=== PATIENT | male | born 1965 | race Caucasian/White ===

== ENCOUNTER 2022-08-27 19:05 | Inpatient (IN) | payer OTHER, SELFPAY ==
[2022-08-27] VITALS (65 sets, daily range): BP systolic 125–223; BP diastolic 64–105; PULSE 104–128; RESP 15–38; TEMP 36.6; O2SAT 86–98; BMI 30.1
--- NOTE | 2022-08-27 19:07 | DI.RAD.S_ITS ---
PROCEDURE: XR CHEST 1V INDICATIONS: SOB TECHNIQUE: One view of the chest was acquired. COMPARISON: None. FINDINGS: Surgical changes and devices: None. Lungs and pleura: Mild patchy reticulonodular pulmonary opacity. No pleural effusions or pneumothorax. Mediastinum: Mediastinal contours appear normal. Heart size is normal. Bones and chest wall: No suspicious bony lesions. Overlying soft tissues appear unremarkable. IMPRESSION: Mild atypical pneumonia. Dictated by: Yamilet Wesley M.D. on 08/27/2022 at 19:56 Approved by: Yamilet Wesley M.D. on 08/27/2022 at 19:56
--- NOTE | 2022-08-27 19:08 | ED.GENADULT ---
HPI - General Adult General Chief complaint: Shortness of Breath/Dyspnea Stated complaint: SOB Time Seen by Provider: 08/27/22 19:05 Source: patient and EMS Mode of arrival: EMS History of Present Illness HPI narrative: Patient is a 56-year-old male who arrived by EMS for evaluation of shortness of breath. Patient does have a history of COPD. Not on home oxygen. Is a smoker. Started having shortness of breath a couple days ago but worsening over the past 24 hours. No fevers. Is having a cough. Received 1 full DuoNeb by EMS and another half DuoNeb by EMS prior to arrival. Patient reports that he is having some heaviness on his chest. Reports no abdominal pain. No nausea or vomiting. He states that the nebulizer has helped his breathing somewhat but he is not back to normal. EMS reports they found the patient hypoxic into the 70s upon their arrival. His saturations did improve with oxygen and nebulizer. Related Data Allergies Allergy/AdvReac Type Severity Reaction Status Date / Time No Known Drug Allergies Allergy Verified 08/27/22 19:12 Review of Systems Review of Systems ROS Unobtainable: All systems reviewed & are unremarkable except as noted in HPI and below Patient History Medical History COPD (chronic obstructive pulmonary disease) Social History Smoking Status: Current every day smoker Exam Initial Vital Signs Initial Vital Signs: Vital Signs Temperature 97.9 F 08/27/22 19:05 Pulse Rate 120 H 08/27/22 19:05 Respiratory Rate 35 H 08/27/22 19:05 Blood Pressure 182/98 H 08/27/22 19:05 Pulse Oximetry 86 L 08/27/22 19:05 Oxygen Delivery Method 08/27/22 19:05 Oxygen Flow Rate 2 08/27/22 19:05 Const General: acute distress and ill appearing [facility] Head: normal to inspection and normocephalic Eyes General: Yes appearance normal, both eyes and all related structures Chest Chest: normal inspection of the chest Resp Effort & Inspection: labored, respiratory distress, retractions and tachypneic Auscultation: diminished lung sounds, rhonchi and wheezes Cardio Rate: tachycardic Rhythm: regular rhythm GI Inspection: normal to inspection and non-distended Skin General: No erythema Neuro General: patient alert, patient awake and moves all extremities Extrem General: No edema Psych Appearance: disheveled Course Orders Ordered: ED Orders 08/27/22 19:07 XR chest 1V Stat EKG-12 Lead Stat 08/27/22 19:13 Complete Blood Count AUTO DIFF Stat 08/27/22 19:26 Covid-19 + FLU A/B + RSV - PCR Stat 08/27/22 19:40 Comprehensive Metabolic Panel Stat Lipase Stat NT-proBNP (BNP-Adult 18+) Stat Troponin & CK Cardiac Panel Stat 08/27/22 19:55 ABG [Arterial Blood Gas] Stat 08/27/22 20:55 EKG-12 Lead Stat 08/27/22 21:45 Troponin & CK Cardiac Panel Stat 08/27/22 21:46 ABG [Arterial Blood Gas] Urgent 08/27/22 23:23 ABG [Arterial Blood Gas] Stat Acetaminophen (Acetaminophen 325 Mg Tablet) 650 mg PO Q6H PRN PRN Reason: Fever/Mild Pain (1-3) Albuterol (Albuterol 2.5 Mg/3 Ml Neb (Adult)) 2.5 mg INH [id number] PRN PRN Reason: Shortness Of Breath Or Wheezing Dexamethasone (Dexamethasone 10 Mg/Ml Vial) 6 mg IV DAILY [facility] Enoxaparin Sodium (Enoxaparin 40 Mg/0.4 Ml Syringe) 40 mg SUBCUT DAILY [facility] Folic Acid (Folic Acid 1 Mg Tablet) 1 mg PO DAILY [facility] Azithromycin 500 mg/ Dextrose 250 mls @ 250 mls/hr IV Q24H [facility] Remdesivir 100 mg/ Sodium (Chloride) 250 mls @ 250 mls/hr IV DAILY [facility] Stop: 08/31/22 09:59 Ipratropium Mcnabb (Ipratropium 0.5 Mg/2.5 Ml Neb) 0.5 mg INH [id number] JASPREET Multivitamins (Multivitamin 1 Tablet) 1 tab PO DAILY [facility] Naloxone HCl (Naloxone 0.4 Mg/Ml Vial) 0.2 mg IV Q2MIN PRN PRN Reason: Opiate Reversal Pantoprazole Sodium (Pantoprazole 40 Mg Vial) 40 mg IV DAILY [facility] Thiamine HCl (Thiamine 100 Mg Tablet) 100 mg PO DAILY JASPREET Stop: 08/31/22 09:01 Discontinued Medications Albuterol (Albuterol 2.5 Mg/3 Ml Neb (Adult)) 20 mg INH NOW ONE Stop: 08/27/22 19:06 Last Admin: 08/27/22 19:15 Dose: 20 mg Documented By: ANNIA Albuterol/Ipratropium (Albuterol/Ipratropium 3 Ml Ampul) 6 ml INH NOW ONE Stop: 08/27/22 19:49 Last Admin: 08/27/22 19:54 Dose: 6 ml Documented By: ANNIA Furosemide (Furosemide 40 Mg/4 Ml Vial) 40 mg IV NOW ONE Stop: 08/27/22 19:44 Last Admin: 08/27/22 20:04 Dose: 40 mg Documented By: MANI Remdesivir 200 mg/ Sodium (Chloride) 250 mls @ 250 mls/hr IV NOW ONE Stop: 08/28/22 01:21 Lorazepam (Lorazepam 2 Mg/Ml Inj) 1 mg IV NOW ONE Stop: 08/27/22 22:01 Last Admin: 08/27/22 23:05 Dose: 0.5 mg Documented By: ANA Methylprednisolone (Methylprednisolone 125 Mg/2 Ml Vial) 125 mg IV NOW ONE Stop: 08/27/22 19:07 Last Admin: 08/27/22 19:16 Dose: 125 mg Documented By: MANI Nitroglycerin (Nitroglycerin Oint 1 Inch/Gm Oint...G.) 1 inch TOP NOW ONE Stop: 08/27/22 20:54 Last Admin: 08/27/22 20:59 Dose: 1 inch Documented By: ANA Vital Signs Vital signs: Vital Signs - 8 hr 08/27/22 19:05 08/27/22 19:16 08/27/22 19:54 Temperature 97.9 F Pulse Rate 120 H 120 H 114 H Respiratory Rate 35 H 24 26 H Blood Pressure 182/98 H Pulse Oximetry 86 L 98 95 Oxygen Delivery Method Nasal Cannula Aerosol Mask Nasal Cannula Oxygen Flow Rate 2 8 3 Fraction of Inspired Oxygen 08/27/22 20:11 08/27/22 19:25 08/27/22 19:30 Temperature Pulse Rate 121 H Respiratory Rate 35 H Blood Pressure 223/97 H 197/96 H Pulse Oximetry 98 Oxygen Delivery Method Oxygen Flow Rate Fraction of Inspired Oxygen 35 08/27/22 19:30 08/27/22 19:35 08/27/22 19:40 Temperature Pulse Rate 120 H 119 H 120 H Respiratory Rate 34 H 33 H 33 H Blood Pressure Pulse Oximetry 97 97 Oxygen Delivery Method Oxygen Flow Rate Fraction of Inspired Oxygen 08/27/22 19:45 08/27/22 19:50 08/27/22 19:55 Temperature Pulse Rate 117 H 117 H 115 H Respiratory Rate 37 H 34 H 36 H Blood Pressure Pulse Oximetry 93 93 Oxygen Delivery Method Oxygen Flow Rate Fraction of Inspired Oxygen 08/27/22 20:00 08/27/22 20:00 08/27/22 20:05 Temperature Pulse Rate 115 H 116 H Respiratory Rate 32 H 33 H Blood Pressure 223/97 H Pulse Oximetry 95 96 Oxygen Delivery Method Oxygen Flow Rate Fraction of Inspired Oxygen 08/27/22 20:10 08/27/22 20:15 08/27/22 20:20 Temperature Pulse Rate 113 H 114 H 112 H Respiratory Rate 34 H 34 H 32 H Blood Pressure Pulse Oximetry 95 94 96 Oxygen Delivery Method Oxygen Flow Rate Fraction of Inspired Oxygen 08/27/22 20:25 08/27/22 20:30 08/27/22 20:31 Temperature Pulse Rate 110 H 110 H 113 H Respiratory Rate 35 H 32 H 32 H Blood Pressure Pulse Oximetry 94 93 94 Oxygen Delivery Method BiPAP BiPAP Oxygen Flow Rate Fraction of Inspired Oxygen 08/27/22 20:31 08/27/22 20:35 08/27/22 20:40 Temperature Pulse Rate 109 H 108 H Respiratory Rate 33 H 31 H Blood Pressure 151/70 H Pulse Oximetry 93 93 Oxygen Delivery Method BiPAP BiPAP Oxygen Flow Rate Fraction of Inspired Oxygen 08/27/22 20:45 08/27/22 20:50 08/27/22 20:55 Temperature Pulse Rate 108 H 106 H 104 H Respiratory Rate 33 H 30 H 30 H Blood Pressure Pulse Oximetry 92 92 92 Oxygen Delivery Method BiPAP BiPAP BiPAP Oxygen Flow Rate Fraction of Inspired Oxygen 08/27/22 21:00 08/27/22 21:00 08/27/22 21:05 Temperature Pulse Rate 105 H 109 H Respiratory Rate 30 H 26 H Blood Pressure 132/70 Pulse Oximetry 95 96 Oxygen Delivery Method BiPAP BiPAP Oxygen Flow Rate Fraction of Inspired Oxygen 08/27/22 21:10 08/27/22 21:15 08/27/22 21:20 Temperature Pulse Rate 104 H 104 H 104 H Respiratory Rate 32 H 33 H 31 H Blood Pressure Pulse Oximetry 96 94 94 Oxygen Delivery Method BiPAP Oxygen Flow Rate Fraction of Inspired Oxygen 08/27/22 21:25 08/27/22 21:30 08/27/22 21:30 Temperature Pulse Rate 109 H 105 H Respiratory Rate 29 H 31 H Blood Pressure 132/64 Pulse Oximetry 93 93 Oxygen Delivery Method Oxygen Flow Rate Fraction of Inspired Oxygen 08/27/22 22:19 08/27/22 21:35 08/27/22 21:40 Temperature Pulse Rate 107 H 108 H Respiratory Rate 31 H 30 H Blood Pressure 173/105 H Pulse Oximetry 94 94 Oxygen Delivery Method Oxygen Flow Rate Fraction of Inspired Oxygen 35 08/27/22 21:45 08/27/22 21:50 08/27/22 21:55 Temperature Pulse Rate 112 H 111 H 118 H Respiratory Rate 29 H 32 H 30 H Blood Pressure Pulse Oximetry 95 96 97 Oxygen Delivery Method Oxygen Flow Rate Fraction of Inspired Oxygen 08/27/22 22:00 08/27/22 22:03 08/27/22 22:03 Temperature Pulse Rate 121 H 122 H Respiratory Rate 31 H 31 H Blood Pressure 173/105 H Pulse Oximetry 94 95 Oxygen Delivery Method Oxygen Flow Rate Fraction of Inspired Oxygen 08/27/22 22:05 08/27/22 22:10 08/27/22 22:15 Temperature Pulse Rate 121 H 128 H 122 H Respiratory Rate 28 H 34 H 33 H Blood Pressure Pulse Oximetry 95 95 97 Oxygen Delivery Method Oxygen Flow Rate Fraction of Inspired Oxygen 08/27/22 22:20 08/27/22 22:25 08/27/22 22:30 Temperature Pulse Rate 121 H 119 H Respiratory Rate 31 H 31 H Blood Pressure 130/77 Pulse Oximetry 97 95 Oxygen Delivery Method Oxygen Flow Rate Fraction of Inspired Oxygen 08/27/22 22:30 08/27/22 22:35 08/27/22 22:40 Temperature Pulse Rate 116 H 113 H 112 H Respiratory Rate 30 H 33 H 32 H Blood Pressure Pulse Oximetry 95 95 94 Oxygen Delivery Method Oxygen Flow Rate Fraction of Inspired Oxygen 08/27/22 22:45 08/27/22 22:50 08/27/22 22:55 Temperature Pulse Rate 111 H 111 H 109 H Respiratory Rate 34 H 37 H 38 H Blood Pressure Pulse Oximetry 94 95 95 Oxygen Delivery Method Oxygen Flow Rate Fraction of Inspired Oxygen 08/27/22 23:00 08/27/22 23:05 08/27/22 23:10 Temperature Pulse Rate 109 H 109 H 109 H Respiratory Rate Blood Pressure Pulse Oximetry 95 95 94 Oxygen Delivery Method Oxygen Flow Rate Fraction of Inspired Oxygen 08/27/22 23:15 08/27/22 23:17 08/27/22 23:17 Temperature Pulse Rate 119 H 121 H Respiratory Rate Blood Pressure 125/77 Pulse Oximetry 93 Oxygen Delivery Method Oxygen Flow Rate Fraction of Inspired Oxygen 08/27/22 23:20 08/27/22 23:25 08/27/22 23:30 Temperature Pulse Rate 122 H 117 H 121 H Respiratory Rate 31 H 31 H 35 H Blood Pressure Pulse Oximetry 93 93 94 Oxygen Delivery Method Oxygen Flow Rate Fraction of Inspired Oxygen 08/27/22 23:31 08/27/22 23:31 08/27/22 23:35 Temperature Pulse Rate 120 H Respiratory Rate Blood Pressure 166/99 H 173/98 H Pulse Oximetry 94 Oxygen Delivery Method Oxygen Flow Rate Fraction of Inspired Oxygen 08/27/22 23:35 08/27/22 23:40 08/27/22 23:40 Temperature Pulse Rate 126 H 126 H Respiratory Rate 33 H Blood Pressure 172/87 H Pulse Oximetry 95 96 Oxygen Delivery Method Oxygen Flow Rate Fraction of Inspired Oxygen 08/27/22 23:45 08/27/22 23:50 08/27/22 23:50 Temperature Pulse Rate 120 H 124 H Respiratory Rate 31 H 31 H Blood Pressure 153/80 H Pulse Oximetry 96 96 Oxygen Delivery Method Oxygen Flow Rate Fraction of Inspired Oxygen 08/27/22 23:55 08/27/22 23:56 08/27/22 23:56 Temperature Pulse Rate 124 H 125 H Respiratory Rate Blood Pressure 133/87 Pulse Oximetry 97 96 Oxygen Delivery Method Oxygen Flow Rate Fraction of Inspired Oxygen 08/28/22 00:00 08/28/22 00:00 08/28/22 00:10 Temperature Pulse Rate 124 H Respiratory Rate 32 H Blood Pressure 137/87 135/86 Pulse Oximetry 96 Oxygen Delivery Method Oxygen Flow Rate Fraction of Inspired Oxygen 35 Medical Decision Making Lab Data Lab results reviewed: Yes I reviewed the patient's lab results. Result diagrams: 08/27/22 19:13 08/27/22 19:40 Labs: Lab Results 08/27/22 08/27/22 08/27/22 Range/Units 19:13 19:26 19:40 WBC 14.9 H (4.5-11.0) X10^3/uL RBC 5.33 (4.5-5.9) X10^6/uL Hgb 18.3 H (13.5-17.5) g/dL Hct 54.3 H (41-53) % MCV 101.8 H (80-100) fL MCH 34.2 H (26-34) PG MCHC 33.6 (30-36) % RDW 15.4 H (11.6-14.8) % Plt Count 313 (150-400) X10^3/uL Neut % (Auto) 86.3 H (50-75) % Lymph % (Auto) 5.2 L (25-40) % Woodward % (Auto) 8.2 (3-14) % Eos % (Auto) 0.1 L (2-4) % Baso % (Auto) 0.2 (0-2) % Neut # (Auto) 15180 H (6310-4170) /uL Lymph # (Auto) 800 L (7781-5623) /uL Woodward # (Auto) 1200 H (0-900) /uL Eos # (Auto) 0 (0-450) /uL Baso # (Auto) 0 (0-100) /uL ABG pH (7.35-7.45) ABG pCO2 (35-45) mmHg ABG pO2 (80-100) mmHg ABG HCO3 (22-26) mmol/L ABG Total CO2 (21-31) mmol/L ABG O2 Saturation (95-100) % ABG Base Excess (-2-2) mmol/L FiO2 Sodium 131 L (137-145) mmol/L Potassium 3.7 (3.4-5.1) mmol/L Chloride 84 L (98-107) mmol/L Carbon Dioxide 33 H (22-32) mmol/L BUN 29 H (9-20) mg/dL Creatinine 2.18 H (0.66-1.25) mg/dL Estimated GFR 34 L (>60) mL/min BUN/Creatinine Ratio 13.3 (6-22) Glucose 159 H (70-100) mg/dL Calcium 10.1 (8.4-10.2) mg/dL Total Bilirubin 1.1 (0.2-1.3) mg/dL AST 30 (17-59) IU/L ALT 23 (<50) IU/L Alkaline Phosphatase 99 (38-126) U/L Total Creatine Kinase 55 (55-170) U/L CK-MB (CK-2) TNP CK-MB (CK-2) Rel Index TNP Troponin I 0.160 H* (0.01-0.034) ng/mL NT-Pro-B Natriuret Pep 3930 H (<125) pg/mL Total Protein 8.4 H (6.3-8.2) g/dL Albumin 4.4 (3.5-5.0) g/dL Globulin 4.0 (1.7-4.1) g/dL Albumin/Globulin Ratio 1.1 (1.0-2.8) Lipase 50 (23-300) U/L SARS-CoV-2 (PCR) Positive H (Negative) Influenza A (RT-PCR) Flu a positive H (NEGATIVE) Influenza B (RT-PCR) Flu b negative (NEGATIVE) RSV (PCR) Negative (Negative) 08/27/22 08/27/22 08/27/22 Range/Units 19:55 21:45 21:46 WBC (4.5-11.0) X10^3/uL RBC (4.5-5.9) X10^6/uL Hgb (13.5-17.5) g/dL Hct (41-53) % MCV (80-100) fL MCH (26-34) PG MCHC (30-36) % RDW (11.6-14.8) % Plt Count (150-400) X10^3/uL Neut % (Auto) (50-75) % Lymph % (Auto) (25-40) % Woodward % (Auto) (3-14) % Eos % (Auto) (2-4) % Baso % (Auto) (0-2) % Neut # (Auto) (3246-0216) /uL Lymph # (Auto) (8779-8450) /uL Woodward # (Auto) (0-900) /uL Eos # (Auto) (0-450) /uL Baso # (Auto) (0-100) /uL ABG pH 7.13 L* 7.16 L* (7.35-7.45) ABG pCO2 108.5 H* 103.5 H* (35-45) mmHg ABG pO2 102 H 87 (80-100) mmHg ABG HCO3 36 H 37 H (22-26) mmol/L ABG Total CO2 39 H 40 H (21-31) mmol/L ABG O2 Saturation 95 92 L (95-100) % ABG Base Excess 7.0 H 8.0 H (-2-2) mmol/L FiO2 32 35 Sodium (137-145) mmol/L Potassium (3.4-5.1) mmol/L Chloride (98-107) mmol/L Carbon Dioxide (22-32) mmol/L BUN (9-20) mg/dL Creatinine (0.66-1.25) mg/dL Estimated GFR (>60) mL/min BUN/Creatinine Ratio (6-22) Glucose (70-100) mg/dL Calcium (8.4-10.2) mg/dL Total Bilirubin (0.2-1.3) mg/dL AST (17-59) IU/L ALT (<50) IU/L Alkaline Phosphatase (38-126) U/L Total Creatine Kinase 67 (55-170) U/L CK-MB (CK-2) TNP CK-MB (CK-2) Rel Index TNP Troponin I 0.174 H* (0.01-0.034) ng/mL NT-Pro-B Natriuret Pep (<125) pg/mL Total Protein (6.3-8.2) g/dL Albumin (3.5-5.0) g/dL Globulin (1.7-4.1) g/dL Albumin/Globulin Ratio (1.0-2.8) Lipase (23-300) U/L SARS-CoV-2 (PCR) (Negative) Influenza A (RT-PCR) (NEGATIVE) Influenza B (RT-PCR) (NEGATIVE) RSV (PCR) (Negative) 08/27/22 Range/Units 23:23 WBC (4.5-11.0) X10^3/uL RBC (4.5-5.9) X10^6/uL Hgb (13.5-17.5) g/dL Hct (41-53) % MCV (80-100) fL MCH (26-34) PG MCHC (30-36) % RDW (11.6-14.8) % Plt Count (150-400) X10^3/uL Neut % (Auto) (50-75) % Lymph % (Auto) (25-40) % Woodward % (Auto) (3-14) % Eos % (Auto) (2-4) % Baso % (Auto) (0-2) % Neut # (Auto) (3996-5808) /uL Lymph # (Auto) (6388-7722) /uL Woodward # (Auto) (0-900) /uL Eos # (Auto) (0-450) /uL Baso # (Auto) (0-100) /uL ABG pH 7.20 L* (7.35-7.45) ABG pCO2 88.4 H* (35-45) mmHg ABG pO2 82 (80-100) mmHg ABG HCO3 35 H (22-26) mmol/L ABG Total CO2 37 H (21-31) mmol/L ABG O2 Saturation 92 L (95-100) % ABG Base Excess 6.0 H (-2-2) mmol/L FiO2 35 Sodium (137-145) mmol/L Potassium (3.4-5.1) mmol/L Chloride (98-107) mmol/L Carbon Dioxide (22-32) mmol/L BUN (9-20) mg/dL Creatinine (0.66-1.25) mg/dL Estimated GFR (>60) mL/min BUN/Creatinine Ratio (6-22) Glucose (70-100) mg/dL Calcium (8.4-10.2) mg/dL Total Bilirubin (0.2-1.3) mg/dL AST (17-59) IU/L ALT (<50) IU/L Alkaline Phosphatase (38-126) U/L Total Creatine Kinase (55-170) U/L CK-MB (CK-2) CK-MB (CK-2) Rel Index Troponin I (0.01-0.034) ng/mL NT-Pro-B Natriuret Pep (<125) pg/mL Total Protein (6.3-8.2) g/dL Albumin (3.5-5.0) g/dL Globulin (1.7-4.1) g/dL Albumin/Globulin Ratio (1.0-2.8) Lipase (23-300) U/L SARS-CoV-2 (PCR) (Negative) Influenza A (RT-PCR) (NEGATIVE) Influenza B (RT-PCR) (NEGATIVE) RSV (PCR) (Negative) Imaging Data Chest x-ray: Radiologist's Impression: [address] [address] XRay Report Signed Patient: Willie Valentin MR#: [id number] : 1965 Acct:[id number] Age/Sex: 56 / M Date of Service: 08/27/22 Loc: ED Accession Number: [id number] ?? Procedure: XR chest 1V Ordering Provider: Gavin French D.O. PROCEDURE:? XR CHEST 1V ? INDICATIONS:? SOB ? TECHNIQUE:? One view of the chest was acquired.? ? COMPARISON:? None. ? FINDINGS:? ? Surgical changes and devices:? None.? ? Lungs and pleura:? Mild patchy reticulonodular pulmonary opacity.? No pleural effusions or pneumothorax.? ? Mediastinum:? Mediastinal contours appear normal.? Heart size is normal.? ? Bones and chest wall:? No suspicious bony lesions.? Overlying soft tissues appear unremarkable.? ? IMPRESSION:? Mild atypical pneumonia. ? ? Dictated by: Yamilet Wesley M.D. on 08/27/2022 at 19:56 ? ? Approved by: Yamilet Wesley M.D. on 08/27/2022 at 19:56?? ECG Data Interpretation: Presentation EKG Sinus tachycardia Ventricular rate 121 Normal axis Artifact noted making ST segment difficult to interpret Repeat EKG Sinus tachycardia Left axis deviation Ventricular rate 108 Normal QRS Normal QTC MDM Narrative Medical decision making narrative: Initially the concern was a COPD exacerbation. He did seem to be improving somewhat with the nebulizers but was still having very coarse breath sounds. He did become somewhat somnolent. An ABG was obtained. He did have a respiratory acidosis with a CO2 of 108. He also has an elevated BNP. Also an elevated troponin. Was also hypertensive. Concern for CHF. He was given nitro paste which improved his blood pressure. Was given Lasix. Troponin was unchanged after 2 hour repeat. He was placed on BiPAP. Initial EKG somewhat difficult to interpret given the baseline artifact. Repeat EKG shows sinus tachycardia without ST elevations. I suspect that his increased troponin was related to demand ischemia given his other presentations. He was given steroids as well. Repeat ABG shows improvement CO2 to 103. We continue with BiPAP. He was tolerating it well. He did have some episodes of agitation. His CO2 continue to improve. Patient was also positive for COVID and influenza a. After discussion with the admission team he was started on remdesivir. He does not have a history of CHF per family. Will admit to ICU for further evaluation and treatment. Critical Care Time Critical Care Time Critical Care Time: Yes Total Critical Care Time: 45 Attestation: The high probability of a clinically significant, sudden or life threatening deterioration of the []cardiovascular, respiratory system(s) required my full and direct attention, intervention and personal management. The aggregate critical care time was [45] minutes. This time is in addition to time spent performing reported procedures but includes the following: [x] Data Review and interpretation [x] Patient assessment and monitoring of vital signs [x] Documentation [x] Medication orders and management Discharge Plan Departure Patient Disposition: Admitted As Inpatient Clinical Impression: Acute hypercapnic respiratory failure, COPD (chronic obstructive pulmonary disease), Hypertension, Influenza A, COVID-19 Admit Date/Time: 08/28/22 00:24 Admit Provider: Shabana Garces
[2022-08-27] MEDS: ALBUTEROL 2.5 MG/3 ML NEB (ADULT) 20 MG INH (19:15)
[2022-08-27] MEDS: methylPREDNISolone 125 MG/2 ML VIAL IV (19:16)
[2022-08-27 19:37] LABS: Add Manual Diff / Slide Review NO; Basophils Absolute Auto 0 /uL (0-100); Basophils Percent Auto 0.2 % (0-2); Eosinophils Absolute Auto 0 /uL (0-450); Eosinophils Percent Auto 0.1 % (2-4); Hematocrit 54.3 % (41-53); Hemoglobin 18.3 g/dL (13.5-17.5); Lymphocytes Absolute Auto 800 /uL (1100-4500); Lymphocytes Percent Auto 5.2 % (25-40); Mean Corpuscular HGB Conc 33.6 % (30-36); Mean Corpuscular Hemoglobin 34.2 PG (26-34); Mean Corpuscular Volume 101.8 fL (80-100); Monocytes Absolute Auto 1200 /uL (0-900); Monocytes Percent Auto 8.2 % (3-14); Neutrophils Absolute Auto 12900 /uL (1500-7000); Neutrophils Percent Auto 86.3 % (50-75); Platelet Count 313 X10^3/uL (150-400); Red Blood Cell Count 5.33 X10^6/uL (4.5-5.9); Red Cell Distribution Width 15.4 % (11.6-14.8); White Blood Cell Count 14.9 X10^3/uL (4.5-11.0)
[2022-08-27] MEDS: ALBUTEROL/IPRATROPIUM 3 ML AMPUL 6 ML INH (19:54)
[2022-08-27] MEDS: FUROSEMIDE 40 MG/4 ML VIAL IV (20:04)
[2022-08-27 20:09] LABS: pH ABG 7.13 (7.35-7.45)
[2022-08-27 20:09] LABS: Influenza A - CEPHEID Flu A POSITIVE (NEGATIVE); Influenza B - CEPHEID Flu B NEGATIVE (NEGATIVE); Respiratory Syncytial Virus Negative (Negative)
[2022-08-27 20:10] LABS: Fractionated Inspired Oxygen 32; HCO3 ABG 36 mmol/L (22-26); Oxygen Saturation ABG 95 % (95-100); PCO2 ABG 108.5 mmHg (35-45); PO2 ABG 102 mmHg (80-100); TCO2 ABG 39 mmol/L (21-31)
[2022-08-27 20:14] LABS: Alanine Aminotransferase 23 IU/L (<50); Albumin 4.4 g/dL (3.5-5.0); Albumin Globulin Ratio 1.1 (1.0-2.8); Alkaline Phosphatase 99 U/L (38-126); Aspartate Aminotransferase 30 IU/L (17-59); BUN Creatinine Ratio 13.3 (6-22); Bilirubin Total 1.1 mg/dL (0.2-1.3); Blood Urea Nitrogen 29 mg/dL (9-20); Calcium 10.1 mg/dL (8.4-10.2); Carbon Dioxide 33 mmol/L (22-32); Chloride 84 mmol/L (98-107); Creatine Kinase 55 U/L (55-170); Estimated Glomerular Filt Rate 34 mL/min (>60); Glucose 159 mg/dL (70-100); HEMOLYSIS < 15 (0-50); Lipase 50 U/L (23-300); Potassium 3.7 mmol/L (3.4-5.1); Sodium 131 mmol/L (137-145); Total Protein 8.4 g/dL (6.3-8.2)
[2022-08-27 20:24] LABS: COVID-19 CEPHEID 4-PLEX PCR POSITIVE (Negative)
[2022-08-27 20:26] LABS: NT-proBNP (BNP-Adult 18+) 3930 pg/mL (<125)
--- NOTE | 2022-08-27 20:27 | PC.NURSE ---
Pts family arrived. Informed that he is +COVID and Flu. Warned of the risks of being in the room with him. They accepted the risk and went into the room with the pt.
[2022-08-27] MEDS: NITROGLYCERIN OINT 1 INCH/GM OINT...G. TOP (20:59)
[2022-08-27 22:05] LABS: Creatine Kinase 67 U/L (55-170)
[2022-08-27 22:10] LABS: HCO3 ABG 37 mmol/L (22-26); Oxygen Saturation ABG 92 % (95-100); PCO2 ABG 103.5 mmHg (35-45); PO2 ABG 87 mmHg (80-100); TCO2 ABG 40 mmol/L (21-31); pH ABG 7.16 (7.35-7.45)
[2022-08-27 22:11] LABS: Fractionated Inspired Oxygen 35
[2022-08-27 22:20] LABS: Troponin I 0.174 ng/mL (0.01-0.034)
[2022-08-27] MEDS: LORazepam 2 MG/ML INJ 1 MG IV (23:05)
[2022-08-28] VITALS (238 sets, daily range): BP systolic 75–159; BP diastolic 48–91; PULSE 98–126; RESP 15–61; TEMP 26.1–36.6; O2SAT 92–100; BMI 30.2
[2022-08-28 00:01] LABS: PCO2 ABG 88.4 mmHg (35-45); PO2 ABG 82 mmHg (80-100)
[2022-08-28 00:02] LABS: Fractionated Inspired Oxygen 35; HCO3 ABG 35 mmol/L (22-26); Oxygen Saturation ABG 92 % (95-100); TCO2 ABG 37 mmol/L (21-31)
--- NOTE | 2022-08-28 00:12 | PC.NURSE ---
Patient became agitated and waiting to pee. Patient informed of cathether. Patient pulled of bipap mask. With assistance from and respiratory therapist we were able to replace the bipap mask.
--- NOTE | 2022-08-28 00:26 | PC.NURSE ---
DIRECTOR OF ARCHITECTURE note: Checked in with other hospitals to see if they have any ICU beds opened. Called [facility], [facility], [place], [facility], [facility], and [facility] have zero icu beds. Doctors aware.
--- NOTE | 2022-08-28 00:50 | DI.ECHO.S_ITS ---
[facility] +---------+ : : [address] : : : : [id number] : : : : Phone: [phone] Echocardiogram Report + + :Name: KEILA BYERS Study Date: 08/28/2022 Height: 70 in : :[facility] ReadingLocation: Weight: 210 lb : : Gender: Male BSA: 2.1 m2 : :: 1965 Age: 56 yrs BP: 126/71 mmHg: :Reason For Study: Elevated troponin, shortness of breath : :Ordering Physician: ARIE, : :SHELLY Performed By: Sandra Colunga : :Referring: SHELLY SARGENT : + + Interpretation Summary 1) Moderately increased left ventricular thickness (concentric) with small size, normal wall motion, and normal systolic function (EF 65-70%). 2) Moderately enlarged right ventricle with mildly reduced function. The apex of the RV is hypokinetic, suggesting Craig sign (acute cor pulmonale- example pulmonary embolism). 3) No significant valvular abnormalities. 4) No prior Echo available for comparison. Recommend ruling out acute pulmonary embolism. Procedure: A two-dimensional transthoracic echocardiogram with color flow and Doppler was performed. The study quality was technically difficult. The patient was in sinus tachycardia with heart rates between 105-115 bpm during the exam. Left Ventricle: Left ventricular wall thickness is moderately increased. The left ventricular cavity is small. The ejection fraction is estimated to be 65- 70%. Diastolic parameters suggest a relaxation abnormality of the left ventricle, consistent with probable normal filling pressures. Right Ventricle: The right ventricle is moderately dilated. Right ventricular systolic function is mildly reduced. The apex of the RV is hypokinetic, suggesting Craig sign. Atria: The left atrium is not well visualized. Right atrial size is normal. Doppler interrogation and injection of saline echo contrast shows no evidence for an interatrial shunt. Mitral Valve: The mitral valve is normal in structure and function. There is no mitral regurgitation noted. Aortic Valve: The aortic valve is normal in structure and function. There is no aortic valve stenosis. No aortic regurgitation is present. Tricuspid Valve: The tricuspid valve is normal in structure and function. There is a trace or physiologic amount of tricuspid regurgitation. Pulmonary artery pressures cannot be estimated because of the lack of a measurable TR jet velocity. Pulmonic Valve: The pulmonic valve leaflets are thin and pliable; valve motion is normal. Great Vessels: The aortic root is normal size. The ascending aorta could not be visualized. The aortic arch could not be visualized. The IVC is dilated (diameter is greater than 2.1 cm) and it collapses less than 50% with a sniff. This suggests a high right atrial pressure of 15 mm Hg. Pericardium/ Pleura There is no pericardial effusion. There is an anterior echo-free space consistent with a fat pad. There is no pleural effusion. MMode/2D Measurements & Calculations LVIDd: 3.1 cm LVOT diam: 2.2 cm LVIDs: 2.0 cm Ao root diam: 3.4 cm FS: 36.9 % EPSS: 0.15 cm IVSd: 1.5 cm LVPWd: 1.5 cm LV almaraz. diameter/BSA (cm/m^2): 1.5 LV sys. diameter/BSA (cm/m^2): 0.92 RA long axis: 4.7 cm TAPSE: 1.8 cm RA area: 17.3 cm2 RA vol: 54.0 ml RA : 25.3 ml/m2 Doppler Measurements & Calculations Ao V2 max: 124.6 cm/sec LVOT Max David: 117.5 cm/sec Ao V2 mean: 103.3 cm/sec LV V1 max P.5 mmHg Ao max P.2 mmHg LV V1 VTI: 21.6 cm Ao mean P.4 mmHg KIARA(I,D): 4.0 cm2 Ao V2 VTI: 21.2 cm KIARA(V,D): 3.7 cm2 sev ratio: 1.0 KIARA indexed to BSA (cm^2/m^2): 1.9 MV E max david: 55.9 cm/sec TR max david: 246.0 cm/sec MV A max david: 80.5 cm/sec TR max P.2 mmHg MV E/A: 0.69 PA V2 max: 78.5 cm/sec Med Peak E' David: 7.4 cm/sec PA V2 mean: 59.5 cm/sec E/E' med: 7.6 PA mean P.5 mmHg Lat Peak E' David: 7.4 cm/sec E/E' lat: 7.5 E/e' average: 7.6 MV dec time: 0.20 sec MVA(VTI): 6.7 cm2 MV V2 mean: 74.2 cm/sec SV(LVOT): 84.6 ml MV mean P.4 mmHg MV V2 VTI: 12.7 cm Reading Physician:12:29 PM
[2022-08-28] MEDS: REMDESIVIR 200 MG in SODIUM CHLORIDE 0.9% 210 ML 250 MG IV (01:56)
[2022-08-28] MEDS: AZITHROMYCIN 500 MG in DEXTROSE 5% IN WATER 250 ML 250 MG IV (02:06)
[2022-08-28] MEDS: cefTRIAXone 1,000 MG in SODIUM CHLORIDE 0.9% 100 ML 200 MG IV (03:24)
--- NOTE | 2022-08-28 03:25 | P.HP_ITS ---
History of Present Illness History of Present Illness Date Patient Seen: 08/28/22 Time Patient Seen: 00:24 Chief complaint: SOB Narrative: Willie Valentin is a 56-year-old male who arrived by EMS for evaluation of shortness of breath.? Patient does have a history of COPD but is not on home oxygen.? Unable to obtain history from the patient as he is currently on BiPAP and appears to be mildly encephalopathic. History is obtained from his and the emergency department provider. Patient is a smoker, per his he normally smokes 1 pack a day but as of recent has been smoking 2-3 packs per day.? Started having shortness of breath a couple days ago but worsening over the past 24 hours.? She denies he is had any fevers but is having a cough.? Patient reports that he is having some heaviness on his chest.? Denied abdominal pain, nausea or vomiting.? Received 1 full DuoNeb by EMS and another half DuoNeb by EMS prior to arrival to the ED.?He states that the nebulizer has helped his breathing somewhat but he is not back to normal.? EMS reports they found the patient hypoxic into the 70s upon their arrival.? His saturations did improve with oxygen and nebulizer and was put on BiPAP in the ED. As his breathing improved he became a little bit more anxious and was trying to take off his BiPAP mask. Initially the concern was a COPD exacerbation.? He did seem to be improving somewhat with the nebulizers but was still having very coarse breath sounds.? He did become somewhat somnolent.? An ABG was obtained.? He did have a respiratory acidosis with a CO2 of 108.? He also has an elevated BNP an elevated troponin concerning for CHF and was also hypertensive.? He was given nitro paste which improved his blood pressure.? Was given Lasix.? Troponin was unchanged after 2 hour repeat.? He was placed on BiPAP.? Initial EKG somewhat difficult to in terpret given the baseline artifact.? Repeat EKG shows sinus tachycardia without ST elevations.? He was given steroids as well.? Repeat ABG shows improvement CO2 to 103.? He was tolerat bipap well.? He did have some episodes of agitation and confusion.? His CO2 continue to improve.? Patient was also positive for COVID and influenza a.? After discussion with the admission team he was started on rem desivir.? He does not have a history of CHF per family.? Will admit to ICU for further evaluation and treatment. Chest x-ray only indicated mild atypical pneumonia. He does have an elevated white count at 14.9 with a moderate left shift of 13,000, platelet count 313. Initial presenting pH was 7.13 it is now improved to 7.2, pCO2 was initially 108.5 and it is now 88.4 sodium 131 chloride 84 serum CO2 is 33 creatinine 2.18 unknown what his baseline is with an EGFR of 34 and a BUN of 29 glucose 159 initial troponin at 7:40 p.m. was 0.160, it increased to 0.174 at 9:45 p.m. and a 6 hour troponin is pending, proBNP was 3930 inpatient is positive for both COVID-19 and influenza a. Patient History Medical History COPD (chronic obstructive pulmonary disease) Family & Social History Family history unavailable: Yes Safety & Behavioral: Feels Safe in Current Yes Environment Been Physically Hurt or No Threatened By a Person Tobacco & Substance use: Smoking Status Current every day smoker 1-2 packs per day alcohol intake frequency daily Substance Use Type does not use Meds Home Medications and Allergies Allergies Allergy/AdvReac Type Severity Reaction Status Date / Time No Known Drug Allergies Allergy Verified 08/27/22 19:12 Review of Systems Review of Systems ROS: Yes unobtainable due to mental status Exam Vital Signs (past 8 hours): - 08/27/22 19:54 08/27/22 20:11 08/27/22 19:30 Pulse Rate 114 H Respiratory Rate 26 H Blood Pressure 223/97 H 197/96 H Pulse Oximetry 95 Oxygen Delivery Method Nasal Cannula Oxygen Flow Rate 3 Fraction of Inspired Oxygen 35 08/27/22 19:30 08/27/22 19:35 08/27/22 19:40 Pulse Rate 120 H 119 H 120 H Respiratory Rate 34 H 33 H 33 H Blood Pressure Pulse Oximetry 97 97 Oxygen Delivery Method Oxygen Flow Rate Fraction of Inspired Oxygen 08/27/22 19:45 08/27/22 19:50 08/27/22 19:55 Pulse Rate 117 H 117 H 115 H Respiratory Rate 37 H 34 H 36 H Blood Pressure Pulse Oximetry 93 93 Oxygen Delivery Method Oxygen Flow Rate Fraction of Inspired Oxygen 08/27/22 20:00 08/27/22 20:00 08/27/22 20:05 Pulse Rate 115 H 116 H Respiratory Rate 32 H 33 H Blood Pressure 223/97 H Pulse Oximetry 95 96 Oxygen Delivery Method Oxygen Flow Rate Fraction of Inspired Oxygen 08/27/22 20:10 08/27/22 20:15 08/27/22 20:20 Pulse Rate 113 H 114 H 112 H Respiratory Rate 34 H 34 H 32 H Blood Pressure Pulse Oximetry 95 94 96 Oxygen Delivery Method Oxygen Flow Rate Fraction of Inspired Oxygen 08/27/22 20:25 08/27/22 20:30 08/27/22 20:31 Pulse Rate 110 H 110 H 113 H Respiratory Rate 35 H 32 H 32 H Blood Pressure Pulse Oximetry 94 93 94 Oxygen Delivery Method BiPAP BiPAP Oxygen Flow Rate Fraction of Inspired Oxygen 08/27/22 20:31 08/27/22 20:35 08/27/22 20:40 Pulse Rate 109 H 108 H Respiratory Rate 33 H 31 H Blood Pressure 151/70 H Pulse Oximetry 93 93 Oxygen Delivery Method BiPAP BiPAP Oxygen Flow Rate Fraction of Inspired Oxygen 08/27/22 20:45 08/27/22 20:50 08/27/22 20:55 Pulse Rate 108 H 106 H 104 H Respiratory Rate 33 H 30 H 30 H Blood Pressure Pulse Oximetry 92 92 92 Oxygen Delivery Method BiPAP BiPAP BiPAP Oxygen Flow Rate Fraction of Inspired Oxygen 08/27/22 21:00 08/27/22 21:00 08/27/22 21:05 Pulse Rate 105 H 109 H Respiratory Rate 30 H 26 H Blood Pressure 132/70 Pulse Oximetry 95 96 Oxygen Delivery Method BiPAP BiPAP Oxygen Flow Rate Fraction of Inspired Oxygen 08/27/22 21:10 08/27/22 21:15 08/27/22 21:20 Pulse Rate 104 H 104 H 104 H Respiratory Rate 32 H 33 H 31 H Blood Pressure Pulse Oximetry 96 94 94 Oxygen Delivery Method BiPAP Oxygen Flow Rate Fraction of Inspired Oxygen 08/27/22 21:25 08/27/22 21:30 08/27/22 21:30 Pulse Rate 109 H 105 H Respiratory Rate 29 H 31 H Blood Pressure 132/64 Pulse Oximetry 93 93 Oxygen Delivery Method Oxygen Flow Rate Fraction of Inspired Oxygen 08/27/22 22:19 08/27/22 21:35 08/27/22 21:40 Pulse Rate 107 H 108 H Respiratory Rate 31 H 30 H Blood Pressure 173/105 H Pulse Oximetry 94 94 Oxygen Delivery Method Oxygen Flow Rate Fraction of Inspired Oxygen 35 08/27/22 21:45 08/27/22 21:50 08/27/22 21:55 Pulse Rate 112 H 111 H 118 H Respiratory Rate 29 H 32 H 30 H Blood Pressure Pulse Oximetry 95 96 97 Oxygen Delivery Method Oxygen Flow Rate Fraction of Inspired Oxygen 08/27/22 22:00 08/27/22 22:03 08/27/22 22:03 Pulse Rate 121 H 122 H Respiratory Rate 31 H 31 H Blood Pressure 173/105 H Pulse Oximetry 94 95 Oxygen Delivery Method Oxygen Flow Rate Fraction of Inspired Oxygen 08/27/22 22:05 08/27/22 22:10 08/27/22 22:15 Pulse Rate 121 H 128 H 122 H Respiratory Rate 28 H 34 H 33 H Blood Pressure Pulse Oximetry 95 95 97 Oxygen Delivery Method Oxygen Flow Rate Fraction of Inspired Oxygen 08/27/22 22:20 08/27/22 22:25 08/27/22 22:30 Pulse Rate 121 H 119 H Respiratory Rate 31 H 31 H Blood Pressure 130/77 Pulse Oximetry 97 95 Oxygen Delivery Method Oxygen Flow Rate Fraction of Inspired Oxygen 08/27/22 22:30 08/27/22 22:35 08/27/22 22:40 Pulse Rate 116 H 113 H 112 H Respiratory Rate 30 H 33 H 32 H Blood Pressure Pulse Oximetry 95 95 94 Oxygen Delivery Method Oxygen Flow Rate Fraction of Inspired Oxygen 08/27/22 22:45 08/27/22 22:50 08/27/22 22:55 Pulse Rate 111 H 111 H 109 H Respiratory Rate 34 H 37 H 38 H Blood Pressure Pulse Oximetry 94 95 95 Oxygen Delivery Method Oxygen Flow Rate Fraction of Inspired Oxygen 08/27/22 23:00 08/27/22 23:05 08/27/22 23:10 Pulse Rate 109 H 109 H 109 H Respiratory Rate Blood Pressure Pulse Oximetry 95 95 94 Oxygen Delivery Method Oxygen Flow Rate Fraction of Inspired Oxygen 08/27/22 23:15 08/27/22 23:17 08/27/22 23:17 Pulse Rate 119 H 121 H Respiratory Rate Blood Pressure 125/77 Pulse Oximetry 93 Oxygen Delivery Method Oxygen Flow Rate Fraction of Inspired Oxygen 08/27/22 23:20 08/27/22 23:25 08/27/22 23:30 Pulse Rate 122 H 117 H 121 H Respiratory Rate 31 H 31 H 35 H Blood Pressure Pulse Oximetry 93 93 94 Oxygen Delivery Method Oxygen Flow Rate Fraction of Inspired Oxygen 08/27/22 23:31 08/27/22 23:31 08/27/22 23:35 Pulse Rate 120 H Respiratory Rate Blood Pressure 166/99 H 173/98 H Pulse Oximetry 94 Oxygen Delivery Method Oxygen Flow Rate Fraction of Inspired Oxygen 08/27/22 23:35 08/27/22 23:40 08/27/22 23:40 Pulse Rate 126 H 126 H Respiratory Rate 33 H Blood Pressure 172/87 H Pulse Oximetry 95 96 Oxygen Delivery Method Oxygen Flow Rate Fraction of Inspired Oxygen 08/27/22 23:45 08/27/22 23:50 08/27/22 23:50 Pulse Rate 120 H 124 H Respiratory Rate 31 H 31 H Blood Pressure 153/80 H Pulse Oximetry 96 96 Oxygen Delivery Method Oxygen Flow Rate Fraction of Inspired Oxygen 08/27/22 23:55 08/27/22 23:56 08/27/22 23:56 Pulse Rate 124 H 125 H Respiratory Rate Blood Pressure 133/87 Pulse Oximetry 97 96 Oxygen Delivery Method Oxygen Flow Rate Fraction of Inspired Oxygen 08/28/22 00:00 08/28/22 00:00 08/28/22 00:10 Pulse Rate 124 H Respiratory Rate 32 H Blood Pressure 137/87 135/86 Pulse Oximetry 96 Oxygen Delivery Method Oxygen Flow Rate Fraction of Inspired Oxygen 35 08/28/22 00:45 08/28/22 00:45 08/28/22 00:50 Pulse Rate 108 H Respiratory Rate Blood Pressure 83/53 L 147/89 H Pulse Oximetry 93 Oxygen Delivery Method Oxygen Flow Rate Fraction of Inspired Oxygen 08/28/22 00:50 08/28/22 00:55 08/28/22 00:55 Pulse Rate 119 H 109 H Respiratory Rate Blood Pressure 102/50 L Pulse Oximetry 95 94 Oxygen Delivery Method Oxygen Flow Rate Fraction of Inspired Oxygen 08/28/22 01:00 08/28/22 01:00 08/28/22 01:05 Pulse Rate 109 H Respiratory Rate Blood Pressure 90/52 L 75/48 L Pulse Oximetry 94 Oxygen Delivery Method Oxygen Flow Rate Fraction of Inspired Oxygen 08/28/22 01:05 08/28/22 01:10 08/28/22 01:10 Pulse Rate 109 H 112 H Respiratory Rate Blood Pressure 99/56 L Pulse Oximetry 94 94 Oxygen Delivery Method Oxygen Flow Rate Fraction of Inspired Oxygen 08/28/22 01:15 08/28/22 01:15 08/28/22 01:20 Pulse Rate 117 H Respiratory Rate Blood Pressure 120/80 148/85 H Pulse Oximetry 96 Oxygen Delivery Method Oxygen Flow Rate Fraction of Inspired Oxygen 08/28/22 01:20 08/28/22 01:25 08/28/22 01:25 Pulse Rate 123 H 119 H Respiratory Rate Blood Pressure 149/86 H Pulse Oximetry 94 96 Oxygen Delivery Method Oxygen Flow Rate Fraction of Inspired Oxygen 08/28/22 01:30 08/28/22 01:30 08/28/22 01:35 Pulse Rate 119 H 120 H Respiratory Rate Blood Pressure 150/88 H Pulse Oximetry 96 96 Oxygen Delivery Method Oxygen Flow Rate Fraction of Inspired Oxygen 08/28/22 01:36 08/28/22 01:36 08/28/22 01:40 Pulse Rate 120 H Respiratory Rate Blood Pressure 158/91 H 145/78 H Pulse Oximetry 96 Oxygen Delivery Method Oxygen Flow Rate Fraction of Inspired Oxygen 08/28/22 01:40 08/28/22 01:45 08/28/22 01:45 Pulse Rate 113 H 114 H Respiratory Rate Blood Pressure 137/75 Pulse Oximetry 96 95 Oxygen Delivery Method Oxygen Flow Rate Fraction of Inspired Oxygen 08/28/22 01:50 08/28/22 01:50 08/28/22 01:55 Pulse Rate 114 H Respiratory Rate Blood Pressure 131/78 137/77 Pulse Oximetry 96 Oxygen Delivery Method Oxygen Flow Rate Fraction of Inspired Oxygen 08/28/22 01:55 08/28/22 02:00 08/28/22 02:00 Pulse Rate 112 H 113 H Respiratory Rate Blood Pressure 139/80 Pulse Oximetry 96 96 Oxygen Delivery Method Oxygen Flow Rate Fraction of Inspired Oxygen 08/28/22 02:05 08/28/22 02:05 08/28/22 02:10 Pulse Rate 109 H Respiratory Rate Blood Pressure 132/74 126/81 Pulse Oximetry 96 Oxygen Delivery Method Oxygen Flow Rate Fraction of Inspired Oxygen 08/28/22 02:10 08/28/22 02:15 08/28/22 02:15 Pulse Rate 113 H 110 H Respiratory Rate Blood Pressure 118/65 Pulse Oximetry 96 95 Oxygen Delivery Method Oxygen Flow Rate Fraction of Inspired Oxygen 08/28/22 02:20 08/28/22 02:20 08/28/22 02:25 Pulse Rate 108 H Respiratory Rate Blood Pressure 120/69 124/78 Pulse Oximetry 96 Oxygen Delivery Method Oxygen Flow Rate Fraction of Inspired Oxygen 08/28/22 02:25 08/28/22 02:30 08/28/22 02:30 Pulse Rate 114 H 112 H Respiratory Rate Blood Pressure 117/74 Pulse Oximetry 96 96 Oxygen Delivery Method Oxygen Flow Rate Fraction of Inspired Oxygen 08/28/22 02:35 08/28/22 02:35 08/28/22 02:40 Pulse Rate 109 H Respiratory Rate Blood Pressure 108/71 106/61 Pulse Oximetry 96 Oxygen Delivery Method Oxygen Flow Rate Fraction of Inspired Oxygen 08/28/22 02:40 08/28/22 02:45 08/28/22 01:56 Pulse Rate 105 H 109 H Respiratory Rate Blood Pressure 137/77 Pulse Oximetry 96 97 Oxygen Delivery Method Oxygen Flow Rate Fraction of Inspired Oxygen 35 Fraction of Inspired Oxygen 35 Oxygen Delivery Method BiPAP Oxygen Flow Rate 3 Narrative Exam Narrative: Gen: Arousable, well-developed y.o. 56 male, mildly confused HEENT: normocephalic, atraumatic, conjunctiva clear, sclera non-icteric, oral mucosa pink and moist Neck: supple, full ROM, no JVD, trachea is midline Resp: Faint wheezes bilateral, non-labored breathing CV: RRR, no murmur or rubs Abd: soft, non-tender, normoactive BTs Skin: no lesions or rashes, dry and intact Neuro: Alert and oriented X 2 w/no focal deficits. Difficult to understand due to BiPAP Extremities: moves all 4 extremities, is ambulatory, negative Fidencio?s sign Psyche: normal mood and affect. Objective Labs Result Diagrams: 08/27/22 19:13 08/27/22 19:40 Labs: Laboratory Results - last 24 hr 08/27/22 08/27/22 08/27/22 19:13 19:26 19:40 WBC 14.9 H RBC 5.33 Hgb 18.3 H Hct 54.3 H MCV 101.8 H MCH 34.2 H MCHC 33.6 RDW 15.4 H Plt Count 313 Neut % (Auto) 86.3 H Lymph % (Auto) 5.2 L [place] % (Auto) 8.2 Eos % (Auto) 0.1 L Baso % (Auto) 0.2 Neut # (Auto) 76769 H Lymph # (Auto) 800 L [place] # (Auto) 1200 H Eos # (Auto) 0 Baso # (Auto) 0 ABG pH ABG pCO2 ABG pO2 ABG HCO3 ABG Total CO2 ABG O2 Saturation ABG Base Excess FiO2 Sodium 131 L Potassium 3.7 Chloride 84 L Carbon Dioxide 33 H BUN 29 H Creatinine 2.18 H Estimated GFR 34 L BUN/Creatinine Ratio 13.3 Glucose 159 H Calcium 10.1 Total Bilirubin 1.1 AST 30 ALT 23 Alkaline Phosphatase 99 Total Creatine Kinase 55 CK-MB (CK-2) TNP CK-MB (CK-2) Rel Index TNP Troponin I 0.160 H* NT-Pro-B Natriuret Pep 3930 H Total Protein 8.4 H Albumin 4.4 Globulin 4.0 Albumin/Globulin Ratio 1.1 Lipase 50 SARS-CoV-2 (PCR) Positive H Influenza A (RT-PCR) Flu a positive H Influenza B (RT-PCR) Flu b negative RSV (PCR) Negative 08/27/22 08/27/22 08/27/22 19:55 21:45 21:46 WBC RBC Hgb Hct MCV MCH MCHC RDW Plt Count Neut % (Auto) Lymph % (Auto) [place] % (Auto) Eos % (Auto) Baso % (Auto) Neut # (Auto) Lymph # (Auto) [place] # (Auto) Eos # (Auto) Baso # (Auto) ABG pH 7.13 L* 7.16 L* ABG pCO2 108.5 H* 103.5 H* ABG pO2 102 H 87 ABG HCO3 36 H 37 H ABG Total CO2 39 H 40 H ABG O2 Saturation 95 92 L ABG Base Excess 7.0 H 8.0 H FiO2 32 35 Sodium Potassium Chloride Carbon Dioxide BUN Creatinine Estimated GFR BUN/Creatinine Ratio Glucose Calcium Total Bilirubin AST ALT Alkaline Phosphatase Total Creatine Kinase 67 CK-MB (CK-2) TNP CK-MB (CK-2) Rel Index TNP Troponin I 0.174 H* NT-Pro-B Natriuret Pep Total Protein Albumin Globulin Albumin/Globulin Ratio Lipase SARS-CoV-2 (PCR) Influenza A (RT-PCR) Influenza B (RT-PCR) RSV (PCR) 08/27/22 23:23 WBC RBC Hgb Hct MCV MCH MCHC RDW Plt Count Neut % (Auto) Lymph % (Auto) [place] % (Auto) Eos % (Auto) Baso % (Auto) Neut # (Auto) Lymph # (Auto) [place] # (Auto) Eos # (Auto) Baso # (Auto) ABG pH 7.20 L* ABG pCO2 88.4 H* ABG pO2 82 ABG HCO3 35 H ABG Total CO2 37 H ABG O2 Saturation 92 L ABG Base Excess 6.0 H FiO2 35 Sodium Potassium Chloride Carbon Dioxide BUN Creatinine Estimated GFR BUN/Creatinine Ratio Glucose Calcium Total Bilirubin AST ALT Alkaline Phosphatase Total Creatine Kinase CK-MB (CK-2) CK-MB (CK-2) Rel Index Troponin I NT-Pro-B Natriuret Pep Total Protein Albumin Globulin Albumin/Globulin Ratio Lipase SARS-CoV-2 (PCR) Influenza A (RT-PCR) Influenza B (RT-PCR) RSV (PCR) Assessment & Plan Assessment & Plan narrative: Willie Valentin is admitted for a bilateral bacterial pneumonia in the setting of COVID-19 and influenza A. Acute respiratory failure in the setting of COVID-19 Pneumonia, acute, present on admission * Patient was administered loading dose of IV Remdesevir 200 mg and dexamethasone 6 mg in the ED * Continue IV Remdesevir 100 mg and dexamethasone 6 mg the following day * Patient is initiated on Baricitinib 4 mg po daily due to high risk of accelerating oxygen support requirements. * BipPap, FIO2 35% * He will also be put on IV ceftriaxone and azithromycin * There is a possibility of patient's inability to protect airway so he does run a risk of requiring intubation * Albuterol and DuoNeb nebulizers Suspected congestive heart failure, acute and present on admission * He was diuresed with IV Lasix 40 mg in the ED, consider continuing in the morning depending on his volume status * Complete Echocardiogram ordered for the morning Alcohol dependence, unknown if patient is undergoing withdrawal, present on admission * CIWA protocol with seizure precautions * Oral thiamine multivitamin and folic acid, Ativan as needed VTE Prophylaxis: Wells risk score 7.5 X Enoxaparin 40 mg subQ once daily Bilateral SCDs Patient is admitted to the inpatient intensive care service due to the severity of disease, risks of further disease progression and this stay is expected to exceed 2 midnights. FEN: IV fluids: Saline lock, diet: General diet when able to take p.o., labs: CBC, C/BMP, liver enzymes, Mag, PT/INR Consultants intercept ICU, care and involvement in the patient?s care is appreci ated. Dispo: Admit to the ICU, unknown discharge plans at this time. Code status: Full code, is his her surrogate and POA. [X] I have utilized all available immediate resources to obtain, update, or review of the patient's current medications VTE Deep Vein Thrombosis/Pulmonary Embolism Present on Admission: No MIPS - Admit I confirm the patient?s Advance Care Plan is present, Code status is documented, Surrogate decision maker is in patient?s record: Yes MIPS - DC The patient has current or prior documentation of left ventricular ejection fraction (LVEF) less than 40%, or moderate or severely depressed left ventricular systolic function.: No COVID-19 COVID-19 status: Positive Result date/Date tested (Pos, Neg/Pending): 08/27/22 Time Spent With Patient Critical Care time: I spent a total of 60 minutes of critical care time on this patient's care today; this time is exclusive of procedural time. Scores Wells' Criteria for PE Clinical signs and symptoms of DVT: Yes PE is #1 Dx or equally likely: Yes Heart rate > 100: Yes Immobilization at least 3 days or surg in previous 4 weeks: No History of PE or DVT: No Hemoptysis: No Malignancy w/Treatment within 6 months or palliative: No Wells' PE Score total: 7.5
[2022-08-28 06:08] LABS: Add Manual Diff / Slide Review NO; Basophils Absolute Auto 0 /uL (0-100); Basophils Percent Auto 0.2 % (0-2); Eosinophils Absolute Auto 0 /uL (0-450); Eosinophils Percent Auto 0.1 % (2-4); Hematocrit 49.9 % (41-53); Hemoglobin 16.7 g/dL (13.5-17.5); Lymphocytes Absolute Auto 400 /uL (1100-4500); Lymphocytes Percent Auto 3.5 % (25-40); Mean Corpuscular HGB Conc 33.4 % (30-36); Mean Corpuscular Volume 101.7 fL (80-100); Monocytes Absolute Auto 300 /uL (0-900); Monocytes Percent Auto 2.7 % (3-14); Neutrophils Absolute Auto 11800 /uL (1500-7000); Neutrophils Percent Auto 93.5 % (50-75); Platelet Count 247 X10^3/uL (150-400); Red Cell Distribution Width 15.7 % (11.6-14.8); White Blood Cell Count 12.6 X10^3/uL (4.5-11.0)
[2022-08-28 06:17] LABS: Alanine Aminotransferase 21 IU/L (<50); Albumin 3.9 g/dL (3.5-5.0); Albumin Globulin Ratio 1.1 (1.0-2.8); Alkaline Phosphatase 74 U/L (38-126); Aspartate Aminotransferase 23 IU/L (17-59); BUN Creatinine Ratio 16.1 (6-22); Bilirubin Total 0.7 mg/dL (0.2-1.3); Blood Urea Nitrogen 37 mg/dL (9-20); Calcium 9.5 mg/dL (8.4-10.2); Carbon Dioxide 31 mmol/L (22-32); Chloride 85 mmol/L (98-107); Estimated Glomerular Filt Rate 32 mL/min (>60); Globulin 3.5 g/dL (1.7-4.1); Glucose 157 mg/dL (70-100); HEMOLYSIS < 15 (0-50); Magnesium 1.3 mg/dL (1.6-2.3); Potassium 3.8 mmol/L (3.4-5.1); Sodium 128 mmol/L (137-145); Total Protein 7.4 g/dL (6.3-8.2)
[2022-08-28 06:37] LABS: PCO2 ABG 72.8 mmHg (35-45); PO2 ABG 81 mmHg (80-100); pH ABG 7.29 (7.35-7.45)
[2022-08-28 06:38] LABS: Fractionated Inspired Oxygen 35; HCO3 ABG 35 mmol/L (22-26); Oxygen Saturation ABG 94 % (95-100); TCO2 ABG 37 mmol/L (21-31)
[2022-08-28 07:17] LABS: Creatine Kinase 49 U/L (55-170)
[2022-08-28] MEDS: ALBUTEROL/IPRATROPIUM 3 ML AMPUL INH ×5 (07:25→23:17)
[2022-08-28 07:33] LABS: Troponin I 0.128 ng/mL (0.01-0.034)
[2022-08-28] MEDS: DEXAMETHASONE 10 MG/ML VIAL 6 MG IV (10:01)
[2022-08-28] MEDS: ENOXAPARIN 40 MG/0.4 ML SYRINGE SUBCUT (10:02)
[2022-08-28] MEDS: PANTOPRAZOLE 40 MG VIAL IV (10:02)
[2022-08-28] MEDS: MAGNESIUM SULFATE 2 GM/50 ML PIGGYBACK IV (10:11)
--- NOTE | 2022-08-28 12:41 | DI.CT.S_ITS ---
PROCEDURE: CT ANGIO CHEST PE PROTOCOL INDICATIONS: acute respiratory failure TECHNIQUE: After the administration of intravenous contrast, 2 mm thick sections acquired from the pulmonary apices to the posterior costophrenic angles. 3-dimensional maximum intensity projection (MIP) coronal and sagittal reformats were then acquired through the thorax. For radiation dose reduction, the following was used: automated exposure control, adjustment of mA and/or kV according to patient size. COMPARISON: [facility], CT, CT CHEST WITH CONTRAST, 10/04/2018, 13:10. FINDINGS: Image quality: Excellent. Pulmonary arteries: Pulmonary arteries are normal in size, and demonstrate no intraluminal filling defects to suggest central pulmonary embolism. Lungs and pleura: Lungs are clear. There right basilar infiltrate consistent with atelectasis and/or pneumonia. There is a lobulated masslike opacity in the left lung base measuring 1.5 x 1.6 x 1.4 cm with several adjacent nodules. A focal pneumonia is possible, however the area is suspicious for a solid mass. Recommend follow-up imaging to ensure resolution. No pleural effusions or pneumothorax. Central and peripheral airways are patent. Mediastinum: Heart size is normal, without pericardial effusion. No mediastinal or hilar adenopathy. Thoracic aorta is normal in caliber and enhancement. Esophagus is normal in caliber, without hiatal hernia. Bones and chest wall: No suspicious bony lesions. Ribs and thoracic spine appear intact throughout. Thyroid gland is normal. No axillary or supraclavicular adenopathy. Abdomen: Visualized upper abdominal solid organs appear normal in the early arterial phase of enhancement. IMPRESSION: 1. Lobulated masslike opacity in the left lung base measuring 1.5 x 1.6 x 1.4 cm with several adjacent nodules. A focal pneumonia is possible, however the area suspicious for a solid mass, recommend follow-up imaging to ensure resolution. 2. Right basilar infiltrate consistent with pneumonia and/or atelectasis. Dictated by: Narinder Juarez M.D. on 08/28/2022 at 13:54 Approved by: Narinder Juarez M.D. on 08/28/2022 at 14:00
[2022-08-28 13:27] LABS: Fractionated Inspired Oxygen 35; HCO3 ABG 35 mmol/L (22-26); Oxygen Saturation ABG 94 % (95-100); PO2 ABG 83 mmHg (80-100); TCO2 ABG 37 mmol/L (21-31)
[2022-08-28 13:29] LABS: PCO2 ABG 70.3 mmHg (35-45)
--- NOTE | 2022-08-28 14:21 | P.PN_ITS ---
Subjective Subjective Date Patient Seen: 08/28/22 Interval history: Brief update note: 56 year old male, prior smoker, admitted with shortness of breath and acute hypercapnic respiratory failure. His PCO2 on admission was >100. He was started on BiPAP. He has both flu and COVID infection. Patient has been improving on BiPAP therapy, with pH to 7.3 with PCO2 in the 70s on most recent ABG. Echo showed evidence of cor-pulmonale, CTA was performed which did not reveal a PE but showed a possible solid lung mass in the LLL (about 1.5 cm in all dimensions). His cor pulmonale is likely from COPD given his smoking history and hypercarbia on admission. He was started on therapy for possible COVID with steroids and remdesevir which will also cover his likely COPD exacerbation. Given RLL infiltrate on CT, will also cover with antibiotics for possible superimposed bacterial pneumonia. Troponin was elevated but now downtrending, likely myocardial injury in the setting of demand. Creatinine is 2.3, unknown baseline at this time. Held downstairs given need for CTA for a few hours in ca se he needed transfer for large PE. He will now transition to ICU care, with tele-director global consultation. Exam Vital Signs (past 8 hours): - 08/28/22 06:25 08/28/22 06:25 08/28/22 06:30 Pulse Rate 107 H Respiratory Rate Blood Pressure 122/59 L 133/71 Pulse Oximetry 97 Oxygen Delivery Method Fraction of Inspired Oxygen 08/28/22 06:30 08/28/22 06:35 08/28/22 06:35 Pulse Rate 114 H 106 H Respiratory Rate Blood Pressure 118/61 Pulse Oximetry 96 97 Oxygen Delivery Method Fraction of Inspired Oxygen 08/28/22 06:40 08/28/22 06:40 08/28/22 06:45 Pulse Rate 111 H Respiratory Rate Blood Pressure 120/61 123/61 Pulse Oximetry 97 Oxygen Delivery Method Fraction of Inspired Oxygen 08/28/22 06:45 08/28/22 06:50 08/28/22 06:50 Pulse Rate 106 H 109 H Respiratory Rate Blood Pressure 136/70 Pulse Oximetry 97 97 Oxygen Delivery Method Fraction of Inspired Oxygen 08/28/22 06:55 08/28/22 06:55 08/28/22 07:25 Pulse Rate 106 H 109 H Respiratory Rate 18 Blood Pressure 159/74 H Pulse Oximetry 97 97 Oxygen Delivery Method BiPAP Fraction of Inspired Oxygen 35 08/28/22 07:29 08/28/22 10:37 08/28/22 10:38 Pulse Rate 106 H Respiratory Rate 17 Blood Pressure 115/65 118/75 Pulse Oximetry 96 Oxygen Delivery Method BiPAP Fraction of Inspired Oxygen 35 35 35 08/28/22 08:35 08/28/22 08:40 08/28/22 08:40 Pulse Rate 106 H 110 H Respiratory Rate Blood Pressure 122/73 Pulse Oximetry 96 96 Oxygen Delivery Method BiPAP BiPAP Fraction of Inspired Oxygen 08/28/22 08:45 08/28/22 08:45 08/28/22 08:50 Pulse Rate 107 H Respiratory Rate Blood Pressure 111/62 130/66 Pulse Oximetry 96 Oxygen Delivery Method BiPAP Fraction of Inspired Oxygen 08/28/22 08:50 08/28/22 08:55 08/28/22 08:55 Pulse Rate 110 H 109 H Respiratory Rate Blood Pressure 126/71 Pulse Oximetry 96 96 Oxygen Delivery Method BiPAP BiPAP Fraction of Inspired Oxygen 08/28/22 09:00 08/28/22 09:00 08/28/22 09:05 Pulse Rate 109 H Respiratory Rate Blood Pressure 131/71 143/82 H Pulse Oximetry 97 Oxygen Delivery Method BiPAP Fraction of Inspired Oxygen 08/28/22 09:05 08/28/22 09:10 08/28/22 09:10 Pulse Rate 108 H 106 H Respiratory Rate Blood Pressure 130/69 Pulse Oximetry 97 97 Oxygen Delivery Method BiPAP BiPAP Fraction of Inspired Oxygen 08/28/22 09:15 08/28/22 09:15 08/28/22 09:20 Pulse Rate 108 H Respiratory Rate Blood Pressure 118/71 141/79 H Pulse Oximetry 97 Oxygen Delivery Method BiPAP Fraction of Inspired Oxygen 08/28/22 09:20 08/28/22 09:25 08/28/22 09:25 Pulse Rate 108 H 107 H Respiratory Rate Blood Pressure 139/80 Pulse Oximetry 97 95 Oxygen Delivery Method BiPAP BiPAP Fraction of Inspired Oxygen 08/28/22 09:30 08/28/22 09:30 08/28/22 09:35 Pulse Rate 119 H 109 H Respiratory Rate Blood Pressure 149/72 H Pulse Oximetry 97 97 Oxygen Delivery Method BiPAP BiPAP Fraction of Inspired Oxygen 08/28/22 09:36 08/28/22 09:36 08/28/22 09:40 Pulse Rate 107 H Respiratory Rate Blood Pressure 159/80 H 146/74 H Pulse Oximetry 97 Oxygen Delivery Method BiPAP Fraction of Inspired Oxygen 08/28/22 09:40 08/28/22 09:45 08/28/22 09:45 Pulse Rate 108 H 108 H Respiratory Rate Blood Pressure 146/80 H Pulse Oximetry 96 96 Oxygen Delivery Method BiPAP BiPAP Fraction of Inspired Oxygen 08/28/22 09:50 08/28/22 09:50 08/28/22 09:55 Pulse Rate 108 H Respiratory Rate Blood Pressure 138/76 144/79 H Pulse Oximetry 96 Oxygen Delivery Method BiPAP Fraction of Inspired Oxygen 08/28/22 09:55 08/28/22 10:00 08/28/22 10:00 Pulse Rate 110 H 117 H Respiratory Rate Blood Pressure 143/82 H Pulse Oximetry 96 97 Oxygen Delivery Method BiPAP BiPAP Fraction of Inspired Oxygen 08/28/22 10:05 08/28/22 10:05 08/28/22 10:10 Pulse Rate 116 H Respiratory Rate Blood Pressure 146/89 H 145/84 H Pulse Oximetry 98 Oxygen Delivery Method BiPAP Fraction of Inspired Oxygen 08/28/22 10:10 08/28/22 10:15 08/28/22 10:15 Pulse Rate 112 H 104 H Respiratory Rate Blood Pressure 145/87 H Pulse Oximetry 98 98 Oxygen Delivery Method BiPAP BiPAP Fraction of Inspired Oxygen 08/28/22 10:20 08/28/22 10:20 08/28/22 10:25 Pulse Rate 108 H Respiratory Rate Blood Pressure 139/86 134/76 Pulse Oximetry 96 Oxygen Delivery Method BiPAP Fraction of Inspired Oxygen 08/28/22 10:25 08/28/22 10:30 08/28/22 10:30 Pulse Rate 109 H 113 H Respiratory Rate Blood Pressure 139/82 Pulse Oximetry 97 97 Oxygen Delivery Method BiPAP BiPAP Fraction of Inspired Oxygen 08/28/22 10:35 08/28/22 10:35 08/28/22 11:05 Pulse Rate 114 H 104 H Respiratory Rate Blood Pressure 118/75 Pulse Oximetry 96 96 Oxygen Delivery Method BiPAP BiPAP Fraction of Inspired Oxygen 08/28/22 11:10 08/28/22 11:10 08/28/22 11:15 Pulse Rate 102 H Respiratory Rate Blood Pressure 114/66 117/61 Pulse Oximetry 96 Oxygen Delivery Method BiPAP Fraction of Inspired Oxygen 08/28/22 11:15 08/28/22 11:20 08/28/22 11:20 Pulse Rate 104 H 105 H Respiratory Rate Blood Pressure 117/62 Pulse Oximetry 96 96 Oxygen Delivery Method BiPAP BiPAP Fraction of Inspired Oxygen 08/28/22 11:25 08/28/22 11:25 08/28/22 11:30 Pulse Rate 114 H Respiratory Rate Blood Pressure 118/63 120/59 L Pulse Oximetry 96 Oxygen Delivery Method BiPAP Fraction of Inspired Oxygen 08/28/22 11:30 08/28/22 11:35 08/28/22 11:35 Pulse Rate 102 H 103 H Respiratory Rate Blood Pressure 115/59 L Pulse Oximetry 95 96 Oxygen Delivery Method BiPAP BiPAP Fraction of Inspired Oxygen 08/28/22 11:40 08/28/22 11:40 08/28/22 11:45 Pulse Rate 107 H Respiratory Rate Blood Pressure 117/58 L 114/58 L Pulse Oximetry 96 Oxygen Delivery Method BiPAP Fraction of Inspired Oxygen 08/28/22 11:45 08/28/22 11:50 08/28/22 11:50 Pulse Rate 100 H 103 H Respiratory Rate Blood Pressure 119/64 Pulse Oximetry 94 95 Oxygen Delivery Method BiPAP BiPAP Fraction of Inspired Oxygen 08/28/22 11:55 08/28/22 11:55 08/28/22 12:00 Pulse Rate 98 H Respiratory Rate Blood Pressure 108/56 L 113/59 L Pulse Oximetry 95 Oxygen Delivery Method BiPAP Fraction of Inspired Oxygen 08/28/22 12:00 08/28/22 12:05 08/28/22 12:05 Pulse Rate 102 H 101 H Respiratory Rate Blood Pressure 111/61 Pulse Oximetry 95 95 Oxygen Delivery Method BiPAP BiPAP Fraction of Inspired Oxygen 08/28/22 12:10 08/28/22 12:10 08/28/22 12:15 Pulse Rate 98 H Respiratory Rate Blood Pressure 114/57 L 113/59 L Pulse Oximetry 95 Oxygen Delivery Method BiPAP Fraction of Inspired Oxygen 08/28/22 12:15 08/28/22 12:20 08/28/22 12:20 Pulse Rate 100 H 101 H Respiratory Rate Blood Pressure 109/61 Pulse Oximetry 95 95 Oxygen Delivery Method BiPAP BiPAP Fraction of Inspired Oxygen 08/28/22 12:25 08/28/22 12:25 08/28/22 12:30 Pulse Rate 101 H Respiratory Rate Blood Pressure 112/58 L 118/63 Pulse Oximetry 94 Oxygen Delivery Method BiPAP Fraction of Inspired Oxygen 08/28/22 12:30 08/28/22 12:35 08/28/22 12:35 Pulse Rate 109 H 100 H Respiratory Rate Blood Pressure 116/58 L Pulse Oximetry 95 94 Oxygen Delivery Method BiPAP BiPAP Fraction of Inspired Oxygen 08/28/22 12:40 08/28/22 12:40 08/28/22 12:45 Pulse Rate 108 H Respiratory Rate Blood Pressure 129/65 123/60 Pulse Oximetry 96 Oxygen Delivery Method BiPAP Fraction of Inspired Oxygen 08/28/22 12:45 08/28/22 12:50 08/28/22 12:50 Pulse Rate 101 H 103 H Respiratory Rate Blood Pressure 121/67 Pulse Oximetry 95 95 Oxygen Delivery Method BiPAP BiPAP Fraction of Inspired Oxygen 08/28/22 12:55 08/28/22 12:55 08/28/22 13:00 Pulse Rate 101 H Respiratory Rate Blood Pressure 123/65 121/68 Pulse Oximetry 95 Oxygen Delivery Method BiPAP Fraction of Inspired Oxygen 08/28/22 13:00 08/28/22 13:05 08/28/22 13:05 Pulse Rate 102 H 101 H Respiratory Rate Blood Pressure 124/62 Pulse Oximetry 95 95 Oxygen Delivery Method BiPAP BiPAP Fraction of Inspired Oxygen 08/28/22 13:10 08/28/22 13:46 08/28/22 13:10 Pulse Rate 106 H Respiratory Rate Blood Pressure 113/57 L 120/63 Pulse Oximetry 96 Oxygen Delivery Method BiPAP Fraction of Inspired Oxygen 35 08/28/22 13:10 08/28/22 13:15 08/28/22 13:15 Pulse Rate 111 H Respiratory Rate Blood Pressure 120/63 119/65 Pulse Oximetry 96 Oxygen Delivery Method BiPAP Fraction of Inspired Oxygen 08/28/22 13:20 08/28/22 13:20 08/28/22 13:25 Pulse Rate 101 H 107 H Respiratory Rate Blood Pressure 138/73 Pulse Oximetry 96 96 Oxygen Delivery Method BiPAP BiPAP Fraction of Inspired Oxygen 08/28/22 13:38 08/28/22 13:39 08/28/22 13:39 Pulse Rate 111 H 111 H Respiratory Rate Blood Pressure 129/65 Pulse Oximetry 100 100 Oxygen Delivery Method BiPAP BiPAP Fraction of Inspired Oxygen 08/28/22 13:40 08/28/22 13:40 08/28/22 13:45 Pulse Rate 112 H 111 H Respiratory Rate Blood Pressure 128/64 Pulse Oximetry 100 98 Oxygen Delivery Method BiPAP BiPAP Fraction of Inspired Oxygen 08/28/22 13:46 08/28/22 13:46 08/28/22 13:50 Pulse Rate 112 H Respiratory Rate Blood Pressure 113/57 L 113/57 L Pulse Oximetry 97 Oxygen Delivery Method Fraction of Inspired Oxygen 08/28/22 13:50 08/28/22 13:55 08/28/22 13:55 Pulse Rate 106 H 106 H Respiratory Rate Blood Pressure 108/59 L Pulse Oximetry 97 96 Oxygen Delivery Method BiPAP BiPAP Fraction of Inspired Oxygen 08/28/22 14:00 08/28/22 14:00 08/28/22 14:05 Pulse Rate 103 H Respiratory Rate Blood Pressure 104/65 105/68 Pulse Oximetry 97 Oxygen Delivery Method BiPAP Fraction of Inspired Oxygen 08/28/22 14:05 08/28/22 14:10 08/28/22 14:10 Pulse Rate 109 H 102 H Respiratory Rate Blood Pressure 101/60 Pulse Oximetry 96 95 Oxygen Delivery Method BiPAP BiPAP Fraction of Inspired Oxygen Fraction of Inspired Oxygen 35 SaO2/FiO2 Ratio 274 Oxygen Delivery Method BiPAP Oxygen Flow Rate 3 Objective Labs Result Diagrams: 08/28/22 05:53 08/28/22 05:53 Labs: Laboratory Results - last 24 hr 08/27/22 08/27/22 08/27/22 19:13 19:26 19:40 WBC 14.9 H RBC 5.33 Hgb 18.3 H Hct 54.3 H MCV 101.8 H MCH 34.2 H MCHC 33.6 RDW 15.4 H Plt Count 313 Neut % (Auto) 86.3 H Lymph % (Auto) 5.2 L [place] % (Auto) 8.2 Eos % (Auto) 0.1 L Baso % (Auto) 0.2 Neut # (Auto) 17721 H Lymph # (Auto) 800 L [place] # (Auto) 1200 H Eos # (Auto) 0 Baso # (Auto) 0 ABG pH ABG pCO2 ABG pO2 ABG HCO3 ABG Total CO2 ABG O2 Saturation ABG Base Excess FiO2 Sodium 131 L Potassium 3.7 Chloride 84 L Carbon Dioxide 33 H BUN 29 H Creatinine 2.18 H Estimated GFR 34 L BUN/Creatinine Ratio 13.3 Glucose 159 H Calcium 10.1 Magnesium Total Bilirubin 1.1 AST 30 ALT 23 Alkaline Phosphatase 99 Total Creatine Kinase 55 CK-MB (CK-2) TNP CK-MB (CK-2) Rel Index TNP Troponin I 0.160 H* NT-Pro-B Natriuret Pep 3930 H Total Protein 8.4 H Albumin 4.4 Globulin 4.0 Albumin/Globulin Ratio 1.1 Lipase 50 SARS-CoV-2 (PCR) Positive H Influenza A (RT-PCR) Flu a positive H Influenza B (RT-PCR) Flu b negative RSV (PCR) Negative 08/27/22 08/27/22 08/27/22 19:55 21:45 21:46 WBC RBC Hgb Hct MCV MCH MCHC RDW Plt Count Neut % (Auto) Lymph % (Auto) [place] % (Auto) Eos % (Auto) Baso % (Auto) Neut # (Auto) Lymph # (Auto) [place] # (Auto) Eos # (Auto) Baso # (Auto) ABG pH 7.13 L* 7.16 L* ABG pCO2 108.5 H* 103.5 H* ABG pO2 102 H 87 ABG HCO3 36 H 37 H ABG Total CO2 39 H 40 H ABG O2 Saturation 95 92 L ABG Base Excess 7.0 H 8.0 H FiO2 32 35 Sodium Potassium Chloride Carbon Dioxide BUN Creatinine Estimated GFR BUN/Creatinine Ratio Glucose Calcium Magnesium Total Bilirubin AST ALT Alkaline Phosphatase Total Creatine Kinase 67 CK-MB (CK-2) TNP CK-MB (CK-2) Rel Index TNP Troponin I 0.174 H* NT-Pro-B Natriuret Pep Total Protein Albumin Globulin Albumin/Globulin Ratio Lipase SARS-CoV-2 (PCR) Influenza A (RT-PCR) Influenza B (RT-PCR) RSV (PCR) 08/27/22 08/28/22 08/28/22 23:23 05:53 05:53 WBC 12.6 H RBC 4.90 Hgb 16.7 Hct 49.9 MCV 101.7 H MCH 34.0 MCHC 33.4 RDW 15.7 H Plt Count 247 Neut % (Auto) 93.5 H Lymph % (Auto) 3.5 L [place] % (Auto) 2.7 L Eos % (Auto) 0.1 L Baso % (Auto) 0.2 Neut # (Auto) 66186 H Lymph # (Auto) 400 L [place] # (Auto) 300 Eos # (Auto) 0 Baso # (Auto) 0 ABG pH 7.20 L* ABG pCO2 88.4 H* ABG pO2 82 ABG HCO3 35 H ABG Total CO2 37 H ABG O2 Saturation 92 L ABG Base Excess 6.0 H FiO2 35 Sodium 128 L Potassium 3.8 Chloride 85 L Carbon Dioxide 31 BUN 37 H Creatinine 2.30 H Estimated GFR 32 L BUN/Creatinine Ratio 16.1 Glucose 157 H Calcium 9.5 Magnesium 1.3 L Total Bilirubin 0.7 AST 23 ALT 21 Alkaline Phosphatase 74 Total Creatine Kinase CK-MB (CK-2) CK-MB (CK-2) Rel Index Troponin I NT-Pro-B Natriuret Pep Total Protein 7.4 Albumin 3.9 Globulin 3.5 Albumin/Globulin Ratio 1.1 Lipase SARS-CoV-2 (PCR) Influenza A (RT-PCR) Influenza B (RT-PCR) RSV (PCR) 08/28/22 08/28/22 08/28/22 05:53 06:04 13:05 WBC RBC Hgb Hct MCV MCH MCHC RDW Plt Count Neut % (Auto) Lymph % (Auto) [place] % (Auto) Eos % (Auto) Baso % (Auto) Neut # (Auto) Lymph # (Auto) [place] # (Auto) Eos # (Auto) Baso # (Auto) ABG pH 7.29 L* 7.30 L ABG pCO2 72.8 H* 70.3 H* ABG pO2 81 83 ABG HCO3 35 H 35 H ABG Total CO2 37 H 37 H ABG O2 Saturation 94 L 94 L ABG Base Excess 8.0 H 8.0 H FiO2 35 35 Sodium Potassium Chloride Carbon Dioxide BUN Creatinine Estimated GFR BUN/Creatinine Ratio Glucose Calcium Magnesium Total Bilirubin AST ALT Alkaline Phosphatase Total Creatine Kinase 49 L CK-MB (CK-2) TNP CK-MB (CK-2) Rel Index TNP Troponin I 0.128 H* NT-Pro-B Natriuret Pep Total Protein Albumin Globulin Albumin/Globulin Ratio Lipase SARS-CoV-2 (PCR) Influenza A (RT-PCR) Influenza B (RT-PCR) RSV (PCR) PFSH Medical History COPD (chronic obstructive pulmonary disease) Social History Smoking Status: Current every day smoker Assessment & Plan Time Spent With Patient Critical Care time: I spent a total of [] minutes of critical care time on this patient's care today; this time is exclusive of procedural time.
[2022-08-28] MEDS: REMDESIVIR 100 MG in SODIUM CHLORIDE 0.9% 230 ML 250 MG IV (17:52)
--- NOTE | 2022-08-28 21:08 | PM.CN.EICU ---
History of Present Illness Consult details IF CAMERA ACTIVATED, patient seen via real-time interactive audiovisual communication: Camera activated Chief complaint: SOB Consent obtained for tele-financial services associate care: Yes Patient Location: ICU Provider location (State): [place] Other participants/roles: RN Narrative: 56 year old man with COPD presenting with flu A and covid, trnasferred to icu for further manageemtn of hypercapneic resp failure. Patient intially with pco2 > 100 and severe acidosis - was started on bipap with imrpvoement, currently pco2 is at 70 with imrpovement in ph and clinical condition. on my eval patietn was conversive and comfortable in bed. Imaging reviewd mass like lesion in LLL, TTE consistent with goruop 3 phtn. currently on nebs, steroids and abx. [facility] Medical History COPD (chronic obstructive pulmonary disease) Social History household members: spouse Smoking Status: Current every day smoker alcohol intake: current Current Medications Current Medications Medications: Home Medications apixaban 5 mg tablet (Eliquis) 5 mg PO 1XD 08/28/22 [History Confirmed 08/28/22] hydrochlorothiazide 25 mg tablet 25 mg PO 1XD 08/28/22 [History Confirmed 08/28/22] losartan 100 mg tablet 100 mg PO 1XD 08/28/22 [History Confirmed 08/28/22] Visit Medications (administered) Generic Name Dose Route Start Last Admin Trade Name Freq PRN Reason Stop Dose Admin Albuterol/Ipratropium 3 ml 08/28/22 07:00 08/28/22 19:15 Albuterol/Ipratropium 3 Ml Ampul INH 3 ml [id number] JASPREET Administration Dexamethasone 6 mg 08/28/22 09:00 08/28/22 10:01 Dexamethasone 10 Mg/Ml Vial IV 6 mg DAILY JASPREET Administration Enoxaparin Sodium 40 mg 08/28/22 09:00 08/28/22 10:02 Enoxaparin 40 Mg/0.4 Ml Syringe SUBCUT 40 mg DAILY JASPREET Administration Folic Acid 1 mg 08/28/22 09:00 08/28/22 09:47 Folic Acid 1 Mg Tablet PO Not Given DAILY JASPREET Azithromycin 500 mg/ Dextrose 250 mls @ 250 mls/hr 08/28/22 00:30 08/28/22 03:24 IV Infused Q24H JASPREET Infusion Remdesivir 100 mg/ Sodium 250 mls @ 250 mls/hr 08/28/22 18:00 08/28/22 20:11 Chloride IV 08/31/22 18:59 Infused DAILY@1800 JASPREET Infusion Ceftriaxone Sodium 1,000 mg/ 100 mls @ 200 mls/hr 08/28/22 02:45 08/28/22 04:00 Sodium Chloride IV Infused Q24H JASPREET Infusion Multivitamins 1 tab 08/28/22 09:00 08/28/22 09:47 Multivitamin 1 Tablet PO Not Given DAILY JASPREET Pantoprazole Sodium 40 mg 08/28/22 09:00 08/28/22 10:02 Pantoprazole 40 Mg Vial IV 40 mg DAILY JASPREET Administration Thiamine HCl 100 mg 08/28/22 09:00 08/28/22 09:48 Thiamine 100 Mg Tablet PO 08/31/22 09:01 Not Given DAILY REPLACED BY [facility] Exam Vital Signs (past 8 hours): - 08/28/22 13:10 08/28/22 13:46 08/28/22 13:10 Temperature Pulse Rate 106 H Respiratory Rate Blood Pressure 113/57 L 120/63 Pulse Oximetry 96 Oxygen Delivery Method BiPAP Oxygen Flow Rate Fraction of Inspired Oxygen 35 08/28/22 13:10 08/28/22 13:15 08/28/22 13:15 Temperature Pulse Rate 111 H Respiratory Rate Blood Pressure 120/63 119/65 Pulse Oximetry 96 Oxygen Delivery Method BiPAP Oxygen Flow Rate Fraction of Inspired Oxygen 08/28/22 13:20 08/28/22 13:20 08/28/22 13:25 Temperature Pulse Rate 101 H 107 H Respiratory Rate Blood Pressure 138/73 Pulse Oximetry 96 96 Oxygen Delivery Method BiPAP BiPAP Oxygen Flow Rate Fraction of Inspired Oxygen 08/28/22 13:38 08/28/22 13:39 08/28/22 13:39 Temperature Pulse Rate 111 H 111 H Respiratory Rate Blood Pressure 129/65 Pulse Oximetry 100 100 Oxygen Delivery Method BiPAP BiPAP Oxygen Flow Rate Fraction of Inspired Oxygen 08/28/22 13:40 08/28/22 13:40 08/28/22 13:45 Temperature Pulse Rate 112 H 111 H Respiratory Rate Blood Pressure 128/64 Pulse Oximetry 100 98 Oxygen Delivery Method BiPAP BiPAP Oxygen Flow Rate Fraction of Inspired Oxygen 08/28/22 13:46 08/28/22 13:46 08/28/22 13:50 Temperature Pulse Rate 112 H Respiratory Rate Blood Pressure 113/57 L 113/57 L Pulse Oximetry 97 Oxygen Delivery Method Oxygen Flow Rate Fraction of Inspired Oxygen 08/28/22 13:50 08/28/22 13:55 08/28/22 13:55 Temperature Pulse Rate 106 H 106 H Respiratory Rate Blood Pressure 108/59 L Pulse Oximetry 97 96 Oxygen Delivery Method BiPAP BiPAP Oxygen Flow Rate Fraction of Inspired Oxygen 08/28/22 14:00 08/28/22 14:00 08/28/22 14:05 Temperature Pulse Rate 103 H Respiratory Rate Blood Pressure 104/65 105/68 Pulse Oximetry 97 Oxygen Delivery Method BiPAP Oxygen Flow Rate Fraction of Inspired Oxygen 08/28/22 14:05 08/28/22 14:10 08/28/22 14:10 Temperature Pulse Rate 109 H 102 H Respiratory Rate Blood Pressure 101/60 Pulse Oximetry 96 95 Oxygen Delivery Method BiPAP BiPAP Oxygen Flow Rate Fraction of Inspired Oxygen 08/28/22 14:15 08/28/22 14:15 08/28/22 14:20 Temperature Pulse Rate 104 H Respiratory Rate Blood Pressure 101/61 99/63 Pulse Oximetry 96 Oxygen Delivery Method Oxygen Flow Rate Fraction of Inspired Oxygen 08/28/22 14:20 08/28/22 14:25 08/28/22 14:25 Temperature Pulse Rate 101 H 103 H Respiratory Rate Blood Pressure 97/58 L Pulse Oximetry 96 95 Oxygen Delivery Method Oxygen Flow Rate Fraction of Inspired Oxygen 08/28/22 14:27 08/28/22 14:29 08/28/22 14:35 Temperature Pulse Rate 111 H Respiratory Rate Blood Pressure 116/67 118/73 Pulse Oximetry 97 Oxygen Delivery Method Oxygen Flow Rate Fraction of Inspired Oxygen 08/28/22 14:35 08/28/22 14:40 08/28/22 14:41 Temperature Pulse Rate 109 H 112 H Respiratory Rate Blood Pressure 121/63 Pulse Oximetry 99 99 Oxygen Delivery Method Oxygen Flow Rate Fraction of Inspired Oxygen 08/28/22 14:41 08/28/22 14:45 08/28/22 14:45 Temperature Pulse Rate 117 H 112 H Respiratory Rate Blood Pressure 113/52 L Pulse Oximetry 99 99 Oxygen Delivery Method Oxygen Flow Rate Fraction of Inspired Oxygen 08/28/22 14:50 08/28/22 14:50 08/28/22 14:55 Temperature Pulse Rate 113 H 112 H Respiratory Rate 24 23 Blood Pressure 123/68 Pulse Oximetry 98 97 Oxygen Delivery Method Oxygen Flow Rate Fraction of Inspired Oxygen 08/28/22 14:56 08/28/22 14:56 08/28/22 15:00 Temperature Pulse Rate 112 H Respiratory Rate 20 Blood Pressure 110/57 L 128/67 Pulse Oximetry 97 Oxygen Delivery Method Oxygen Flow Rate Fraction of Inspired Oxygen 08/28/22 15:00 08/28/22 15:07 08/28/22 14:26 Temperature Pulse Rate 104 H Respiratory Rate 16 Blood Pressure 129/70 Pulse Oximetry 97 Oxygen Delivery Method BiPAP Oxygen Flow Rate Fraction of Inspired Oxygen 35 08/28/22 15:05 08/28/22 15:05 08/28/22 15:10 Temperature Pulse Rate 104 H Respiratory Rate 17 Blood Pressure 117/66 115/63 Pulse Oximetry 96 Oxygen Delivery Method Oxygen Flow Rate Fraction of Inspired Oxygen 08/28/22 15:10 08/28/22 15:15 08/28/22 15:15 Temperature Pulse Rate 115 H 108 H Respiratory Rate 21 19 Blood Pressure 129/70 Pulse Oximetry 97 96 Oxygen Delivery Method Oxygen Flow Rate Fraction of Inspired Oxygen 08/28/22 15:20 08/28/22 15:20 08/28/22 15:25 Temperature Pulse Rate 101 H Respiratory Rate 17 Blood Pressure 110/62 112/62 Pulse Oximetry 95 Oxygen Delivery Method Oxygen Flow Rate Fraction of Inspired Oxygen 08/28/22 15:25 08/28/22 15:30 08/28/22 15:30 Temperature Pulse Rate 111 H 109 H Respiratory Rate 24 20 Blood Pressure 114/59 L Pulse Oximetry 95 95 Oxygen Delivery Method Oxygen Flow Rate Fraction of Inspired Oxygen 08/28/22 15:35 08/28/22 15:35 08/28/22 15:40 Temperature Pulse Rate 113 H 112 H Respiratory Rate 24 26 H Blood Pressure 118/66 Pulse Oximetry 95 95 Oxygen Delivery Method Oxygen Flow Rate Fraction of Inspired Oxygen 08/28/22 15:40 08/28/22 15:45 08/28/22 15:45 Temperature Pulse Rate 109 H Respiratory Rate 20 Blood Pressure 108/59 L 103/56 L Pulse Oximetry 94 Oxygen Delivery Method Oxygen Flow Rate Fraction of Inspired Oxygen 08/28/22 15:50 08/28/22 15:50 08/28/22 17:15 Temperature Pulse Rate 102 H Respiratory Rate 16 Blood Pressure 102/62 Pulse Oximetry 95 94 Oxygen Delivery Method Nasal Cannula Oxygen Flow Rate 3 Fraction of Inspired Oxygen 08/28/22 17:00 08/28/22 17:00 08/28/22 17:05 Temperature 97.9 F Pulse Rate 112 H Respiratory Rate 53 H Blood Pressure 115/64 110/61 Pulse Oximetry 94 94 Oxygen Delivery Method Oxygen Flow Rate 3 Fraction of Inspired Oxygen 08/28/22 17:05 08/28/22 17:10 08/28/22 17:10 Temperature Pulse Rate 108 H 110 H Respiratory Rate 33 H 34 H Blood Pressure 116/60 Pulse Oximetry 95 94 Oxygen Delivery Method Oxygen Flow Rate Fraction of Inspired Oxygen 08/28/22 17:15 08/28/22 17:20 08/28/22 17:20 Temperature Pulse Rate 111 H 111 H Respiratory Rate 38 H 45 H Blood Pressure 124/57 L Pulse Oximetry 94 95 Oxygen Delivery Method Oxygen Flow Rate Fraction of Inspired Oxygen 08/28/22 17:25 08/28/22 17:26 08/28/22 17:26 Temperature Pulse Rate 109 H 109 H Respiratory Rate 47 H 40 H Blood Pressure 117/59 L Pulse Oximetry 95 95 Oxygen Delivery Method Oxygen Flow Rate Fraction of Inspired Oxygen 08/28/22 17:30 08/28/22 17:30 08/28/22 17:35 Temperature Pulse Rate 106 H 116 H Respiratory Rate 39 H 57 H Blood Pressure 109/59 L Pulse Oximetry 95 94 Oxygen Delivery Method Oxygen Flow Rate Fraction of Inspired Oxygen 08/28/22 17:40 08/28/22 17:40 08/28/22 17:45 Temperature Pulse Rate 120 H Respiratory Rate 44 H Blood Pressure 117/66 126/64 Pulse Oximetry 94 Oxygen Delivery Method Oxygen Flow Rate Fraction of Inspired Oxygen 08/28/22 17:45 08/28/22 17:50 08/28/22 17:55 Temperature Pulse Rate 120 H 117 H 118 H Respiratory Rate 48 H 51 H 54 H Blood Pressure Pulse Oximetry 93 93 94 Oxygen Delivery Method Oxygen Flow Rate Fraction of Inspired Oxygen 08/28/22 17:56 08/28/22 17:56 08/28/22 18:00 Temperature Pulse Rate 119 H Respiratory Rate 61 H Blood Pressure 135/63 131/59 L Pulse Oximetry 94 Oxygen Delivery Method Oxygen Flow Rate Fraction of Inspired Oxygen 08/28/22 18:00 08/28/22 18:05 08/28/22 18:05 Temperature Pulse Rate 119 H 125 H Respiratory Rate 43 H 44 H Blood Pressure 132/63 Pulse Oximetry 95 93 Oxygen Delivery Method Oxygen Flow Rate Fraction of Inspired Oxygen 08/28/22 18:10 08/28/22 18:10 08/28/22 19:15 Temperature Pulse Rate 112 H Respiratory Rate 23 Blood Pressure 128/59 L 103/56 L Pulse Oximetry 93 Oxygen Delivery Method Oxygen Flow Rate Fraction of Inspired Oxygen 35 08/28/22 18:15 08/28/22 18:15 08/28/22 18:20 Temperature Pulse Rate 109 H Respiratory Rate 23 Blood Pressure 119/57 L 118/58 L Pulse Oximetry 94 Oxygen Delivery Method Oxygen Flow Rate Fraction of Inspired Oxygen 08/28/22 18:20 08/28/22 18:25 08/28/22 18:25 Temperature Pulse Rate 119 H 109 H Respiratory Rate 31 H 19 Blood Pressure 116/59 L Pulse Oximetry 95 94 Oxygen Delivery Method Oxygen Flow Rate Fraction of Inspired Oxygen 08/28/22 18:30 08/28/22 18:30 08/28/22 18:35 Temperature Pulse Rate 110 H Respiratory Rate 24 Blood Pressure 116/56 L 116/55 L Pulse Oximetry 92 Oxygen Delivery Method Oxygen Flow Rate Fraction of Inspired Oxygen 08/28/22 18:35 08/28/22 18:40 08/28/22 18:40 Temperature Pulse Rate 106 H 107 H Respiratory Rate 26 H 22 Blood Pressure 118/58 L Pulse Oximetry 93 93 Oxygen Delivery Method Oxygen Flow Rate Fraction of Inspired Oxygen 08/28/22 18:45 08/28/22 18:45 08/28/22 18:50 Temperature Pulse Rate 115 H Respiratory Rate 24 Blood Pressure 99/60 92/55 L Pulse Oximetry 93 Oxygen Delivery Method Oxygen Flow Rate Fraction of Inspired Oxygen 08/28/22 18:50 08/28/22 18:55 08/28/22 18:55 Temperature Pulse Rate 108 H 104 H Respiratory Rate 22 20 Blood Pressure 93/53 L Pulse Oximetry 95 95 Oxygen Delivery Method Oxygen Flow Rate Fraction of Inspired Oxygen 08/28/22 19:00 08/28/22 19:00 08/28/22 19:05 Temperature Pulse Rate 103 H Respiratory Rate 19 Blood Pressure 91/55 L 103/55 L Pulse Oximetry 95 Oxygen Delivery Method Oxygen Flow Rate Fraction of Inspired Oxygen 08/28/22 19:05 08/28/22 19:10 08/28/22 19:10 Temperature Pulse Rate 107 H 104 H Respiratory Rate 19 20 Blood Pressure 101/55 L Pulse Oximetry 95 94 Oxygen Delivery Method Oxygen Flow Rate Fraction of Inspired Oxygen 08/28/22 19:15 08/28/22 19:15 08/28/22 19:20 Temperature Pulse Rate 104 H Respiratory Rate 19 Blood Pressure 103/56 L 104/58 L Pulse Oximetry 94 Oxygen Delivery Method Oxygen Flow Rate Fraction of Inspired Oxygen 08/28/22 19:20 08/28/22 19:25 08/28/22 19:25 Temperature Pulse Rate 104 H 105 H Respiratory Rate 21 19 Blood Pressure 105/55 L Pulse Oximetry 94 94 Oxygen Delivery Method Oxygen Flow Rate Fraction of Inspired Oxygen 08/28/22 19:00 08/28/22 19:30 08/28/22 19:30 Temperature Pulse Rate 114 H Respiratory Rate 22 Blood Pressure 113/57 L Pulse Oximetry 94 Oxygen Delivery Method BiPAP Oxygen Flow Rate Fraction of Inspired Oxygen 08/28/22 19:35 08/28/22 19:35 08/28/22 19:40 Temperature Pulse Rate 109 H Respiratory Rate 19 Blood Pressure 109/57 L 99/53 L Pulse Oximetry 95 Oxygen Delivery Method Oxygen Flow Rate Fraction of Inspired Oxygen 08/28/22 19:40 08/28/22 19:45 08/28/22 19:45 Temperature Pulse Rate 107 H 105 H Respiratory Rate 19 18 Blood Pressure 97/52 L Pulse Oximetry 94 94 Oxygen Delivery Method Oxygen Flow Rate Fraction of Inspired Oxygen 08/28/22 19:50 08/28/22 19:55 08/28/22 20:00 Temperature Pulse Rate 105 H 104 H Respiratory Rate 18 17 Blood Pressure 105/55 L Pulse Oximetry 95 94 Oxygen Delivery Method Oxygen Flow Rate Fraction of Inspired Oxygen 08/28/22 20:00 08/28/22 20:05 08/28/22 20:10 Temperature Pulse Rate 104 H 104 H 113 H Respiratory Rate 19 17 22 Blood Pressure Pulse Oximetry 94 95 95 Oxygen Delivery Method Oxygen Flow Rate Fraction of Inspired Oxygen 08/28/22 20:15 08/28/22 20:20 08/28/22 20:25 Temperature Pulse Rate 104 H 110 H 109 H Respiratory Rate 18 18 21 Blood Pressure Pulse Oximetry 95 95 95 Oxygen Delivery Method Oxygen Flow Rate Fraction of Inspired Oxygen 08/28/22 20:30 Temperature Pulse Rate 104 H Respiratory Rate 17 Blood Pressure Pulse Oximetry 94 Oxygen Delivery Method Oxygen Flow Rate Fraction of Inspired Oxygen Fraction of Inspired Oxygen 35 SaO2/FiO2 Ratio 274 Oxygen Delivery Method BiPAP Oxygen Flow Rate 3 Narrative Exam Narrative: surrogate for exam is primary team Objective Labs Result Diagrams: 08/28/22 05:53 08/28/22 05:53 Labs: Laboratory Results - last 24 hr 08/27/22 08/27/22 08/27/22 21:45 21:46 23:23 WBC RBC Hgb Hct MCV MCH MCHC RDW Plt Count Neut % (Auto) Lymph % (Auto) [place] % (Auto) Eos % (Auto) Baso % (Auto) Neut # (Auto) Lymph # (Auto) [place] # (Auto) Eos # (Auto) Baso # (Auto) ABG pH 7.16 L* 7.20 L* ABG pCO2 103.5 H* 88.4 H* ABG pO2 87 82 ABG HCO3 37 H 35 H ABG Total CO2 40 H 37 H ABG O2 Saturation 92 L 92 L ABG Base Excess 8.0 H 6.0 H FiO2 35 35 Sodium Potassium Chloride Carbon Dioxide BUN Creatinine Estimated GFR BUN/Creatinine Ratio Glucose Calcium Magnesium Total Bilirubin AST ALT Alkaline Phosphatase Total Creatine Kinase 67 CK-MB (CK-2) TNP CK-MB (CK-2) Rel Index TNP Troponin I 0.174 H* Total Protein Albumin Globulin Albumin/Globulin Ratio Nasal Screen MRSA (PCR) 08/28/22 08/28/22 08/28/22 05:53 05:53 05:53 WBC 12.6 H RBC 4.90 Hgb 16.7 Hct 49.9 MCV 101.7 H MCH 34.0 MCHC 33.4 RDW 15.7 H Plt Count 247 Neut % (Auto) 93.5 H Lymph % (Auto) 3.5 L [place] % (Auto) 2.7 L Eos % (Auto) 0.1 L Baso % (Auto) 0.2 Neut # (Auto) 93678 H Lymph # (Auto) 400 L [place] # (Auto) 300 Eos # (Auto) 0 Baso # (Auto) 0 ABG pH ABG pCO2 ABG pO2 ABG HCO3 ABG Total CO2 ABG O2 Saturation ABG Base Excess FiO2 Sodium 128 L Potassium 3.8 Chloride 85 L Carbon Dioxide 31 BUN 37 H Creatinine 2.30 H Estimated GFR 32 L BUN/Creatinine Ratio 16.1 Glucose 157 H Calcium 9.5 Magnesium 1.3 L Total Bilirubin 0.7 AST 23 ALT 21 Alkaline Phosphatase 74 Total Creatine Kinase 49 L CK-MB (CK-2) TNP CK-MB (CK-2) Rel Index TNP Troponin I 0.128 H* Total Protein 7.4 Albumin 3.9 Globulin 3.5 Albumin/Globulin Ratio 1.1 Nasal Screen MRSA (PCR) 08/28/22 08/28/22 08/28/22 06:04 13:05 14:30 WBC RBC Hgb Hct MCV MCH MCHC RDW Plt Count Neut % (Auto) Lymph % (Auto) [place] % (Auto) Eos % (Auto) Baso % (Auto) Neut # (Auto) Lymph # (Auto) [place] # (Auto) Eos # (Auto) Baso # (Auto) ABG pH 7.29 L* 7.30 L ABG pCO2 72.8 H* 70.3 H* ABG pO2 81 83 ABG HCO3 35 H 35 H ABG Total CO2 37 H 37 H ABG O2 Saturation 94 L 94 L ABG Base Excess 8.0 H 8.0 H FiO2 35 35 Sodium Potassium Chloride Carbon Dioxide BUN Creatinine Estimated GFR BUN/Creatinine Ratio Glucose Calcium Magnesium Total Bilirubin AST ALT Alkaline Phosphatase Total Creatine Kinase CK-MB (CK-2) CK-MB (CK-2) Rel Index Troponin I Total Protein Albumin Globulin Albumin/Globulin Ratio Nasal Screen MRSA (PCR) Negative for mrsa Assessment & Plan Assessment & Plan narrative: Acute hypercapenic resp failure acute on chronic respiraotry acisosi AECOPD influenza A COVID 19 THANIA hyponatremia - ? paraneplastic effect continue bipap qhs - will need to use bipap qhs indefinitely steroid taper nebs prn bp control will need EBUS and IR guided biopsy of mass for histolgoy and staging trend bmp monitor UO dvt ppx gi ppx f/u cx cont empric abx goal neagtive balance Time Spent With Patient Critical Care time: I spent a total of [35] minutes of critical care time on this patient's care today; this time is exclusive of procedural time.
[2022-08-29] VITALS (96 sets, daily range): BP systolic 84–126; BP diastolic 50–63; PULSE 88–118; RESP 15–51; TEMP 29.3–37.1; O2SAT 90–98
[2022-08-29] MEDS: AZITHROMYCIN 500 MG in DEXTROSE 5% IN WATER 250 ML 250 MG IV (00:17)
[2022-08-29] MEDS: cefTRIAXone 1,000 MG in SODIUM CHLORIDE 0.9% 100 ML 200 MG IV (02:24)
--- NOTE | 2022-08-29 04:22 | PC.NURSE ---
Addendum entered by Carmen Arora R.N. 08/29/22 05:27: Attempting to call morning blood gas to hospitalist, message left on cellphone. Original Note: Pt. sleeping all night with bipap on, very compliant. Awakening usual time of day and switched to nasal cannula, for a break. Patient awake alert interactive with no sign of alcohol withdrawal.
[2022-08-29 04:42] LABS: Add Manual Diff / Slide Review NO; Alanine Aminotransferase 16 IU/L (<50); Albumin 3.3 g/dL (3.5-5.0); Alkaline Phosphatase 66 U/L (38-126); Aspartate Aminotransferase 22 IU/L (17-59); BUN Creatinine Ratio 20.3 (6-22); Basophils Absolute Auto 0 /uL (0-100); Basophils Percent Auto 0.1 % (0-2); Bilirubin Total 0.6 mg/dL (0.2-1.3); Blood Urea Nitrogen 59 mg/dL (9-20); Calcium 9.4 mg/dL (8.4-10.2); Carbon Dioxide 32 mmol/L (22-32); Chloride 85 mmol/L (98-107); Eosinophils Absolute Auto 0 /uL (0-450); Estimated Glomerular Filt Rate 24 mL/min (>60); Globulin 3.3 g/dL (1.7-4.1); Glucose 107 mg/dL (70-100); HEMOLYSIS < 15 (0-50); Hematocrit 45.1 % (41-53); Lymphocytes Absolute Auto 700 /uL (1100-4500); Lymphocytes Percent Auto 4.3 % (25-40); Magnesium 2.1 mg/dL (1.6-2.3); Mean Corpuscular HGB Conc 33.2 % (30-36); Mean Corpuscular Hemoglobin 33.9 PG (26-34); Mean Corpuscular Volume 102.1 fL (80-100); Monocytes Absolute Auto 1500 /uL (0-900); Monocytes Percent Auto 8.7 % (3-14); Neutrophils Absolute Auto 14900 /uL (1500-7000); Neutrophils Percent Auto 86.9 % (50-75); Platelet Count 291 X10^3/uL (150-400); Potassium 3.8 mmol/L (3.4-5.1); Red Blood Cell Count 4.41 X10^6/uL (4.5-5.9); Red Cell Distribution Width 15.7 % (11.6-14.8); Sodium 127 mmol/L (137-145); Total Protein 6.6 g/dL (6.3-8.2); White Blood Cell Count 17.2 X10^3/uL (4.5-11.0)
[2022-08-29 05:14] LABS: HCO3 ABG 36 mmol/L (22-26); PO2 ABG 69 mmHg (80-100); TCO2 ABG 38 mmol/L (21-31); pH ABG 7.34 (7.35-7.45)
[2022-08-29 05:15] LABS: Fractionated Inspired Oxygen 32; Oxygen Saturation ABG 92 % (95-100)
[2022-08-29 06:55] LABS: PCO2 ABG 66.7 mmHg (35-45)
[2022-08-29] MEDS: THIAMINE 100 MG TABLET PO (09:25)
[2022-08-29] MEDS: BARICITINIB 2 MG TABLET PO (09:25)
[2022-08-29] MEDS: FOLIC ACID 1 MG TABLET PO (09:25)
[2022-08-29] MEDS: MULTIVITAMIN 1 TABLET 1 TAB PO (09:25)
[2022-08-29] MEDS: DEXAMETHASONE 10 MG/ML VIAL 6 MG IV (09:26)
[2022-08-29] MEDS: ENOXAPARIN 40 MG/0.4 ML SYRINGE SUBCUT (09:26)
[2022-08-29] MEDS: ALBUTEROL/IPRATROPIUM 3 ML AMPUL INH ×3 (10:50→19:03)
--- NOTE | 2022-08-29 12:09 | CM.DANOTE ---
Initial Discharge Assessment Note: Case reviewed, spoke with patient by cell phone in his room due to Covid+, introduced self/role. Payer: [employer] and self pay [facility] 56 [facility] with respiratory failure, SOB, COVID+, flu A. Daily smoker, CIWA protocol. Switched to floor care today per nurse. On 5 LPM via nasal canula. 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 He is and lives with spouse Anita who will be in later he states. He states he owns two homes, one in [place] and one in [place] [facility] [place] [facility]. He is independent and drives. Plan: When medically cleared, return home under care of spouse. KARLA Discharge Planning/Care Management CM Discharge Assessment Start: 08/29/22 12:08 Freq: Status: Active Protocol: Document 08/29/22 12:09 (Rec: 08/29/22 12:09 [id number]) Discharge Planning Assessment Assigned Protective Officer Germania Prieto RN/DCP Advance Directives? No History Provided By Patient Prior Living Arrangements House Household Members spouse Type of transporation used prior to Drives own vehicle admit Independent with ADL's Yes Is patient alert and oriented? Yes Needs Assistance With Home Chores / Shopping Caregiver for Another No Barriers to Discharge No Whiteboard Updated in Patient Room with No name and ext. # of Protective Officer Review Status In Process Next Review Type Continued Stay Review
--- NOTE | 2022-08-29 17:06 | PM.PN.1 ---
Subjective Subjective Date Patient Seen: 08/29/22 Time Patient Seen: 08:00 Interval history: He is short of breath still, but improved compared to yesterday. Exam Vital Signs (past 8 hours): - 08/29/22 09:24 08/29/22 11:07 08/29/22 13:00 Temperature 98.5 F Pulse Rate 106 H 106 H Respiratory Rate 20 16 Blood Pressure 120/63 Pulse Oximetry 94 93 93 Oxygen Delivery Method Nasal Cannula Nasal Cannula Oxygen Flow Rate 5 5 3.5 Fraction of Inspired Oxygen 08/29/22 13:24 08/29/22 16:34 Temperature Pulse Rate 100 H Respiratory Rate 20 Blood Pressure Pulse Oximetry 94 94 Oxygen Delivery Method Nasal Cannula Nasal Cannula Oxygen Flow Rate 5 5 Fraction of Inspired Oxygen 40 Fraction of Inspired Oxygen 40 SaO2/FiO2 Ratio 235 Oxygen Delivery Method Nasal Cannula Oxygen Flow Rate 5 Narrative Exam Narrative: GEN: no acute distress CV: tachycardic PULM: coarse breath sounds and scattered wheezes Objective Labs Result Diagrams: 08/29/22 04:10 08/29/22 04:10 Labs: Laboratory Results - last 24 hr 08/29/22 08/29/22 08/29/22 04:10 04:10 04:33 WBC 17.2 H RBC 4.41 L Hgb 15.0 Hct 45.1 MCV 102.1 H MCH 33.9 MCHC 33.2 RDW 15.7 H Plt Count 291 Neut % (Auto) 86.9 H Lymph % (Auto) 4.3 L [place] % (Auto) 8.7 Eos % (Auto) 0.0 L Baso % (Auto) 0.1 Neut # (Auto) 52932 H Lymph # (Auto) 700 L [place] # (Auto) 1500 H Eos # (Auto) 0 Baso # (Auto) 0 ABG pH 7.34 L ABG pCO2 66.7 H* ABG pO2 69 L ABG HCO3 36 H ABG Total CO2 38 H ABG O2 Saturation 92 L ABG Base Excess 10.0 H FiO2 32 Sodium 127 L Potassium 3.8 Chloride 85 L Carbon Dioxide 32 BUN 59 H Creatinine 2.90 H Estimated GFR 24 L BUN/Creatinine Ratio 20.3 Glucose 107 H Calcium 9.4 Magnesium 2.1 Total Bilirubin 0.6 AST 22 ALT 16 Alkaline Phosphatase 66 Total Protein 6.6 Albumin 3.3 L Globulin 3.3 Albumin/Globulin Ratio 1.0 PFSH Medical History COPD (chronic obstructive pulmonary disease) Social History household members: spouse Smoking Status: Current every day smoker alcohol intake: current Assessment & Plan Assessment & Plan narrative: 1. Acute hypercarbic respiratory failure, secondary to COPD exacerbation and COVID pneumonia -initially requiring BIPAP, off BIPAP on 08/29, down to nasal cannula oxygen -pCO2 initially very elevated, abg consistent with chronic co2 retention -started treatment with IV antibiotics for pneumonia, dexamethasone for COVID, nebs for COPD -with elevated creatinine stop remdesivir and baricitinib 2. Elevated creatinine -baseline unknown -suspect THANIA on CKD -continue to trend daily 3. Alcohol depedendence -CIWA protocol as needed -ordered for MVI, thiamine, folate 4. HTN -hold home medications for now 5. Lung nodule -follow up as outpatient 5. Flu positive -tamiflu for 5 days Time Spent With Patient Critical Care time: I spent a total of [] minutes of critical care time on this patient's care today; this time is exclusive of procedural time. Quality VTE Deep Vein Thrombosis/Pulmonary Embolism Present on Admission: No
[2022-08-30] VITALS (12 sets, daily range): BP systolic 114–158; BP diastolic 59–67; PULSE 80–104; RESP 18–21; TEMP 36.2–37.2; O2SAT 90–99
[2022-08-30] MEDS: AZITHROMYCIN 500 MG in DEXTROSE 5% IN WATER 250 ML 250 MG IV (00:34)
[2022-08-30] MEDS: SODIUM CHLORIDE 0.9% FLUSH 10 ML IV ×2 (00:35→09:05)
--- NOTE | 2022-08-30 01:29 | PC.NURSE ---
Patient is alert and oriented but [place]; speech is mumbled making it difficult to understand at times. Breath sounds diminished with scattered expiratory rhonchi. Reports chronic SOB which is exacerbated by current diagnoses. Reports intermittent cough productive of small amounts of berrios sputum. On oxygen at 5L/min with sat of 90% and desats to upper 80's with conversation so increased oxygen to 6L/min. HRR. Denies nausea. BT present and abdomen is soft; had BM 08/29. Indwelling catheter is patent; urine is clear dilcia. Is able to move himself in bed. Current activity level ordered is bedrest so gait not assessed; reports generalized weakness. Has chronic generalized pain but declines intervention stating he is used to the pain and is tolerable. Wearing bilateral calf SCD's. Fall risk score is high and bed alarm is activated. On covid isolation due to being positive for both covid and influenza A. CIWA score is 0.
[2022-08-30] MEDS: cefTRIAXone 1,000 MG in SODIUM CHLORIDE 0.9% 100 ML 200 MG IV (02:39)
[2022-08-30] MEDS: BENZOCAINE/MENTHOL 1 LOZ PKT 1 EACH PO ×2 (02:40→17:15)
[2022-08-30 05:51] LABS: Add Manual Diff / Slide Review NO; Basophils Absolute Auto 0 /uL (0-100); Basophils Percent Auto 0.1 % (0-2); Eosinophils Absolute Auto 0 /uL (0-450); Hematocrit 44.5 % (41-53); Hemoglobin 14.9 g/dL (13.5-17.5); Lymphocytes Absolute Auto 800 /uL (1100-4500); Mean Corpuscular HGB Conc 33.5 % (30-36); Mean Corpuscular Volume 101.7 fL (80-100); Monocytes Absolute Auto 900 /uL (0-900); Monocytes Percent Auto 8.3 % (3-14); Neutrophils Absolute Auto 9400 /uL (1500-7000); Neutrophils Percent Auto 84.6 % (50-75); Platelet Count 242 X10^3/uL (150-400); Red Blood Cell Count 4.37 X10^6/uL (4.5-5.9); Red Cell Distribution Width 15.1 % (11.6-14.8); White Blood Cell Count 11.1 X10^3/uL (4.5-11.0)
[2022-08-30 06:03] LABS: Alanine Aminotransferase 18 IU/L (<50); Albumin 3.3 g/dL (3.5-5.0); Alkaline Phosphatase 66 U/L (38-126); Aspartate Aminotransferase 24 IU/L (17-59); BUN Creatinine Ratio 22.6 (6-22); Bilirubin Total 0.6 mg/dL (0.2-1.3); Blood Urea Nitrogen 76 mg/dL (9-20); Calcium 9.2 mg/dL (8.4-10.2); Carbon Dioxide 31 mmol/L (22-32); Chloride 80 mmol/L (98-107); Estimated Glomerular Filt Rate 21 mL/min (>60); Globulin 3.3 g/dL (1.7-4.1); Glucose 100 mg/dL (70-100); HEMOLYSIS < 15 (0-50); Magnesium 2.2 mg/dL (1.6-2.3); Potassium 3.9 mmol/L (3.4-5.1); Sodium 125 mmol/L (137-145); Total Protein 6.6 g/dL (6.3-8.2)
--- NOTE | 2022-08-30 07:55 | DI.US.S_ITS ---
PROCEDURE: US ABDOMEN COMPLETE INDICATIONS: RENAL FAILURE TECHNIQUE: Real-time scanning was performed of the abdominal and retroperitoneal organs, with image documentation. COMPARISON: [facility], CT, CT ANGIO CHEST PE PROTOCOL, 08/28/2022, 12:50. FINDINGS: Liver: The liver demonstrates normal size. The liver demonstrates generalized moderately increased echogenicity. This decreases ultrasound sensitivity for detection of hepatic masses. There is a hyperechoic lesion seen within the right anterior liver that measures up to 2.8 cm. The main portal vein demonstrates normal appearing, hepatopetal flow. The main portal vein is mildly prominent at 16 mm. Gallbladder: Mobile sludge can be seen. The gallbladder wall is thickened at 5 mm. Pericholecystic fluid is seen. The sonographic Walls sign is positive. Biliary ducts: Intrahepatic bile ducts are non-dilated. Extrahepatic bile duct caliber measures 5 mm. Normal is 6-7 mm or less in diameter, or 10 mm or less post-cholecystectomy. Pancreas: Visualized portions of the pancreas are sonographically normal. Spleen: Spleen is normal in size and homogeneous in echotexture. Kidneys: Kidneys are normal in size and echotexture. Right kidney measures 11.2 cm long; left kidney measures 13.3 cm long. No hydronephrosis or nephrolithiasis. No solid masses. Aorta: The proximal aorta is within normal limits. The mid and distal aorta are not well seen. Iliacs: Not well seen. IVC: Intrahepatic inferior vena cava is patent. Miscellaneous: No free abdominal fluid. A Melgoza catheter is seen, which decompresses the bladder. IMPRESSION: Normal appearing kidneys by ultrasound. Suspicion for cholecystitis, with mobile sludge, pericholecystic fluid, a thickened gallbladder wall, and a positive sonographic Walls sign. Fatty liver infiltration. There is a hyperechoic right liver lesion seen, which may represent focal fatty infiltration. Attention should be paid to this focus on any future follow-up studies. Mildly increased size of the main portal vein. Please consider portal venous hypertension. Dictated by: Michele Cabral M.D. on 08/30/2022 at 10:24 Approved by: Michele Cabral M.D. on 08/30/2022 at 10:28
[2022-08-30] MEDS: SODIUM CHLORIDE 0.9% 500 ML 1000 ML IV (09:00)
[2022-08-30] MEDS: SODIUM CHLORIDE 0.9% 1,000 ML 84 ML IV ×2 (09:01→17:14)
[2022-08-30] MEDS: MULTIVITAMIN 1 TABLET 1 TAB PO (09:01)
[2022-08-30] MEDS: FOLIC ACID 1 MG TABLET PO (09:01)
[2022-08-30] MEDS: DEXAMETHASONE 10 MG/ML VIAL 6 MG IV (09:02)
[2022-08-30] MEDS: THIAMINE 100 MG TABLET PO (09:02)
[2022-08-30] MEDS: ENOXAPARIN 30 MG/0.3 ML SYRINGE SUBCUT (09:05)
[2022-08-30] MEDS: ALBUTEROL/IPRATROPIUM 3 ML AMPUL INH ×2 (14:58→20:07)
[2022-08-30] MEDS: ACETAMINOPHEN 325 MG TABLET 650 MG PO (15:13)
[2022-08-30] MEDS: CEFEPIME 1 GM in SODIUM CHLORIDE 0.9% 100 ML IV (15:14)
--- NOTE | 2022-08-30 15:52 | PM.CN ---
History of Present Illness Consult details Date Patient Seen: 08/30/22 Time Patient Seen: 15:53 Chief complaint: SOB Reason for consult: acute cholecystitis in the face of acute renal failure, pneumonia, +Covid Requesting provider: Johnathan Nava Narrative: Pain all over from coughing. Radiographic signs of acute cholecystitis with normal LFT's and a WBC responding to antibiotics used for pneumonia. Meds Home Medications and Allergies Home Medications Medication Instructions Recorded Confirmed Type apixaban 5 mg tablet (Eliquis) 5 mg PO 1XD 08/28/22 08/28/22 History hydrochlorothiazide 25 mg tablet 25 mg PO 1XD 08/28/22 08/28/22 History losartan 100 mg tablet 100 mg PO 1XD 08/28/22 08/28/22 History Allergies Allergy/AdvReac Type Severity Reaction Status Date / Time No Known Drug Allergies Allergy Verified 08/27/22 19:12 Review of Systems Review of Systems Narrative: RUQ pain indistinquishable from total abdominal pain related to coughing. ROS: Yes All systems reviewed with the patient and are negative except as otherwise documented Exam Vital Signs (past 8 hours): - 08/30/22 08:00 08/30/22 10:04 08/30/22 09:30 Temperature 97.2 F L 97.2 F L Pulse Rate 101 H Respiratory Rate 20 Blood Pressure 127/60 Pulse Oximetry 90 L Oxygen Delivery Method Oxygen Flow Rate 6 Fraction of Inspired Oxygen 08/30/22 12:00 08/30/22 14:59 Temperature 97.2 F L Pulse Rate 101 H 80 Respiratory Rate 21 20 Blood Pressure 158/67 H Pulse Oximetry 92 93 Oxygen Delivery Method Nasal Cannula Oxygen Flow Rate 6 5 Fraction of Inspired Oxygen 40 Fraction of Inspired Oxygen 40 SaO2/FiO2 Ratio 232 Oxygen Delivery Method Nasal Cannula Oxygen Flow Rate 5 Const General: cooperative and ill appearing Nutritional Appearance: well nourished Orientation: oriented x3 [facility] Head: normocephalic and atraumatic Eyes General: appearance normal, both eyes and all related structures Sclera: sclerae normal Neck Neck: trachea midline Chest Chest: normal inspection of the chest Resp Effort & Inspection: cough, decreased respiratory effort and labored Cardio Rate: tachycardic Rhythm: regular rhythm GI Palpation: soft Other: generalized abdominal pain. no acute abdomen Skin General: dry skin Neuro General: patient alert, patient awake and patient oriented x3 Cognition: normal cognition Psych Appearance: grossly normal Mental Status: mental status grossly normal Affect: normal affect Judgment: judgment good Other: decreased hearing bilateral Objective Labs Result Diagrams: 08/30/22 04:35 08/30/22 04:35 Labs: Laboratory Results - last 24 hr 08/30/22 08/30/22 04:35 04:35 WBC 11.1 H RBC 4.37 L Hgb 14.9 Hct 44.5 MCV 101.7 H MCH 34.0 MCHC 33.5 RDW 15.1 H Plt Count 242 Neut % (Auto) 84.6 H Lymph % (Auto) 7.0 L [place] % (Auto) 8.3 Eos % (Auto) 0.0 L Baso % (Auto) 0.1 Neut # (Auto) 9400 H Lymph # (Auto) 800 L [place] # (Auto) 900 Eos # (Auto) 0 Baso # (Auto) 0 Sodium 125 L Potassium 3.9 Chloride 80 L Carbon Dioxide 31 BUN 76 H Creatinine 3.36 H Estimated GFR 21 L BUN/Creatinine Ratio 22.6 H Glucose 100 Calcium 9.2 Magnesium 2.2 Total Bilirubin 0.6 AST 24 ALT 18 Alkaline Phosphatase 66 Total Protein 6.6 Albumin 3.3 L Globulin 3.3 Albumin/Globulin Ratio 1.0 PFSH Medical History COPD (chronic obstructive pulmonary disease) Social History household members: spouse Tobacco & Substance Use Smoking Status: Current every day smoker alcohol intake: current Assessment & Plan Assessment & Plan narrative: Radiographic signs of acute cholecystitis w/o LFT's changes. Critical illness of Covid and influenza A with acute renal failure clouding the picture Plan: Medical management, follow LFT's and clinical. NO large obstructing stones in gallbladder that would not respond to medical management. COVID-19 COVID-19 status: Positive Time Spent With Patient Time with patient: less than 30 minutes Critical Care time: I spent a total of [] minutes of critical care time on this patient's care today; this time is exclusive of procedural time.
[2022-08-30 16:46] LABS: Creatinine Urine Random 57.9 mg/dL; Sodium Urine Random 8 mmol/L (30-90)
--- NOTE | 2022-08-30 17:40 | P.PN_ITS ---
Subjective Subjective Date Patient Seen: 08/30/22 Time Patient Seen: 08:00 Interval history: He has generalized pain, not specific to the abdomen. He did have worsening creatinine. Noted on abdominal ultrasound concern for possible cholecystitis on imaging. His breathing is still affected and still short of breath, not worsened or improved today. Exam Vital Signs (past 8 hours): - 08/30/22 10:04 08/30/22 12:00 08/30/22 14:59 Temperature 97.2 F L 97.2 F L Pulse Rate 101 H 80 Respiratory Rate 21 20 Blood Pressure 158/67 H Pulse Oximetry 92 93 Oxygen Delivery Method Nasal Cannula Oxygen Flow Rate 6 5 Fraction of Inspired Oxygen 40 08/30/22 17:00 Temperature 97.6 F Pulse Rate 92 H Respiratory Rate 21 Blood Pressure 116/59 L Pulse Oximetry 99 Oxygen Delivery Method Oxygen Flow Rate 6 Fraction of Inspired Oxygen Fraction of Inspired Oxygen 40 SaO2/FiO2 Ratio 232 Oxygen Delivery Method Nasal Cannula Oxygen Flow Rate 6 Narrative Exam Narrative: GEN: no acute distress CV: tachycardic PULM: coarse breath sounds and scattered wheezes ABD: soft, nontender Objective Labs Result Diagrams: 08/30/22 04:35 08/30/22 04:35 Labs: Laboratory Results - last 24 hr 08/30/22 08/30/22 08/30/22 04:35 04:35 15:30 WBC 11.1 H RBC 4.37 L Hgb 14.9 Hct 44.5 MCV 101.7 H MCH 34.0 MCHC 33.5 RDW 15.1 H Plt Count 242 Neut % (Auto) 84.6 H Lymph % (Auto) 7.0 L [place] % (Auto) 8.3 Eos % (Auto) 0.0 L Baso % (Auto) 0.1 Neut # (Auto) 9400 H Lymph # (Auto) 800 L [place] # (Auto) 900 Eos # (Auto) 0 Baso # (Auto) 0 Sodium 125 L Potassium 3.9 Chloride 80 L Carbon Dioxide 31 BUN 76 H Creatinine 3.36 H Estimated GFR 21 L BUN/Creatinine Ratio 22.6 H Glucose 100 Calcium 9.2 Magnesium 2.2 Total Bilirubin 0.6 AST 24 ALT 18 Alkaline Phosphatase 66 Total Protein 6.6 Albumin 3.3 L Globulin 3.3 Albumin/Globulin Ratio 1.0 Ur Random Sodium 8 L Urine Creatinine 57.9 [facility] Medical History COPD (chronic obstructive pulmonary disease) Social History household members: spouse Smoking Status: Current every day smoker alcohol intake: current Assessment & Plan Assessment & Plan narrative: 1. Acute hypercarbic respiratory failure, secondary to COPD exacerbation and COVID pneumonia -initially requiring BIPAP, off BIPAP on 08/29, down to nasal cannula oxygen -pCO2 initially very elevated, abg consistent with chronic co2 retention -started treatment with IV antibiotics for pneumonia, dexamethasone for COVID, nebs for COPD -with elevated creatinine stop remdesivir and baricitinib 2. THANIA -baseline unknown -suspect THANIA on CKD -continue to trend daily -abdominal ultrasound showed no evidence of obstruction -urine lytes consistent with hypovolemia, ordered IV fluids 3. Hyponatremia -suspect secondary to hypovolemia -follow up osms -ordered IV fluids, recheck sodium in morning 4. Acute cholecystitis -appreciate surgical consult, currently patient with no obstructing stone and benign belly, trial antibiotics management 5. Alcohol depedendence -CIWA protocol as needed -ordered for MVI, thiamine, folate 6. HTN -hold home medications for now 7. Lung nodule -follow up as outpatient 8. Flu positive -tamiflu for 5 days Time Spent With Patient Critical Care time: I spent a total of [] minutes of critical care time on this patient's care today; this time is exclusive of procedural time. Quality VTE Deep Vein Thrombosis/Pulmonary Embolism Present on Admission: No
[2022-08-30] MEDS: HYDROCODONE/ACET 5/325 TABLET 1 TAB PO (21:34)
--- NOTE | 2022-08-30 22:40 | PC.NURSE ---
Patient is alert and oriented. Breath sounds diminished throughout but CTA with sat of 94% on oxygen at 5L/min per NC. Continues to desat with conversation but able to speak in complete sentences. States he is SOB which is chronic but worse than his normal. HRR. Denies nausea. BT present and passing flatus. Indwelling catheter is patent; urine is clear, yellow. Able to turn himself in bed. Gait not assessed as ordered activity level is bedrest; does report generalized weakness and chronic generalized pain. Agreeable to trying stronger pain medication so Dez SEPULVEDA, contacted and order received for Vicodin. Is wearing bilateral calf SCD's. Fall risk score is moderate and bed alarm is activated. Remains on covid isolation.
[2022-08-31] VITALS (10 sets, daily range): BP systolic 136–149; BP diastolic 62–69; PULSE 88–101; RESP 18–22; TEMP 36.3–36.9; O2SAT 93–97
[2022-08-31 05:00] LABS: Hematocrit 45.3 % (41-53); Hemoglobin 14.9 g/dL (13.5-17.5); Mean Corpuscular HGB Conc 32.9 % (30-36); Mean Corpuscular Hemoglobin 34.1 PG (26-34); Mean Corpuscular Volume 103.6 fL (80-100); Platelet Count 262 X10^3/uL (150-400); Red Blood Cell Count 4.37 X10^6/uL (4.5-5.9); Red Cell Distribution Width 15.4 % (11.6-14.8); White Blood Cell Count 8.8 X10^3/uL (4.5-11.0)
[2022-08-31 05:01] LABS: Alanine Aminotransferase 21 IU/L (<50); Albumin 3.2 g/dL (3.5-5.0); Alkaline Phosphatase 59 U/L (38-126); Aspartate Aminotransferase 26 IU/L (17-59); Bilirubin Total 0.4 mg/dL (0.2-1.3); Blood Urea Nitrogen 78 mg/dL (9-20); Calcium 9.5 mg/dL (8.4-10.2); Carbon Dioxide 32 mmol/L (22-32); Chloride 89 mmol/L (98-107); Estimated Glomerular Filt Rate 27 mL/min (>60); Globulin 3.2 g/dL (1.7-4.1); Glucose 101 mg/dL (70-100); HEMOLYSIS < 15 (0-50); Potassium 4.4 mmol/L (3.4-5.1); Sodium 129 mmol/L (137-145); Total Protein 6.4 g/dL (6.3-8.2)
[2022-08-31] MEDS: SODIUM CHLORIDE 0.9% 1,000 ML 84 ML IV ×2 (05:35→18:27)
[2022-08-31] MEDS: ALBUTEROL/IPRATROPIUM 3 ML AMPUL INH ×3 (07:57→19:41)
[2022-08-31] MEDS: MULTIVITAMIN 1 TABLET 1 TAB PO (08:51)
[2022-08-31] MEDS: FOLIC ACID 1 MG TABLET PO (08:51)
[2022-08-31] MEDS: ENOXAPARIN 30 MG/0.3 ML SYRINGE SUBCUT (08:51)
[2022-08-31] MEDS: THIAMINE 100 MG TABLET PO (08:51)
[2022-08-31] MEDS: DEXAMETHASONE 10 MG/ML VIAL 6 MG IV (08:52)
[2022-08-31] MEDS: SODIUM CHLORIDE 0.9% FLUSH 10 ML IV ×2 (08:52→21:08)
--- NOTE | 2022-08-31 10:54 | PM.PN.1 ---
Subjective Subjective Date Patient Seen: 08/31/22 Time Patient Seen: 10:54 Interval history: Remains challenged respiratory. No changes in abdomen. Exam Vital Signs (past 8 hours): - 08/31/22 05:48 08/31/22 05:48 08/31/22 08:00 Temperature 97.6 F Pulse Rate 92 H 88 Respiratory Rate 20 22 Blood Pressure 140/65 136/62 Pulse Oximetry 96 95 94 Oxygen Delivery Method Nasal Cannula Oxygen Flow Rate 4 4 4 Fraction of Inspired Oxygen 40 SaO2/FiO2 Ratio 237 Oxygen Delivery Method Nasal Cannula Oxygen Flow Rate 4 Narrative Exam Narrative: No acute abdomen. Hungry. Continued cough Const General: ill appearing Objective Labs Result Diagrams: 08/31/22 03:27 08/31/22 03:27 Labs: Laboratory Results - last 24 hr 08/30/22 08/31/22 08/31/22 15:30 03:27 03:27 WBC 8.8 RBC 4.37 L Hgb 14.9 Hct 45.3 MCV 103.6 H MCH 34.1 H MCHC 32.9 RDW 15.4 H Plt Count 262 Sodium 129 L Potassium 4.4 Chloride 89 L Carbon Dioxide 32 BUN 78 H Creatinine 2.69 H Estimated GFR 27 L BUN/Creatinine Ratio 29.0 H Glucose 101 H Calcium 9.5 Total Bilirubin 0.4 AST 26 ALT 21 Alkaline Phosphatase 59 Total Protein 6.4 Albumin 3.2 L Globulin 3.2 Albumin/Globulin Ratio 1.0 Ur Random Sodium 8 L Urine Creatinine 57.9 PFSH Medical History COPD (chronic obstructive pulmonary disease) Social History household members: spouse Smoking Status: Current every day smoker alcohol intake: current Assessment & Plan Assessment & Plan narrative: No change in LFT's or clinical condition improved WBC and renal labs. Plan: continue medical management. COVID-19 COVID-19 status: Positive Time Spent With Patient Time with patient: less than 30 minutes Critical Care time: I spent a total of [] minutes of critical care time on this patient's care today; this time is exclusive of procedural time. Quality VTE Deep Vein Thrombosis/Pulmonary Embolism Present on Admission: No
--- NOTE | 2022-08-31 11:02 | PC.NURSE ---
Patients breath sounds with some wheezing throughout. He has not coughed and is tolerating his diet well. Melgoza has put out 900cc of yellow urine. Resting comfortably ad iv infusing at 84cc/hr
--- NOTE | 2022-08-31 12:27 | CM.DPC ---
DCP Cont: Pt discussed in AM rounds. Per MD, pt still on O2 and anticipate home O2 upon discharge. Pt has improved labs. Pt to continue with medical management per Dr. Lee. Anticipate discharge home when ready with home O2 eval. Daphnie Rowell RN/DCP
[2022-08-31] MEDS: CEFEPIME 1 GM in SODIUM CHLORIDE 0.9% 100 ML IV (15:31)
--- NOTE | 2022-08-31 15:43 | P.PN_ITS ---
Subjective Subjective Interval history: 56-year-old gentleman with COPD, alcohol dependence, nicotine dependence, and suspected congestive heart failure who was admitted with acute hypoxic respiratory failure, COVID pneumonia, influenza a, and possible superimposed bacterial pneumonia. Patient also has abdominal pain and has imaging evidence concerning for possible cholecystitis with mobile sludge, pericholecystic fluid, thickened gallbladder wall and positive Walls sign. General surgery has consulted and recommended medical management for now given his respiratory failure. Patient reports that he continues to feel short of breath. He does have some difficulty recalling how he felt yesterday. He states he feels about the same this afternoon as he did this morning. He denies any nausea. He continues to have diffuse abdominal tenderness. expresses some concern that he had some hallucinations earlier today. She reports he told her he thought there were people standing over him. Currently he denies any hallucinations. Last alcohol was approximately 6 days prior to admission. She is not noticed any tremors or other signs of withdrawal symptoms. Exam Vital Signs (past 8 hours): - 08/31/22 08:00 08/31/22 10:00 08/31/22 12:00 Temperature 97.8 F Pulse Rate 88 98 H Respiratory Rate 22 22 Blood Pressure 136/62 141/69 H Pulse Oximetry 94 96 Oxygen Delivery Method Room Air Oxygen Flow Rate 4 4 08/31/22 14:14 Temperature Pulse Rate 96 H Respiratory Rate 18 Blood Pressure Pulse Oximetry 95 Oxygen Delivery Method Nasal Cannula Oxygen Flow Rate 4 Fraction of Inspired Oxygen 40 SaO2/FiO2 Ratio 237 Oxygen Delivery Method Nasal Cannula Oxygen Flow Rate 4 Narrative Exam Narrative: GEN: Alert and oriented x 2, NAD HEENT:NC, Face symmetric CHEST: Respiratory excursions symmetric, bibasilar crackles, otherwise CTAB CV: RRR, no M/R/G ABD: Soft, moderately diffusely tender, nondistended, BT present in all 4 quadrants, no organomegaly or masses appreciated EXTR: warm, well perfused, no C/C/E SKIN: warm and dry, no rash NEURO: Alert and oriented x 2, nonfocal Objective Labs Result Diagrams: 08/31/22 03:27 08/31/22 03:27 Labs: Laboratory Results - last 24 hr 08/30/22 08/31/22 08/31/22 15:30 03:27 03:27 WBC 8.8 RBC 4.37 L Hgb 14.9 Hct 45.3 MCV 103.6 H MCH 34.1 H MCHC 32.9 RDW 15.4 H Plt Count 262 Sodium 129 L Potassium 4.4 Chloride 89 L Carbon Dioxide 32 BUN 78 H Creatinine 2.69 H Estimated GFR 27 L BUN/Creatinine Ratio 29.0 H Glucose 101 H Calcium 9.5 Total Bilirubin 0.4 AST 26 ALT 21 Alkaline Phosphatase 59 Total Protein 6.4 Albumin 3.2 L Globulin 3.2 Albumin/Globulin Ratio 1.0 Ur Random Sodium 8 L Urine Creatinine 57.9 [facility] Medical History COPD (chronic obstructive pulmonary disease) Social History household members: spouse Smoking Status: Current every day smoker alcohol intake: current Assessment & Plan Assessment & Plan narrative: 1. Acute hypoxic respiratory failure Overall improving. Initially BiPAP dependent., then required 6 L. Currently down to 4 liters/minute. Continue weaning as able. Etiology is likely combination of COVID pneumonia, influenza a, and underlying COPD. Continue IV cefepime, dexamethasone, and Tamiflu. 2. COVID pneumonia Currently receiving dexamethasone 6 mg IV daily. Continue supportive care. 3. Influenza a Presently receiving Tamiflu 75 mg twice daily. Continue precautions. 4. Suspected congestive heart failure Echocardiogram done earlier this admission revealed concentric LVH, EF of 65- 70%, moderately enlarged right ventricle with mildly reduced function. Hypokinetic apex. Possible acute cor pulmonale. CT pulmonary angiogram was performed without evidence of pulmonary embolism. 5. Alcohol dependence Of note, on his abdominal ultrasound there was an area of the liver that was hyperechoic, possibly focal fatty infiltration. Attention needs to be paid to that area on future imaging studies. 6. Possible cholecystitis Appreciate consult per General surgery. For now, will continue supportive care. 7. Acute metabolic encephalopathy Patient purportedly had some visual hallucinations today. He is 6 days out from his last drink. Unlikely to be alcohol withdrawal at this time. Suspect it is multifactorial from his COVID and influenza A. 8. Left lung base lobulated masslike opacity measuring 1.5 x 1.6 x 1.4 cm with adjacent nodules. Suspicious for solid mass per imaging. Will likely need outpatient follow-up and close evaluation for resolution. 9. Macrocytosis No evidence of anemia. Likely has an elevated MCV related to his alcohol use. 10. Hyponatremia mild at 129 today. This is improving from 125 yesterday. 11. THANIA Creatinine up to 3.36 yesterday. It is improved to 2.69 today. We will continue to monitor. Code status Full Prophylaxis On Lovenox Disposition Acute inpatient. Time Spent With Patient Critical Care time: I spent a total of [] minutes of critical care time on this patient's care t julien; this time is exclusive of procedural time. Quality VTE Deep Vein Thrombosis/Pulmonary Embolism Present on Admission: No
[2022-08-31] MEDS: OSELTAMIVIR 75 MG CAPSULE PO (21:07)
[2022-09-01] VITALS (14 sets, daily range): BP systolic 129–183; BP diastolic 61–91; PULSE 83–106; RESP 15–22; TEMP 36.1–36.6; O2SAT 91–97
[2022-09-01 04:27] LABS: Add Manual Diff / Slide Review NO; Basophils Absolute Auto 0 /uL (0-100); Basophils Percent Auto 0.2 % (0-2); Eosinophils Absolute Auto 0 /uL (0-450); Eosinophils Percent Auto 0.2 % (2-4); Hematocrit 44.6 % (41-53); Hemoglobin 14.8 g/dL (13.5-17.5); Lymphocytes Absolute Auto 900 /uL (1100-4500); Lymphocytes Percent Auto 12.3 % (25-40); Mean Corpuscular HGB Conc 33.1 % (30-36); Mean Corpuscular Volume 102.5 fL (80-100); Monocytes Absolute Auto 1000 /uL (0-900); Monocytes Percent Auto 14.2 % (3-14); Neutrophils Absolute Auto 5300 /uL (1500-7000); Neutrophils Percent Auto 73.1 % (50-75); Platelet Count 213 X10^3/uL (150-400); Red Blood Cell Count 4.35 X10^6/uL (4.5-5.9); White Blood Cell Count 7.3 X10^3/uL (4.5-11.0)
[2022-09-01 04:31] LABS: BUN Creatinine Ratio 41.4 (6-22); Blood Urea Nitrogen 55 mg/dL (9-20); Calcium 9.2 mg/dL (8.4-10.2); Carbon Dioxide 34 mmol/L (22-32); Chloride 96 mmol/L (98-107); Estimated Glomerular Filt Rate > 60 mL/min (>60); Glucose 92 mg/dL (70-100); HEMOLYSIS < 15 (0-50); Potassium 4.1 mmol/L (3.4-5.1); Sodium 134 mmol/L (137-145)
[2022-09-01] MEDS: ALBUTEROL/IPRATROPIUM 3 ML AMPUL INH ×2 (07:26→13:06)
[2022-09-01] MEDS: FOLIC ACID 1 MG TABLET PO (08:29)
[2022-09-01] MEDS: LORazepam 0.5 MG TABLET PO (08:29)
[2022-09-01] MEDS: DEXAMETHASONE 10 MG/ML VIAL 6 MG IV (08:29)
[2022-09-01] MEDS: MULTIVITAMIN 1 TABLET 1 TAB PO (08:29)
[2022-09-01] MEDS: ENOXAPARIN 40 MG/0.4 ML SYRINGE SUBCUT (08:29)
[2022-09-01] MEDS: SODIUM CHLORIDE 0.9% FLUSH 10 ML IV ×2 (08:30→22:08)
[2022-09-01] MEDS: OSELTAMIVIR 75 MG CAPSULE PO ×2 (08:30→22:10)
[2022-09-01] MEDS: LORazepam 2 MG/ML INJ 1 MG IV (10:37)
--- NOTE | 2022-09-01 11:18 | PM.CALLCOV.1 ---
Call Coverage Note Note Date of Patient Contact: 09/01/22 Narrative of Care Provided: no change. LFT's not done today. Surgery to sign off. Recommend follow up in Surgery clinic for lap lisa 6 weeks.
--- NOTE | 2022-09-01 13:40 | PM.PN.1 ---
Subjective Subjective Interval history: 56-year-old gentleman with COPD, alcohol dependence, nicotine dependence, and suspected congestive heart failure who was admitted with acute hypoxic respiratory failure, COVID pneumonia, influenza a, and possible superimposed bacterial pneumonia.? Patient also has abdominal pain and has imaging evidence concerning for possible cholecystitis with mobile sludge, pericholecystic fluid, thickened gallbladder wall and positive Walls sign.? General surgery has consulted and recommended medical management for now given his respiratory failure. RN notes he had increased confusion/agitation this am. Received lorazepam 0.5 mg w/o much benefit. Given an additional 0.5 mg and he slept for awhile. However, he is now awake, impulsive and confused. Pt tells me he is in the hospital for drugs and alcohol and COVID. He was reminded he also has influenza and said they tell me I have the trifecta. He reports some history of alcohol w/d but tells me he last drank a couple of weeks ago. Yesterday, his told me he last drank 7 days ago (he has been in the hospital since the evening of 08/27). Exam Vital Signs (past 8 hours): - 09/01/22 06:00 09/01/22 07:00 09/01/22 08:00 Pulse Rate 102 H Respiratory Rate 22 Blood Pressure 144/72 H Pulse Oximetry 96 91 Oxygen Delivery Method Nasal Cannula Nasal Cannula Oxygen Flow Rate 4 4 09/01/22 10:00 09/01/22 10:57 Pulse Rate 91 H Respiratory Rate 15 Blood Pressure Pulse Oximetry 95 Oxygen Delivery Method Nasal Cannula Oxygen Flow Rate 3 Fraction of Inspired Oxygen 40 SaO2/FiO2 Ratio 237 Oxygen Delivery Method Nasal Cannula Oxygen Flow Rate 3 Narrative Exam Narrative: GEN: Alert and oriented x 2, NAD HEENT:NC, Face symmetric CHEST: Respiratory excursions symmetric, coarse w/diffuse expiratory wheezes bilaterally CV:tachycardic w/regular rhythm, no M/R/G ABD: Soft, NT/ND, BT present in all 4 quadrants, no organomegaly or masses appreciated but body habitus limits exam EXTR: warm, well perfused, no C/C/E SKIN: warm and dry, no rash NEURO: Alert and oriented x 2, able to tell me the year, city, location, reason for hospitalization, and his age and birthdate. He is disoriented to month, date, day of week, somewhat tremulous Objective Labs Result Diagrams: 09/01/22 03:45 09/01/22 03:45 Labs: Laboratory Results - last 24 hr 09/01/22 09/01/22 03:45 03:45 WBC 7.3 RBC 4.35 L Hgb 14.8 Hct 44.6 MCV 102.5 H MCH 34.0 MCHC 33.1 RDW 15.0 H Plt Count 213 Neut % (Auto) 73.1 Lymph % (Auto) 12.3 L Winston % (Auto) 14.2 H Eos % (Auto) 0.2 L Baso % (Auto) 0.2 Neut # (Auto) 5300 Lymph # (Auto) 900 L Winston # (Auto) 1000 H Eos # (Auto) 0 Baso # (Auto) 0 Sodium 134 L Potassium 4.1 Chloride 96 L Carbon Dioxide 34 H BUN 55 H Creatinine 1.33 H Estimated GFR > 60 BUN/Creatinine Ratio 41.4 H Glucose 92 Calcium 9.2 PFSH Medical History COPD (chronic obstructive pulmonary disease) Social History household members: spouse Smoking Status: Current every day smoker alcohol intake: current Assessment & Plan Assessment & Plan narrative: 1. Acute hypoxic respiratory failure Overall improving.? Initially BiPAP dependent., then required 6 L.? On 4lpm yesterday, 3lpm currently. Continue weaning as able.? Etiology is likely combination of COVID pneumonia, influenza a, and underlying COPD.? Continue dex/tamiflu. Will d/c cefepime and start Rocephin/azithro. 2. COVID pneumonia Currently receiving dexamethasone 6 mg IV daily (D5/10).? Continue supportive care. 3. Influenza a Presently receiving Tamiflu 75 mg twice daily; will complete a 5 day course. Continue precautions. 4. Suspected congestive heart failure Echocardiogram done earlier this admission revealed concentric LVH, EF of 65-70%, moderately enlarged right ventricle with mildly reduced function.? Hypokinetic apex.? Possible acute cor pulmonale.? CT pulmonary angiogram was performed without evidence of pulmonary embolism. No clinical evidence of CHF currently. 5. Alcohol dependence with late onset of apparent withdrawal Pt developed mild hallucinations yesterday. Since noon yesterday he has been tachycardic/hypertensive. He does not appear to tolerate lorazepam well. Will start low dose librium, 25 mg QID. Continue CIWA protocol. Of note, on his abdominal ultrasound there was an area of the liver that was hyperechoic, possibly focal fatty infiltration.? Attention needs to be paid to that area on future imaging studies. 6. Possible cholecystitis Appreciate consult per General surgery.? For now, will continue supportive care. Will need to f/u outpatient w/Dr. Lee in 6 weeks for lisa. 7. Acute metabolic encephalopathy As noted, he now presents with more typical withdrawal sxs (tachycardia, HTN, mild tremors in addition to hallucinations). He is reportedly now 7 days out from his last drink.?Will add low dose librium 25 QID and monitor response. Continue monitoring CIWA scores. Suspect it is multifactorial from alcohol w/d, COVID and influenza A. 8. Left lung base lobulated masslike opacity measuring 1.5 x 1.6 x 1.4 cm with adjacent nodules. Suspicious for solid mass per imaging.? Will likely need outpatient follow-up and close evaluation for resolution. 9.? Macrocytosis No evidence of anemia.? Likely has an elevated MCV related to his alcohol use. 10. Hyponatremia ?Improving. Up to 134 today. 11. THANIA Creatinine up to 3.36 08/30.? Yesterday, it was improved at 2.69.? Today, he has significant improvement w/creatinine 1.33. 12. Prior hx of DVT He is prescribed Eliquis 5 mg once daily. Code status Full Prophylaxis On Lovenox Disposition Acute inpatient. PCP: Kathrine Suh? Time Spent With Patient Critical Care time: I spent a total of [] minutes of critical care time on this patient's care today; this time is exclusive of procedural time. Quality VTE Deep Vein Thrombosis/Pulmonary Embolism Present on Admission: No
[2022-09-01] MEDS: CEFEPIME 1 GM in SODIUM CHLORIDE 0.9% 100 ML IV (14:00)
[2022-09-01] MEDS: chlordiazePOXIDE 25 MG CAPSULE PO ×3 (14:00→23:29)
[2022-09-01] MEDS: AZITHROMYCIN 500 MG in DEXTROSE 5% IN WATER 250 ML 250 MG IV (15:58)
[2022-09-01] MEDS: cefTRIAXone 2,000 MG in SODIUM CHLORIDE 0.9% 100 ML 200 MG IV (17:19)
[2022-09-01] MEDS: HYDROCODONE/ACET 5/325 TABLET 1 TAB PO (23:29)
[2022-09-02] VITALS (96 sets, daily range): BP systolic 97–183; BP diastolic 58–88; PULSE 62–127; RESP 10–33; TEMP 30–36.9; O2SAT 89–97
[2022-09-02] MEDS: HYDROCODONE/ACET 5/325 TABLET 1 TAB PO (04:19)
[2022-09-02] MEDS: chlordiazePOXIDE 25 MG CAPSULE PO (05:59)
[2022-09-02 09:37] LABS: Osmolality Urine 240 mOsmol/kg (.)
[2022-09-02 09:37] LABS: Osmolality, Serum 284 mOsmol/kg (275-295)
[2022-09-02] MEDS: ALBUTEROL/IPRATROPIUM 3 ML AMPUL INH ×4 (09:41→22:09)
[2022-09-02] MEDS: ENOXAPARIN 40 MG/0.4 ML SYRINGE SUBCUT (10:39)
[2022-09-02] MEDS: SODIUM CHLORIDE 0.9% FLUSH 10 ML IV (10:40)
[2022-09-02] MEDS: DEXAMETHASONE 10 MG/ML VIAL 6 MG IV (10:40)
--- NOTE | 2022-09-02 10:56 | PM.PN.1 ---
Subjective Subjective Date Patient Seen: 09/02/22 Interval history: 56-year-old gentleman with COPD, alcohol dependence, nicotine dependence, and suspected congestive heart failure who was admitted with acute hypoxic respiratory failure, COVID pneumonia, influenza a, and possible superimposed bacterial pneumonia.? Patient also has abdominal pain and has imaging evidence concerning for possible cholecystitis with mobile sludge, pericholecystic fluid, thickened gallbladder wall and positive Walls sign.? General surgery has consulted and recommended medical management for now given his respiratory failure. Today along with confusion ABGs were measured and the patient was noted to have CO2 retention. BiPAP has been initiated and sales representative metals is being notified of ICU status for management. CBC and chemistry panel also pending at this time. Exam Vital Signs (past 8 hours): - 09/02/22 04:00 09/02/22 06:00 09/02/22 08:00 Temperature 98.2 F 98.0 F Pulse Rate 115 H 94 H Respiratory Rate 19 21 Blood Pressure 172/81 H 165/74 H Pulse Oximetry 92 91 96 Oxygen Delivery Method Nasal Cannula Oxygen Flow Rate 3 4 4 Fraction of Inspired Oxygen 38 SaO2/FiO2 Ratio 250 Oxygen Delivery Method Nasal Cannula Oxygen Flow Rate 4 Narrative Exam Narrative: GEN: Alert and improving with BiPAP initiation. HEENT: Face symmetric CHEST: Respiratory excursions symmetric, coarse w/diffuse expiratory wheezes bilaterally CV: S1 and S2 with regular rhythm, no M/R/G ABD: Soft, NT/ND, bowel sounds present throughout the abdomen, no organomegaly or masses appreciated. EXTR: warm, well perfused, no C/C/E SKIN: warm and dry, no rash NEURO: Confusion beginning to clear with BiPAP Objective Labs Result Diagrams: 09/02/22 10:50 09/02/22 10:50 Labs: Laboratory Results - last 24 hr 08/30/22 08/30/22 04:35 15:30 Serum Osmolality 284 Urine Osmolality 240 PFSH Medical History COPD (chronic obstructive pulmonary disease) Social History household members: spouse Smoking Status: Current every day smoker alcohol intake: current Assessment & Plan Assessment & Plan narrative: 1. Acute hypoxic respiratory failure Recurrence of CO2 retention requiring BiPAP. Hospitality Services Manager consult. Continue Rocephin/azithro. Post placement of BiPAP in alert and oriented x2. 2. COVID pneumonia Currently receiving dexamethasone 6 mg IV daily (D5/10).? Continue supportive care. 3. Influenza A Presently receiving Tamiflu 75 mg twice daily; will complete a 5 day course.? Continue precautions. 4. Suspected congestive heart failure Echocardiogram done earlier this admission revealed concentric LVH, EF of 65-70%, moderately enlarged right ventricle with mildly reduced function.? Hypokinetic apex.? Possible acute cor pulmonale.? CT pulmonary angiogram was performed without evidence of pulmonary embolism.? No clinical evidence of CHF currently. 5. Alcohol dependence with late onset of apparent withdrawal. Unclear of withdrawal symptoms or related to CO2 retention. Pt developed mild hallucinations yesterday.? Since noon yesterday he has been tachycardic/hypertensive.? He does not appear to tolerate lorazepam well.? Will start low dose librium, 25 mg QID.? Continue CIWA protocol. Of note, on his abdominal ultrasound there was an area of the liver that was hyperechoic, possibly focal fatty infiltration.? Attention needs to be paid to that area on future imaging studies. 6. Possible cholecystitis Appreciate consult per General surgery.? For now, will continue supportive care.? Will need to f/u outpatient w/Dr. Lee in 6 weeks for lisa. 7. Acute metabolic encephalopathy Currently with CO2 retention. PH 7.25 and pCO2 90.9. Unlikely related to alcohol withdrawal. Although with COVID, influenza A and history of increased alcohol intake, this is likely multifactorial. 8. Left lung base lobulated masslike opacity measuring 1.5 x 1.6 x 1.4 cm with adjacent nodules. Suspicious for solid mass per imaging.? Will likely need outpatient follow-up and close evaluation for resolution. 9.? Macrocytosis No evidence of anemia.? Likely has an elevated MCV related to his alcohol use. 10. Hyponatremia ?Improving.? Up to 137 today, corrected. 11. THANIA Resolve with normal creatinine and GFR. Patient complaining of thirst. Will increase IV fluids. 12.? Prior hx of DVT He is prescribed Eliquis 5 mg once daily.? Held currently and is on Lovenox for DVT prophylaxis. Code status Full Prophylaxis On Lovenox Time Spent With Patient Critical Care time: I spent a total of [] minutes of critical care time on this patient's care today; this time is exclusive of procedural time. Quality VTE Deep Vein Thrombosis/Pulmonary Embolism Present on Admission: No
[2022-09-02] MEDS: SODIUM CHLORIDE 0.9% 1,000 ML 84 ML IV (10:57)
[2022-09-02 10:58] LABS: Hematocrit 45.6 % (41-53); Hemoglobin 15.2 g/dL (13.5-17.5); Mean Corpuscular HGB Conc 33.2 % (30-36); Mean Corpuscular Hemoglobin 34.4 PG (26-34); Mean Corpuscular Volume 103.4 fL (80-100); Platelet Count 189 X10^3/uL (150-400); Red Blood Cell Count 4.41 X10^6/uL (4.5-5.9); Red Cell Distribution Width 14.9 % (11.6-14.8); White Blood Cell Count 5.7 X10^3/uL (4.5-11.0)
[2022-09-02 11:10] LABS: Fractionated Inspired Oxygen 32; HCO3 ABG 40 mmol/L (22-26); Oxygen Saturation ABG 96 % (95-100); PCO2 ABG 90.9 mmHg (35-45); PO2 ABG 103 mmHg (80-100); TCO2 ABG 43 mmol/L (21-31)
[2022-09-02 11:12] LABS: pH ABG 7.25 (7.35-7.45)
[2022-09-02 11:12] LABS: Alanine Aminotransferase 24 IU/L (<50); Albumin Globulin Ratio 0.9 (1.0-2.8); Alkaline Phosphatase 51 U/L (38-126); Aspartate Aminotransferase 26 IU/L (17-59); Bilirubin Total 0.6 mg/dL (0.2-1.3); Blood Urea Nitrogen 34 mg/dL (9-20); Calcium 10.3 mg/dL (8.4-10.2); Carbon Dioxide 39 mmol/L (22-32); Chloride 96 mmol/L (98-107); Estimated Glomerular Filt Rate > 60 mL/min (>60); Globulin 3.3 g/dL (1.7-4.1); Glucose 100 mg/dL (70-100); HEMOLYSIS 29 (0-50); Potassium 4.3 mmol/L (3.4-5.1); Sodium 137 mmol/L (137-145); Total Protein 6.3 g/dL (6.3-8.2)
--- NOTE | 2022-09-02 11:43 | DI.RAD.S_ITS ---
PROCEDURE: XR CHEST 1V INDICATIONS: resp failure TECHNIQUE: One view of the chest was acquired. COMPARISON: [facility], CR, XR CHEST 1V, 08/27/2022, 19:14. FINDINGS: Surgical changes and devices: None. Lungs and pleura: Small patchy infiltrate/atelectasis in bilateral lower lung cruz are seen more prominent on the right side. No pleural effusions or pneumothorax. Mediastinum: Mediastinal contours appear normal. Heart size is normal. Bones and chest wall: No suspicious bony lesions. Overlying soft tissues appear unremarkable. IMPRESSION: Suggestion of right worse than left bilateral lower lobe patchy infiltrate/atelectasis. No pleural effusion or pneumothorax. Dictated by: Marbin Samson M.D. on 09/02/2022 at 12:45 Approved by: Marbin Samson M.D. on 09/02/2022 at 12:45
--- NOTE | 2022-09-02 11:45 | P.TELICUPN_ITS ---
Subjective Subjective IF CAMERA ACTIVATED, patient seen via real-time interactive audiovisual communication: Camera activated Consent obtained for tele-search engineer care: Yes Patient Location: ICU Provider location (State): [place] Other participants/roles: DR. Nava Current Medications Current Medications Medications: Home Medications apixaban 5 mg tablet (Eliquis) 5 mg PO 1XD 08/28/22 [History Confirmed 08/28/22] hydrochlorothiazide 25 mg tablet 25 mg PO 1XD 08/28/22 [History Confirmed 08/28/22] losartan 100 mg tablet 100 mg PO 1XD 08/28/22 [History Confirmed 08/28/22] Visit Medications (administered) Generic Name Dose Route Start Last Admin Trade Name Freq PRN Reason Stop Dose Admin Acetaminophen 650 mg 08/28/22 00:26 08/30/22 15:13 Acetaminophen 325 Mg Tablet PO 650 mg Q6H PRN Administration Fever/Mild Pain (1-3) Albuterol/Ipratropium 3 ml 08/30/22 13:00 09/02/22 09:41 Albuterol/Ipratropium 3 Ml Ampul INH 3 ml [id number] JASPREET Administration Benzocaine 1 each 08/30/22 02:20 08/30/22 17:15 Benzocaine/Menthol 1 Maisha Pkt PO 1 each Q4HR PRN Administration Sore Throat Dexamethasone 6 mg 08/28/22 09:00 09/02/22 10:40 Dexamethasone 10 Mg/Ml Vial IV 6 mg DAILY JASPREET Administration Enoxaparin Sodium 40 mg 09/01/22 09:00 09/02/22 10:39 Enoxaparin 40 Mg/0.4 Ml Syringe SUBCUT 40 mg DAILY JASPREET Administration Folic Acid 1 mg 08/28/22 09:00 09/02/22 10:39 Folic Acid 1 Mg Tablet PO Not Given DAILY JASPREET Sodium Chloride 1,000 mls @ 84 mls/hr 08/30/22 08:00 09/02/22 10:57 Normal Saline 0.9% IV 84 mls/hr CONT JASPREET Administration Ceftriaxone Sodium 2,000 mg/ 100 mls @ 200 mls/hr 09/01/22 15:00 09/01/22 18:02 Sodium Chloride IV 09/02/22 15:29 Infused Q24H JASPREET Infusion Azithromycin 500 mg/ Dextrose 250 mls @ 250 mls/hr 09/01/22 15:00 09/01/22 18:02 IV 09/02/22 15:59 Infused Q24H JASPREET Infusion Multivitamins 1 tab 08/28/22 09:00 09/02/22 10:39 Multivitamin 1 Tablet PO Not Given DAILY JASPREET Oseltamivir Phosphate 75 mg 08/31/22 21:00 09/02/22 10:39 Oseltamivir 75 Mg Capsule PO 09/05/22 09:01 Not Given BID JASPREET Sodium Chloride 10 ml 08/29/22 21:00 09/02/22 10:40 Sodium Chloride 0.9% Flush IV 10 ml BID JASPREET Administration Objective Labs Result Diagrams: 09/02/22 10:50 09/02/22 10:50 Labs: Laboratory Results - last 24 hr 08/30/22 08/30/22 09/02/22 04:35 15:30 10:22 WBC RBC Hgb Hct MCV MCH MCHC RDW Plt Count ABG pH 7.25 L* ABG pCO2 90.9 H* ABG pO2 103 H ABG HCO3 40 H ABG Total CO2 43 H ABG O2 Saturation 96 ABG Base Excess 13.0 H FiO2 32 Sodium Potassium Chloride Carbon Dioxide BUN Creatinine Estimated GFR BUN/Creatinine Ratio Glucose Serum Osmolality 284 Calcium Total Bilirubin AST ALT Alkaline Phosphatase Total Protein Albumin Globulin Albumin/Globulin Ratio Urine Osmolality 240 09/02/22 09/02/22 10:50 10:50 WBC 5.7 RBC 4.41 L Hgb 15.2 Hct 45.6 MCV 103.4 H MCH 34.4 H MCHC 33.2 RDW 14.9 H Plt Count 189 ABG pH ABG pCO2 ABG pO2 ABG HCO3 ABG Total CO2 ABG O2 Saturation ABG Base Excess FiO2 Sodium 137 Potassium 4.3 Chloride 96 L Carbon Dioxide 39 H BUN 34 H Creatinine 0.83 Estimated GFR > 60 BUN/Creatinine Ratio 41.0 H Glucose 100 Serum Osmolality Calcium 10.3 H Total Bilirubin 0.6 AST 26 ALT 24 Alkaline Phosphatase 51 Total Protein 6.3 Albumin 3.0 L Globulin 3.3 Albumin/Globulin Ratio 0.9 L Urine Osmolality Exam Vital Signs (past 8 hours): - 09/02/22 04:00 09/02/22 06:00 09/02/22 08:00 Temperature 98.2 F 98.0 F Pulse Rate 115 H 94 H Respiratory Rate 19 21 Blood Pressure 172/81 H 165/74 H Pulse Oximetry 92 91 96 Oxygen Delivery Method Nasal Cannula Oxygen Flow Rate 3 4 4 Fraction of Inspired Oxygen 09/02/22 11:00 Temperature Pulse Rate Respiratory Rate Blood Pressure 165/74 H Pulse Oximetry Oxygen Delivery Method Oxygen Flow Rate Fraction of Inspired Oxygen 25 Fraction of Inspired Oxygen 25 SaO2/FiO2 Ratio 250 Oxygen Delivery Method Nasal Cannula Oxygen Flow Rate 4 Quality TeleICU VTE Deep Vein Thrombosis/Pulmonary Embolism Present on Admission: No Assessment & Plan Assessment & Plan narrative: patient seen chart/labs/imaing reviewed with Dr. Nava 56 year old male re-admitted to ICU for ams Acute hypercapneic resp failure etoh withdrawal currently afebrile, HD stable, mental status improving on bipap suggest -neurochecks/seizure precautions -ciwa protocol -ok with librium, if high dosesof ativan required and hypercapnea persists suggest intubation -thiamine/folate -start biappa, optimize minute ventilation, repeat abg, if acidosis persits despite optimize settings suggest intubation -nebs -steroids -check cxs -[facility] cxr -abx for now -monitor ins/outs -replace lytes prn -gi/dvt ppx -please call eICU if condition changes total ccme time 55 mins Time Spent With Patient Critical Care time: I spent a total of [] minutes of critical care time on this patient's care today; this time is exclusive of procedural time.
[2022-09-02 12:30] LABS: PCO2 ABG 67.2 mmHg (35-45); PO2 ABG 41 mmHg (80-100)
[2022-09-02 12:31] LABS: HCO3 ABG 38 mmol/L (22-26); Oxygen Saturation ABG 72 % (95-100); TCO2 ABG 40 mmol/L (21-31)
[2022-09-02 12:32] LABS: Fractionated Inspired Oxygen 25
[2022-09-02] MEDS: cefTRIAXone 2,000 MG in SODIUM CHLORIDE 0.9% 100 ML 200 MG IV (15:02)
[2022-09-02] MEDS: AZITHROMYCIN 500 MG in DEXTROSE 5% IN WATER 250 ML 250 MG IV (15:14)
[2022-09-02] MEDS: LOSARTAN 50 MG TABLET 100 MG PO (15:46)
[2022-09-02] MEDS: hydroCHLOROthiazide 25 MG TABLET PO (15:46)
[2022-09-02] MEDS: dexmedeTOMIDine in 0.9 % NaCL 400 MCG/100 ML PLAST..BAG 5.015 MCG IV (15:58)
[2022-09-02 18:10] LABS: Fractionated Inspired Oxygen 25; HCO3 ABG 36 mmol/L (22-26); Oxygen Saturation ABG 92 % (95-100); PCO2 ABG 59.5 mmHg (35-45); PO2 ABG 66 mmHg (80-100); TCO2 ABG 37 mmol/L (21-31); pH ABG 7.39 (7.35-7.45)
--- NOTE | 2022-09-02 19:27 | PC.NURSE ---
Shift summary: Patient transferred to ICU care this morning when requiring BIPAP placed by RT for acidosis and elevated pco2. Patient tolerating about 1.5 hours of BIPAP per RT, before patient wanting mask off. Patient tolerated eating lunch and c/o being thirsty today. As day progressed patient started to become further agitated, restless, tachycardic and hypertensive. Patient seen by Dr. Ness and Dr. Nava. Precedex started to help patient tolerate BIPAP again. Repeat ABG for evening completed by RT and results called to ICU Dr. Castro by RT. Plan to maintain BIPAP at this time. Patient now resting comfortably in bed with bed alarm on and call light within reach.
--- NOTE | 2022-09-02 19:46 | PM.ICURNDS ---
- Date Patient Seen: 09/02/22 Time Patient Seen: 19:46 :: This patient was seen via real time interactive two-way audiovisual telecommunication. Note: Patient placed back on BiPAP FiO2 35%. Appears comfortable. On precedex 0.4 mcg. Continue BIPAP at night. D/w RN.
[2022-09-02] MEDS: BUDESONIDE 0.5 MG/2 ML NEB INH (19:58)
--- NOTE | 2022-09-02 21:01 | PC.NURSE ---
2015- Patient resting comfortably on Bipap. at bedside. Discussed plan for the night after some initial frustration with keeping patient on Bipap all night, verbalized understanding and will plan to stay the night. Will monitor closely.
[2022-09-02] MEDS: SODIUM CHLORIDE 0.9% 1,000 ML 125 ML IV (21:57)
[2022-09-02] MEDS: dexmedeTOMIDine in 0.9 % NaCL 400 MCG/100 ML PLAST..BAG 10.03 MCG IV (22:01)
[2022-09-03] VITALS (124 sets, daily range): BP systolic 104–178; BP diastolic 54–87; PULSE 54–132; RESP 10–38; TEMP 30–37; O2SAT 88–97
[2022-09-03 05:32] LABS: Add Manual Diff / Slide Review NO; Basophils Absolute Auto 0 /uL (0-100); Basophils Percent Auto 0.1 % (0-2); Eosinophils Absolute Auto 0 /uL (0-450); Eosinophils Percent Auto 0.5 % (2-4); Hematocrit 44.1 % (41-53); Hemoglobin 14.7 g/dL (13.5-17.5); Lymphocytes Absolute Auto 700 /uL (1100-4500); Lymphocytes Percent Auto 17.2 % (25-40); Mean Corpuscular HGB Conc 33.4 % (30-36); Mean Corpuscular Hemoglobin 34.1 PG (26-34); Mean Corpuscular Volume 102.2 fL (80-100); Monocytes Absolute Auto 600 /uL (0-900); Monocytes Percent Auto 12.8 % (3-14); Neutrophils Absolute Auto 3000 /uL (1500-7000); Neutrophils Percent Auto 69.4 % (50-75); Platelet Count 175 X10^3/uL (150-400); Red Blood Cell Count 4.32 X10^6/uL (4.5-5.9); Red Cell Distribution Width 14.8 % (11.6-14.8); White Blood Cell Count 4.3 X10^3/uL (4.5-11.0)
[2022-09-03 05:59] LABS: Alanine Aminotransferase 20 IU/L (<50); Albumin 2.8 g/dL (3.5-5.0); Alkaline Phosphatase 47 U/L (38-126); Aspartate Aminotransferase 18 IU/L (17-59); BUN Creatinine Ratio 35.1 (6-22); Blood Urea Nitrogen 26 mg/dL (9-20); Calcium 9.6 mg/dL (8.4-10.2); Carbon Dioxide 34 mmol/L (22-32); Chloride 97 mmol/L (98-107); Estimated Glomerular Filt Rate > 60 mL/min (>60); Globulin 2.9 g/dL (1.7-4.1); Glucose 106 mg/dL (70-100); HEMOLYSIS < 15 (0-50); Potassium 4.2 mmol/L (3.4-5.1); Sodium 134 mmol/L (137-145); Total Protein 5.7 g/dL (6.3-8.2)
[2022-09-03] MEDS: SODIUM CHLORIDE 0.9% 1,000 ML 125 ML IV (05:59)
[2022-09-03] MEDS: BUDESONIDE 0.5 MG/2 ML NEB INH ×2 (07:40→20:00)
[2022-09-03] MEDS: ALBUTEROL/IPRATROPIUM 3 ML AMPUL INH ×4 (07:40→20:00)
[2022-09-03] MEDS: dexmedeTOMIDine in 0.9 % NaCL 400 MCG/100 ML PLAST..BAG 10.03 MCG IV (08:09)
[2022-09-03] MEDS: DEXAMETHASONE 10 MG/ML VIAL 6 MG IV (10:05)
[2022-09-03] MEDS: chlordiazePOXIDE 25 MG CAPSULE 50 MG PO ×3 (10:06→20:14)
[2022-09-03] MEDS: ENOXAPARIN 40 MG/0.4 ML SYRINGE SUBCUT (10:06)
[2022-09-03] MEDS: OSELTAMIVIR 75 MG CAPSULE PO ×2 (10:07→20:14)
[2022-09-03] MEDS: FOLIC ACID 1 MG TABLET PO (10:07)
[2022-09-03] MEDS: hydroCHLOROthiazide 25 MG TABLET PO (10:08)
[2022-09-03] MEDS: LOSARTAN 50 MG TABLET 100 MG PO (10:08)
[2022-09-03] MEDS: MULTIVITAMIN 1 TABLET 1 TAB PO (10:08)
[2022-09-03] MEDS: SODIUM CHLORIDE 0.9% FLUSH 10 ML IV ×2 (10:09→20:13)
--- NOTE | 2022-09-03 10:13 | P.TELICUPN_ITS ---
Subjective Subjective IF CAMERA ACTIVATED, patient seen via real-time interactive audiovisual communication: Camera activated Consent obtained for tele-metal tank builder care: Yes Patient Location: ICU Provider location (State): [place] Other participants/roles: Dr. Ng, bedside nurseing, RT Current Medications Current Medications Medications: Home Medications apixaban 5 mg tablet (Eliquis) 5 mg PO 1XD 08/28/22 [History Confirmed 08/28/22] hydrochlorothiazide 25 mg tablet 25 mg PO 1XD 08/28/22 [History Confirmed 08/28/22] losartan 100 mg tablet 100 mg PO 1XD 08/28/22 [History Confirmed 08/28/22] Visit Medications (administered) Generic Name Dose Route Start Last Admin Trade Name Freq PRN Reason Stop Dose Admin Acetaminophen 650 mg 08/28/22 00:26 08/30/22 15:13 Acetaminophen 325 Mg Tablet PO 650 mg Q6H PRN Administration Fever/Mild Pain (1-3) Albuterol/Ipratropium 3 ml 09/02/22 19:00 09/03/22 07:40 Albuterol/Ipratropium 3 Ml Ampul INH 3 ml [id number] JASPREET Administration Benzocaine 1 each 08/30/22 02:20 08/30/22 17:15 Benzocaine/Menthol 1 Maisha Pkt PO 1 each Q4HR PRN Administration Sore Throat Budesonide 0.5 mg 09/02/22 20:00 09/03/22 07:40 Budesonide 0.5 Mg/2 Ml Neb INH 0.5 mg RTBID JASPREET Administration Chlordiazepoxide HCl 50 mg 09/03/22 09:45 09/03/22 10:06 Chlordiazepoxide 25 Mg Capsule PO 50 mg TID JASPREET Administration Dexamethasone 6 mg 08/28/22 09:00 09/03/22 10:05 Dexamethasone 10 Mg/Ml Vial IV 6 mg DAILY JASPREET Administration Enoxaparin Sodium 40 mg 09/01/22 09:00 09/03/22 10:06 Enoxaparin 40 Mg/0.4 Ml Syringe SUBCUT 40 mg DAILY JASPREET Administration Folic Acid 1 mg 08/28/22 09:00 09/03/22 10:07 Folic Acid 1 Mg Tablet PO 1 mg DAILY JASPREET Administration Hydrochlorothiazide 25 mg 09/02/22 15:45 09/03/22 10:08 Hydrochlorothiazide 25 Mg Tablet PO 25 mg DAILY JASPREET Administration dexmedeTOMIDine in 0.9 % NaCL 400 mcg in 100 mls @ 5.015 mls/hr 09/02/22 15:45 09/03/22 08:09 Precedex IV 0.4 mcg/kg/hr TITRATE JASPREET 10.03 mls/hr Administration Protocol 0.2 MCG/KG/HR Losartan Potassium 100 mg 09/02/22 15:45 09/03/22 10:08 Losartan 50 Mg Tablet PO 100 mg DAILY JASPREET Administration Multivitamins 1 tab 08/28/22 09:00 09/03/22 10:08 Multivitamin 1 Tablet PO 1 tab DAILY JASPREET Administration Oseltamivir Phosphate 75 mg 08/31/22 21:00 09/03/22 10:07 Oseltamivir 75 Mg Capsule PO 09/05/22 09:01 75 mg BID JASPREET Administration Sodium Chloride 10 ml 08/29/22 21:00 09/03/22 10:09 Sodium Chloride 0.9% Flush IV 10 ml BID JASPREET Administration Objective Ventilator Parameters: Ventilator Settings FiO2 0.25 Labs Result Diagrams: 09/03/22 04:34 09/03/22 04:34 Labs: Laboratory Results - last 24 hr 09/02/22 09/02/22 09/02/22 10:22 10:50 10:50 WBC 5.7 RBC 4.41 L Hgb 15.2 Hct 45.6 MCV 103.4 H MCH 34.4 H MCHC 33.2 RDW 14.9 H Plt Count 189 Neut % (Auto) Lymph % (Auto) Braxton % (Auto) Eos % (Auto) Baso % (Auto) Neut # (Auto) Lymph # (Auto) Braxton # (Auto) Eos # (Auto) Baso # (Auto) ABG pH 7.25 L* ABG pCO2 90.9 H* ABG pO2 103 H ABG HCO3 40 H ABG Total CO2 43 H ABG O2 Saturation 96 ABG Base Excess 13.0 H FiO2 32 Sodium 137 Potassium 4.3 Chloride 96 L Carbon Dioxide 39 H BUN 34 H Creatinine 0.83 Estimated GFR > 60 BUN/Creatinine Ratio 41.0 H Glucose 100 Calcium 10.3 H Total Bilirubin 0.6 AST 26 ALT 24 Alkaline Phosphatase 51 Total Protein 6.3 Albumin 3.0 L Globulin 3.3 Albumin/Globulin Ratio 0.9 L 12/09/02/22 09/03/22 11:54 17:33 04:34 WBC 4.3 L RBC 4.32 L Hgb 14.7 Hct 44.1 MCV 102.2 H MCH 34.1 H MCHC 33.4 RDW 14.8 Plt Count 175 Neut % (Auto) 69.4 Lymph % (Auto) 17.2 L Braxton % (Auto) 12.8 Eos % (Auto) 0.5 L Baso % (Auto) 0.1 Neut # (Auto) 3000 Lymph # (Auto) 700 L Braxton # (Auto) 600 Eos # (Auto) 0 Baso # (Auto) 0 ABG pH 7.36 7.39 ABG pCO2 67.2 H* 59.5 H ABG pO2 41 L* 66 L ABG HCO3 38 H 36 H ABG Total CO2 40 H 37 H ABG O2 Saturation 72 L* 92 L ABG Base Excess 13.0 H 11.0 H FiO2 25 25 Sodium Potassium Chloride Carbon Dioxide BUN Creatinine Estimated GFR BUN/Creatinine Ratio Glucose Calcium Total Bilirubin AST ALT Alkaline Phosphatase Total Protein Albumin Globulin Albumin/Globulin Ratio 09/03/22 04:34 WBC RBC Hgb Hct MCV MCH MCHC RDW Plt Count Neut % (Auto) Lymph % (Auto) Braxton % (Auto) Eos % (Auto) Baso % (Auto) Neut # (Auto) Lymph # (Auto) Braxton # (Auto) Eos # (Auto) Baso # (Auto) ABG pH ABG pCO2 ABG pO2 ABG HCO3 ABG Total CO2 ABG O2 Saturation ABG Base Excess FiO2 Sodium 134 L Potassium 4.2 Chloride 97 L Carbon Dioxide 34 H BUN 26 H Creatinine 0.74 Estimated GFR > 60 BUN/Creatinine Ratio 35.1 H Glucose 106 H Calcium 9.6 Total Bilirubin 1.0 AST 18 ALT 20 Alkaline Phosphatase 47 Total Protein 5.7 L Albumin 2.8 L Globulin 2.9 Albumin/Globulin Ratio 1.0 Exam Vital Signs (past 8 hours): - 09/03/22 02:15 09/03/22 02:20 09/03/22 02:25 Temperature Pulse Rate 65 68 64 Respiratory Rate 17 19 20 Blood Pressure Pulse Oximetry 93 94 93 Fraction of Inspired Oxygen 09/03/22 02:30 09/03/22 02:30 09/03/22 02:35 Temperature Pulse Rate 56 L 56 L Respiratory Rate 22 25 H Blood Pressure 145/72 H Pulse Oximetry 93 93 Fraction of Inspired Oxygen 09/03/22 02:40 09/03/22 02:45 09/03/22 02:50 Temperature Pulse Rate 57 L 73 59 L Respiratory Rate 24 20 26 H Blood Pressure Pulse Oximetry 93 93 94 Fraction of Inspired Oxygen 09/03/22 02:55 09/03/22 03:00 09/03/22 03:00 Temperature Pulse Rate 57 L 57 L Respiratory Rate 25 H 25 H Blood Pressure 144/76 H Pulse Oximetry 93 94 Fraction of Inspired Oxygen 09/03/22 03:05 09/03/22 03:10 09/03/22 03:15 Temperature Pulse Rate 56 L 56 L 55 L Respiratory Rate 23 23 23 Blood Pressure Pulse Oximetry 94 94 94 Fraction of Inspired Oxygen 09/03/22 03:20 09/03/22 03:25 09/03/22 03:30 Temperature Pulse Rate 56 L 56 L Respiratory Rate 23 28 H Blood Pressure 149/79 H Pulse Oximetry 94 94 Fraction of Inspired Oxygen 09/03/22 03:30 09/03/22 03:35 09/03/22 03:40 Temperature Pulse Rate 58 L 58 L 57 L Respiratory Rate 25 H 24 24 Blood Pressure Pulse Oximetry 94 94 94 Fraction of Inspired Oxygen 09/03/22 04:00 09/03/22 04:00 09/03/22 04:30 Temperature 97.4 F L Pulse Rate 57 L 64 Respiratory Rate 23 18 Blood Pressure 138/72 Pulse Oximetry 94 94 Fraction of Inspired Oxygen 09/03/22 04:30 09/03/22 04:39 09/03/22 05:08 Temperature Pulse Rate 58 L Respiratory Rate 23 Blood Pressure 150/83 H 141/71 H Pulse Oximetry 94 Fraction of Inspired Oxygen 09/03/22 06:14 09/03/22 05:00 09/03/22 05:00 Temperature Pulse Rate 59 L Respiratory Rate 23 Blood Pressure 139/74 141/71 H Pulse Oximetry 94 Fraction of Inspired Oxygen 09/03/22 05:30 09/03/22 05:30 09/03/22 06:00 Temperature Pulse Rate 58 L 58 L Respiratory Rate 23 20 Blood Pressure 136/74 Pulse Oximetry 93 93 Fraction of Inspired Oxygen 09/03/22 06:00 09/03/22 06:31 09/03/22 06:31 Temperature Pulse Rate 57 L Respiratory Rate 23 Blood Pressure 139/74 132/66 Pulse Oximetry 92 Fraction of Inspired Oxygen 09/03/22 07:00 09/03/22 07:00 09/03/22 07:13 Temperature Pulse Rate 56 L 57 L Respiratory Rate 23 23 Blood Pressure 129/66 Pulse Oximetry 93 93 Fraction of Inspired Oxygen 09/03/22 08:00 09/03/22 07:05 09/03/22 07:10 Temperature Pulse Rate 57 L 59 L Respiratory Rate 23 21 Blood Pressure 124/71 Pulse Oximetry 93 93 Fraction of Inspired Oxygen 25 09/03/22 07:15 09/03/22 07:20 09/03/22 07:25 Temperature Pulse Rate 55 L 56 L 56 L Respiratory Rate 21 23 23 Blood Pressure Pulse Oximetry 93 93 93 Fraction of Inspired Oxygen 09/03/22 07:30 09/03/22 07:30 09/03/22 09:00 Temperature Pulse Rate 55 L Respiratory Rate 23 Blood Pressure 126/66 127/69 Pulse Oximetry 93 Fraction of Inspired Oxygen 09/03/22 09:00 09/03/22 09:05 09/03/22 10:08 Temperature Pulse Rate 57 L 57 L 57 L Respiratory Rate 20 21 Blood Pressure 130/67 Pulse Oximetry 88 L 88 L Fraction of Inspired Oxygen Fraction of Inspired Oxygen 25 SaO2/FiO2 Ratio 250 Oxygen Delivery Method BiPAP Oxygen Flow Rate 3 Quality TeleICU VTE Deep Vein Thrombosis/Pulmonary Embolism Present on Admission: No Assessment & Plan Assessment & Plan narrative: patient seen at daily rounds with MTD team, discussed with Dr. Ng chart/labs/imaging 56 year old male re-admitted to ICU for ams Acute hypercapneic resp failure etoh withdrawal currently afebrile, HD stable, mental status baseline on bipap suggest -neurochecks/seizure precautions -ciwa protocol -continue librium -check abg -bipap prn, keep sat 88-92% -thiamine/folate -nebs -steroids -check cxs -consider holding karla/hctz -abx for now -monitor ins/outs -replace lytes prn -gi/dvt ppx -please call eICU if condition changes total ccme time 55 mins Time Spent With Patient Critical Care time: I spent a total of [] minutes of critical care time on this patient's care today; this time is exclusive of procedural time.
[2022-09-03 12:22] LABS: Oxygen Saturation ABG 90 % (95-100); PCO2 ABG 48.6 mmHg (35-45); PO2 ABG 58 mmHg (80-100); TCO2 ABG 35 mmol/L (21-31); pH ABG 7.45 (7.35-7.45)
[2022-09-03 12:23] LABS: Fractionated Inspired Oxygen 21
[2022-09-03] MEDS: QUETIAPINE 25 MG TABLET PO ×2 (12:27→20:14)
--- NOTE | 2022-09-03 14:29 | P.PN_ITS ---
Subjective Subjective Interval history: 56-year-old gentleman with COPD, alcohol dependence, nicotine dependence, and suspected congestive heart failure who was admitted with acute hypoxic respiratory failure, COVID pneumonia, influenza a, and possible superimposed bacterial pneumonia.? Patient also has abdominal pain and has imaging evidence concerning for possible cholecystitis with mobile sludge, pericholecystic fluid, thickened gallbladder wall and positive Walls sign.? General surgery has consulted and recommended medical management with outpatient follow-up planned in 6 weeks' time. Three days ago, he began complaining of some hallucinations and was noted to have persistent tachycardia and hypertension. Two days ago, this was persistent and he was hallucinating monsters. He was initiated on L ibrium 25 t.i.d. for possible delayed alcohol withdrawal. Yesterday, patient developed hypercapnic respiratory failure. He was transitioned to ICU status. He was placed on BiPAP. This morning, he is doing fairly well. He remains on BiPAP but is on room air. He reports he does continue to have some hallucinations. However, his tachycardia and hypertension have resolved. His is at bedside. Exam Vital Signs (past 8 hours): - 09/03/22 06:31 09/03/22 06:31 09/03/22 07:00 Temperature Pulse Rate 57 L 56 L Respiratory Rate 23 23 Blood Pressure 132/66 Pulse Oximetry 92 93 Fraction of Inspired Oxygen 09/03/22 07:00 09/03/22 07:13 09/03/22 08:00 Temperature Pulse Rate 57 L Respiratory Rate 23 Blood Pressure 129/66 124/71 Pulse Oximetry 93 Fraction of Inspired Oxygen 25 09/03/22 07:05 09/03/22 07:10 09/03/22 07:15 Temperature Pulse Rate 57 L 59 L 55 L Respiratory Rate 23 21 21 Blood Pressure Pulse Oximetry 93 93 93 Fraction of Inspired Oxygen 09/03/22 07:20 09/03/22 07:25 09/03/22 07:30 Temperature Pulse Rate 56 L 56 L Respiratory Rate 23 23 Blood Pressure 126/66 Pulse Oximetry 93 93 Fraction of Inspired Oxygen 09/03/22 07:30 09/03/22 09:00 09/03/22 09:00 Temperature Pulse Rate 55 L 57 L Respiratory Rate 23 20 Blood Pressure 127/69 Pulse Oximetry 93 88 L Fraction of Inspired Oxygen 09/03/22 09:05 09/03/22 10:08 09/03/22 10:00 Temperature Pulse Rate 57 L 57 L Respiratory Rate 21 Blood Pressure 130/67 130/67 Pulse Oximetry 88 L Fraction of Inspired Oxygen 09/03/22 10:00 09/03/22 10:05 09/03/22 10:10 Temperature Pulse Rate 54 L 55 L 64 Respiratory Rate 22 21 16 Blood Pressure Pulse Oximetry 89 L 89 L 89 L Fraction of Inspired Oxygen 09/03/22 10:15 09/03/22 10:20 09/03/22 10:25 Temperature Pulse Rate 57 L 64 61 Respiratory Rate 21 20 20 Blood Pressure Pulse Oximetry 90 L 91 90 L Fraction of Inspired Oxygen 09/03/22 10:30 09/03/22 10:30 09/03/22 08:00 Temperature 98.6 F Pulse Rate 60 Respiratory Rate 20 Blood Pressure 136/72 Pulse Oximetry 90 L Fraction of Inspired Oxygen 09/03/22 10:50 09/03/22 11:00 09/03/22 11:00 Temperature Pulse Rate 56 L Respiratory Rate 23 Blood Pressure 136/72 132/71 Pulse Oximetry 91 Fraction of Inspired Oxygen 09/03/22 11:05 09/03/22 11:10 09/03/22 11:15 Temperature Pulse Rate 70 72 72 Respiratory Rate 23 27 H 26 H Blood Pressure Pulse Oximetry 91 89 L 89 L Fraction of Inspired Oxygen 09/03/22 11:20 09/03/22 11:25 09/03/22 11:30 Temperature Pulse Rate 77 73 Respiratory Rate 25 H 24 Blood Pressure 149/74 H Pulse Oximetry 89 L 89 L Fraction of Inspired Oxygen 09/03/22 11:30 09/03/22 12:00 09/03/22 12:00 Temperature Pulse Rate 71 58 L Respiratory Rate 22 23 Blood Pressure 142/65 H Pulse Oximetry 88 L 95 Fraction of Inspired Oxygen 09/03/22 12:05 09/03/22 12:10 09/03/22 12:15 Temperature Pulse Rate 58 L 58 L 59 L Respiratory Rate 21 23 23 Blood Pressure Pulse Oximetry 95 96 96 Fraction of Inspired Oxygen 09/03/22 12:20 09/03/22 12:25 09/03/22 12:30 Temperature Pulse Rate 58 L 60 Respiratory Rate 20 23 Blood Pressure 132/74 Pulse Oximetry 96 97 Fraction of Inspired Oxygen 09/03/22 12:30 09/03/22 13:00 09/03/22 13:00 Temperature 96.5 F L Pulse Rate 73 85 Respiratory Rate 23 24 Blood Pressure 132/74 Pulse Oximetry 96 93 Fraction of Inspired Oxygen 09/03/22 13:05 09/03/22 13:10 09/03/22 13:15 Temperature Pulse Rate 86 96 H 97 H Respiratory Rate 27 H 28 H 22 Blood Pressure Pulse Oximetry 92 92 92 Fraction of Inspired Oxygen 09/03/22 13:20 09/03/22 13:25 09/03/22 13:30 Temperature Pulse Rate 91 H 92 H Respiratory Rate 23 25 H Blood Pressure 128/87 Pulse Oximetry 92 92 Fraction of Inspired Oxygen 09/03/22 13:30 Temperature Pulse Rate 96 H Respiratory Rate 26 H Blood Pressure Pulse Oximetry 92 Fraction of Inspired Oxygen Fraction of Inspired Oxygen 21 SaO2/FiO2 Ratio 250 Oxygen Delivery Method BiPAP Oxygen Flow Rate 3 Narrative Exam Narrative: GEN: Alert and oriented x 2, NAD HEENT:NC, Face symmetric CHEST: Respiratory excursions symmetric, coarse and diminished w/diffuse expiratory wheezes bilaterally CV: Regular rate and rhythm, no M/R/G ABD: Soft, obese, NT/ND, BT present in all 4 quadrants, no organomegaly or masses appreciated but body habitus limits exam EXTR: warm, well perfused, no C/C/E SKIN: warm and dry, no rash NEURO: Alert and oriented x 2 Objective Labs Result Diagrams: 09/03/22 04:34 09/03/22 04:34 Labs: Laboratory Results - last 24 hr 09/02/22 09/03/22 09/03/22 17:33 04:34 04:34 WBC 4.3 L RBC 4.32 L Hgb 14.7 Hct 44.1 MCV 102.2 H MCH 34.1 H MCHC 33.4 RDW 14.8 Plt Count 175 Neut % (Auto) 69.4 Lymph % (Auto) 17.2 L Sutter % (Auto) 12.8 Eos % (Auto) 0.5 L Baso % (Auto) 0.1 Neut # (Auto) 3000 Lymph # (Auto) 700 L Sutter # (Auto) 600 Eos # (Auto) 0 Baso # (Auto) 0 ABG pH 7.39 ABG pCO2 59.5 H ABG pO2 66 L ABG HCO3 36 H ABG Total CO2 37 H ABG O2 Saturation 92 L ABG Base Excess 11.0 H FiO2 25 Sodium 134 L Potassium 4.2 Chloride 97 L Carbon Dioxide 34 H BUN 26 H Creatinine 0.74 Estimated GFR > 60 BUN/Creatinine Ratio 35.1 H Glucose 106 H Calcium 9.6 Total Bilirubin 1.0 AST 18 ALT 20 Alkaline Phosphatase 47 Total Protein 5.7 L Albumin 2.8 L Globulin 2.9 Albumin/Globulin Ratio 1.0 09/03/22 10:53 WBC RBC Hgb Hct MCV MCH MCHC RDW Plt Count Neut % (Auto) Lymph % (Auto) Sutter % (Auto) Eos % (Auto) Baso % (Auto) Neut # (Auto) Lymph # (Auto) Sutter # (Auto) Eos # (Auto) Baso # (Auto) ABG pH 7.45 ABG pCO2 48.6 H ABG pO2 58 L ABG HCO3 10 L ABG Total CO2 35 H ABG O2 Saturation 90 L ABG Base Excess 10.0 H FiO2 21 Sodium Potassium Chloride Carbon Dioxide BUN Creatinine Estimated GFR BUN/Creatinine Ratio Glucose Calcium Total Bilirubin AST ALT Alkaline Phosphatase Total Protein Albumin Globulin Albumin/Globulin Ratio [facility] Medical History COPD (chronic obstructive pulmonary disease) Social History household members: spouse Smoking Status: Current every day smoker alcohol intake: current Assessment & Plan Assessment & Plan narrative: 1. Acute hypoxic respiratory failure Overall improving.? Initially BiPAP dependent., then weaned down to 3 liters/minute. Yesterday he developed hypercapnic respiratory failure requiring BiPAP. He had been on q.6 hours hydrocodone which has since been discontinued. He would also been on low-dose Librium 25 mg q.i.d.. Both of these were discontinued. Etiology of respiratory failure is likely combination of COVID pneumonia, influenza a, and underlying COPD.? Continue dex/tamiflu.? He did complete a 5 day course of antibiotics. 2. COVID pneumonia Currently receiving dexamethasone 6 mg IV daily (D7/10).? Continue supportive care. 3. Influenza a Presently receiving Tamiflu 75 mg twice daily (day 3/5).? Continue precautions. 4. Suspected congestive heart failure Echocardiogram done earlier this admission revealed concentric LVH, EF of 65- 70%, moderately enlarged right ventricle with mildly reduced function.? Hypokinetic apex.? Possible acute cor pulmonale.? CT pulmonary angiogram was performed without evidence of pulmonary embolism.? No clinical evidence of CHF presently. 5. Alcohol dependence with late onset of apparent withdrawal versus acute metabolic encephalopathy Pt developed mild hallucinations on August 31 and became persistently tachycardic and hypertensive.? He was noted have mild tremors on September 02. He was placed on low-dose Librium as noted above. He did receive a total of 4 doses but yesterday developed worsening respiratory failure as noted above. At this time, he is no longer tachycardic or hypertensive. He does continue to endorse some hallucinations. At this point, it is unlikely to reflect withdrawal but rather acute encephalopathy/delirium. Will initiate Seroquel 25 mg twice daily to help with anxiety. 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 Of note, on his abdominal ultrasound there was an area of the liver that was hyperechoic, possibly focal fatty infiltration.? Attention needs to be paid to that area on future imaging studies. 6. Possible cholecystitis Appreciate consult per General surgery.? For now, will continue supportive care.? Will need to f/u outpatient w/Dr. Lee in 6 weeks for lisa. 7. Acute metabolic encephalopathy Suspect it is multifactorial from respiratory failure, alcohol w/d, COVID and influenza A. 8. Left lung base lobulated masslike opacity measuring 1.5 x 1.6 x 1.4 cm with adjacent nodules. Suspicious for solid mass per imaging.? Will likely need outpatient follow-up and close evaluation for resolution. 9.? Macrocytosis No evidence of anemia.? Likely has an elevated MCV related to his alcohol use. 10. Hyponatremia Mild at 134. 11. THANIA Creatinine up to 3.36 08/30.? Has now normalized and is back down to 0.74 12.? Prior hx of DVT He is prescribed Eliquis 5 mg once daily.? Encouraged patient's to follow- up with her PCP to discuss why he continues to be on Eliquis and specifically at a once daily dosing, as she notes the DVT was several years ago. Code status Full Prophylaxis On Lovenox Disposition Acute inpatient, ICU status. PCP: Kathrine Suh? Time Spent With Patient Critical Care time: I spent a total of [] minutes of critical care time on this patient's care today; this time is exclusive of procedural time. Quality VTE Deep Vein Thrombosis/Pulmonary Embolism Present on Admission: No
--- NOTE | 2022-09-03 20:16 | PM.ICURNDS ---
- Date Patient Seen: 09/03/22 Time Patient Seen: 20:16 :: This patient was seen via real time interactive two-way audiovisual telecommunication. Note: Patient is off precedex gtt and now on 4 liters NC. Will keep patient off BiPAP and monitor on NC. If remains off BiPAP for 24 hours then okay to transfer to floor. D/w RN.
[2022-09-03] MEDS: METOPROLOL TARTRATE 5 MG/5 ML INJ IV (21:47)
[2022-09-04] VITALS (21 sets, daily range): BP systolic 143–168; BP diastolic 60–100; PULSE 59–118; RESP 18–32; O2SAT 89–97
--- NOTE | 2022-09-04 01:07 | PC.NURSE ---
Addendum entered by Arline Johns R.N. 09/04/22 06:22: Patient continued to be restless but fairly cooperative with at bedside, Precedex titrated up to 0.8mcg, Tylenol and Seroquel given per prn, patient fell asleep at 0400. Original Note: Beef Lugger [id number] Inspector called about ST sustaining 130s, order received for IV metoprolo 5mg Q4h prn. HR down to 110 until patient became agitated at 2345, stating I am leaving You can't keep me hear against my will He was able to state place, date, and partial situation, HR back up to 120, BP 151/60, RR 30, SpO2 >94% on 4L NC, denies pain or shortness of breath, says I feel fine. Staff attempting to deescalate, Precedex restarted, called, she came to sit with patient.
[2022-09-04] MEDS: ALBUTEROL/IPRATROPIUM 3 ML AMPUL INH ×3 (01:27→14:26)
[2022-09-04] MEDS: dexmedeTOMIDine in 0.9 % NaCL 400 MCG/100 ML PLAST..BAG 20.06 MCG IV (01:44)
[2022-09-04] MEDS: ACETAMINOPHEN 325 MG TABLET 650 MG PO (03:11)
[2022-09-04] MEDS: QUETIAPINE 25 MG TABLET PO (03:11)
[2022-09-04 04:49] LABS: BUN Creatinine Ratio 38.5 (6-22); Blood Urea Nitrogen 30 mg/dL (9-20); Calcium 10.1 mg/dL (8.4-10.2); Carbon Dioxide 36 mmol/L (22-32); Chloride 98 mmol/L (98-107); Estimated Glomerular Filt Rate > 60 mL/min (>60); Glucose 128 mg/dL (70-100); HEMOLYSIS < 15 (0-50); Potassium 3.7 mmol/L (3.4-5.1); Sodium 136 mmol/L (137-145)
[2022-09-04 04:51] LABS: Add Manual Diff / Slide Review NO; Basophils Absolute Auto 0 /uL (0-100); Basophils Percent Auto 0.1 % (0-2); Eosinophils Absolute Auto 0 /uL (0-450); Eosinophils Percent Auto 0.3 % (2-4); Hematocrit 43.4 % (41-53); Hemoglobin 14.5 g/dL (13.5-17.5); Lymphocytes Absolute Auto 700 /uL (1100-4500); Lymphocytes Percent Auto 12.6 % (25-40); Mean Corpuscular HGB Conc 33.4 % (30-36); Mean Corpuscular Hemoglobin 34.1 PG (26-34); Mean Corpuscular Volume 102.1 fL (80-100); Monocytes Absolute Auto 700 /uL (0-900); Monocytes Percent Auto 12.7 % (3-14); Neutrophils Absolute Auto 4300 /uL (1500-7000); Neutrophils Percent Auto 74.3 % (50-75); Platelet Count 179 X10^3/uL (150-400); Red Blood Cell Count 4.25 X10^6/uL (4.5-5.9); White Blood Cell Count 5.9 X10^3/uL (4.5-11.0)
[2022-09-04] MEDS: dexmedeTOMIDine in 0.9 % NaCL 400 MCG/100 ML PLAST..BAG 15.045 MCG IV (06:33)
[2022-09-04] MEDS: BUDESONIDE 0.5 MG/2 ML NEB INH (08:59)
[2022-09-04] MEDS: chlordiazePOXIDE 25 MG CAPSULE 50 MG PO (10:44)
[2022-09-04] MEDS: ENOXAPARIN 40 MG/0.4 ML SYRINGE SUBCUT (10:44)
[2022-09-04] MEDS: hydrOXYzine pamoate 25 MG CAPSULE 50 MG PO (10:44)
[2022-09-04] MEDS: DEXAMETHASONE 10 MG/ML VIAL 6 MG IV (10:44)
[2022-09-04] MEDS: FOLIC ACID 1 MG TABLET PO (10:44)
[2022-09-04] MEDS: MULTIVITAMIN 1 TABLET 1 TAB PO (10:45)
[2022-09-04] MEDS: LOSARTAN 50 MG TABLET 100 MG PO (10:45)
--- NOTE | 2022-09-04 10:45 | P.TELICUPN_ITS ---
Subjective Subjective IF CAMERA ACTIVATED, patient seen via real-time interactive audiovisual communication: Camera activated Consent obtained for tele-certified medical technician care: Yes Patient Location: ICU Provider location (State): [place] Other participants/roles: Rn, RT Subjective Interval history: Overnight, patient wanting to AMA/agitated per RN. Precedex drip restarted. This morning seemed more somnolent. Current Medications Current Medications Medications: Home Medications apixaban 5 mg tablet (Eliquis) 5 mg PO 1XD 08/28/22 [History Confirmed 08/28/22] hydrochlorothiazide 25 mg tablet 25 mg PO 1XD 08/28/22 [History Confirmed 08/28/22] losartan 100 mg tablet 100 mg PO 1XD 08/28/22 [History Confirmed 08/28/22] Visit Medications (administered) Generic Name Dose Route Start Last Admin Trade Name Freq PRN Reason Stop Dose Admin Acetaminophen 650 mg 08/28/22 00:26 09/04/22 03:11 Acetaminophen 325 Mg Tablet PO 650 mg Q6H PRN Administration Fever/Mild Pain (1-3) Albuterol/Ipratropium 3 ml 09/02/22 19:00 09/04/22 08:59 Albuterol/Ipratropium 3 Ml Ampul INH 3 ml [id number] JASPREET Administration Benzocaine 1 each 08/30/22 02:20 08/30/22 17:15 Benzocaine/Menthol 1 Maisha Pkt PO 1 each Q4HR PRN Administration Sore Throat Budesonide 0.5 mg 09/02/22 20:00 09/04/22 08:59 Budesonide 0.5 Mg/2 Ml Neb INH 0.5 mg RTBID JASPREET Administration Chlordiazepoxide HCl 50 mg 09/03/22 09:45 09/04/22 10:44 Chlordiazepoxide 25 Mg Capsule PO 50 mg TID JASPREET Administration Dexamethasone 6 mg 08/28/22 09:00 09/04/22 10:44 Dexamethasone 10 Mg/Ml Vial IV 6 mg DAILY JASPREET Administration Enoxaparin Sodium 40 mg 09/01/22 09:00 09/04/22 10:44 Enoxaparin 40 Mg/0.4 Ml Syringe SUBCUT 40 mg DAILY JASPREET Administration Folic Acid 1 mg 08/28/22 09:00 09/04/22 10:44 Folic Acid 1 Mg Tablet PO 1 mg DAILY JASPREET Administration Hydrochlorothiazide 25 mg 09/02/22 15:45 09/03/22 10:08 Hydrochlorothiazide 25 Mg Tablet PO 25 mg DAILY JASPREET Administration Hydroxyzine Pamoate 50 mg 09/04/22 08:42 09/04/22 10:44 Hydroxyzine Pamoate 25 Mg Capsule PO 50 mg Q4HR PRN Administration Nausea dexmedeTOMIDine in 0.9 % NaCL 400 mcg in 100 mls @ 5.015 mls/hr 09/02/22 15:45 09/04/22 06:33 Precedex IV 0.6 mcg/kg/hr TITRATE JASPREET 15.045 mls/hr Administration Protocol 0.2 MCG/KG/HR Losartan Potassium 100 mg 09/02/22 15:45 09/03/22 10:08 Losartan 50 Mg Tablet PO 100 mg DAILY JASPREET Administration Metoprolol Tartrate 5 mg 09/03/22 21:33 09/03/22 21:47 Metoprolol Tartrate 5 Mg/5 Ml Inj IV 5 mg Q4HR PRN Administration Alcohol Withdrawal Multivitamins 1 tab 08/28/22 09:00 09/03/22 10:08 Multivitamin 1 Tablet PO 1 tab DAILY JASPREET Administration Oseltamivir Phosphate 75 mg 08/31/22 21:00 09/03/22 20:14 Oseltamivir 75 Mg Capsule PO 09/05/22 09:01 75 mg BID JASPREET Administration Quetiapine Fumarate 25 mg 09/03/22 11:00 09/03/22 20:14 Quetiapine 25 Mg Tablet PO 25 mg BID JASPREET Administration Quetiapine Fumarate 25 mg 09/03/22 16:44 09/04/22 03:11 Quetiapine 25 Mg Tablet PO 25 mg Q4H PRN Administration Agitation or anxiety Sodium Chloride 10 ml 08/29/22 21:00 09/03/22 20:13 Sodium Chloride 0.9% Flush IV 10 ml BID JASPREET Administration Objective Ventilator Parameters: Ventilator Settings FiO2 0.25 Labs Result Diagrams: 09/04/22 03:40 09/04/22 03:40 Labs: Laboratory Results - last 24 hr 09/03/22 09/04/22 09/04/22 10:53 03:40 03:40 WBC 5.9 RBC 4.25 L Hgb 14.5 Hct 43.4 MCV 102.1 H MCH 34.1 H MCHC 33.4 RDW 15.0 H Plt Count 179 Neut % (Auto) 74.3 Lymph % (Auto) 12.6 L Will % (Auto) 12.7 Eos % (Auto) 0.3 L Baso % (Auto) 0.1 Neut # (Auto) 4300 Lymph # (Auto) 700 L [place] # (Auto) 700 Eos # (Auto) 0 Baso # (Auto) 0 ABG pH 7.45 ABG pCO2 48.6 H ABG pO2 58 L ABG HCO3 10 L ABG Total CO2 35 H ABG O2 Saturation 90 L ABG Base Excess 10.0 H FiO2 21 Sodium 136 L Potassium 3.7 Chloride 98 Carbon Dioxide 36 H BUN 30 H Creatinine 0.78 Estimated GFR > 60 BUN/Creatinine Ratio 38.5 H Glucose 128 H Calcium 10.1 Exam Vital Signs (past 8 hours): - 09/04/22 04:00 09/04/22 03:00 09/04/22 03:01 Pulse Rate 90 Respiratory Rate 25 H Blood Pressure 164/100 H Pulse Oximetry 96 Oxygen Delivery Method Nasal Cannula Oxygen Flow Rate Fraction of Inspired Oxygen 09/04/22 03:01 09/04/22 04:00 09/04/22 05:00 Pulse Rate 91 H 76 72 Respiratory Rate 31 H 20 25 H Blood Pressure Pulse Oximetry 97 94 95 Oxygen Delivery Method Oxygen Flow Rate 3 Fraction of Inspired Oxygen 09/04/22 05:06 09/04/22 05:06 09/04/22 06:00 Pulse Rate 72 Respiratory Rate 21 Blood Pressure 165/85 H 168/86 H Pulse Oximetry 94 Oxygen Delivery Method Oxygen Flow Rate Fraction of Inspired Oxygen 09/04/22 06:00 09/04/22 09:16 Pulse Rate 67 60 Respiratory Rate 21 18 Blood Pressure Pulse Oximetry 96 94 Oxygen Delivery Method Oxygen Flow Rate 3 Fraction of Inspired Oxygen 32 Fraction of Inspired Oxygen 32 SaO2/FiO2 Ratio 293 Oxygen Delivery Method Nasal Cannula Oxygen Flow Rate 3 Narrative Exam Narrative: Patient not evaluated on Tele-Video due to COVID protocol per RN. Discussed with RN, RT. Quality TeleICU VTE Deep Vein Thrombosis/Pulmonary Embolism Present on Admission: No Assessment & Plan Assessment and plan (1) Acute hypercapnic respiratory failure: Status: Acute (2) COPD (chronic obstructive pulmonary disease): Status: Acute (3) COVID-19: Status: Acute (4) Influenza A: Status: Acute (5) Hypertension: Status: Acute Assessment & Plan narrative: - Stat blood gas. - Restart BiPAP if needed - Continue Precedex for ETOH withdrawal. CIWA protocol - Continue Librium, Seroquel. If blood gas is not worsening, would uptitrate L ibrium, Seroquel to help wean Precedex - Supplemental O2 as needed for sat goal >88% - Continue nebs, steroids - Tamiflu - Continue GI, VTE PPx -please call eICU if condition changes Time Spent With Patient Critical Care time: I spent a total of [] minutes of critical care time on this patient's care today; this time is exclusive of procedural time.
[2022-09-04] MEDS: OSELTAMIVIR 75 MG CAPSULE PO ×2 (10:46→17:35)
[2022-09-04] MEDS: SODIUM CHLORIDE 0.9% FLUSH 10 ML IV (10:47)
[2022-09-04] MEDS: hydroCHLOROthiazide 25 MG TABLET PO (10:51)
[2022-09-04 11:08] LABS: pH ABG 7.37 (7.35-7.45)
[2022-09-04 11:16] LABS: HCO3 ABG 38 mmol/L (22-26); Oxygen Saturation ABG 95 % (95-100); PCO2 ABG 65.6 mmHg (35-45); PO2 ABG 79 mmHg (80-100); TCO2 ABG 40 mmol/L (21-31)
[2022-09-04 11:17] LABS: Fractionated Inspired Oxygen 28
[2022-09-04 14:00] LABS: HCO3 ABG 34 mmol/L (22-26)
--- NOTE | 2022-09-04 14:41 | RT ---
Patient ambulated around room with [employer]. He briefly desated down to 88% but he went back up to 92-94% right after sitting back down. He is on room air.
--- NOTE | 2022-09-04 16:29 | P.DS_ITS ---
History of Present Illness History of Present Illness Chief complaint: SOB Narrative: 56-year-old male who arrived by EMS for evaluation of shortness of breath.? Patient does have a history of COPD but is not on home oxygen.? Unable to obtain history from the patient as he is currently on BiPAP and appears to be mildly encephalopathic.? History is obtained from his and the emergency department provider.? Patient is a smoker, per his he normally smokes 1 pack a day but as of recent has been smoking 2-3 packs per day.? Started having shortness of breath a couple days ago but worsening over the past 24 hours.? She denies he is had any fevers but is having a cough.?? Patient reports that he is having some heaviness on his chest.? Denied abdominal pain, nausea or vomiting.? Received 1 full DuoNeb by EMS and another half DuoNeb by EMS prior to arrival to the ED.?He states that the nebulizer has helped his breathing somewhat but he is not back to normal.? EMS reports they found the patient hypoxic into the 70s upon their arrival.? His saturations did improve with oxygen and nebulizer and was put on BiPAP in the ED.? As his breathing improved he became a little bit more anxious and was trying to take off his BiPAP mask. Initially the concern was a COPD exacerbation.? He did seem to be improving somewhat with the nebulizers but was still having very coarse breath sounds.? He did become somewhat somnolent.? An ABG was obtained.? He did have a respiratory acidosis with a CO2 of 108.? He also has an elevated BNP an elevated troponin concerning for CHF and was also hypertensive.? He was given nitro paste which improved his blood pressure.? Was given Lasix.? Troponin was unchanged after 2 hour repeat.? He was placed on BiPAP.? Initial EKG somewhat difficult to interpret given the baseline artifact.? Repeat EKG shows sinus tachycardia without ST elevations.? He was given steroids as well.? Repeat ABG shows improvement CO2 to 103.? He was tolerat bipap well.? He did have some episodes of agitation and confusion.? His CO2 continue to improve.? Patient was also positive for COVID and influenza a.? After discussion with the admission team he was started on remdesivir.? He does not have a history of CHF per family.? Will admit to ICU for further evaluation and treatment. Chest x-ray only indicated mild atypical pneumonia.? He does have an elevated white count at 14.9 with a moderate left shift of 13,000, platelet count 313.? Initial presenting pH was 7.13 it is now improved to 7.2, pCO2 was initially 108.5 and it is now 88.4 sodium 131 chloride 84 serum CO2 is 33 creatinine 2.18 unknown what his baseline is with an EGFR of 34 and a BUN of 29 glucose 159 initial troponin at 7:40 p.m. was 0.160, it increased to 0.174 at 9:45 p.m. and a 6 hour troponin is pending, proBNP was 3930 inpatient is positive for both COVID-19 and influenza a. Discharge Providers Provider Date of admission: 08/28/22 00:24 Discharge Date: 09/04/22 Consults: 09/02/22 11:30 Consult to [employer] Routine Comment: Consulting Provider: [employer] [employer] Reason for consultation: Product Consultant services Has provider been notified: Yes Discharge provider: Nilton Cruz MD Summary Hospital Course Discharge Diagnosis: 1. Acute hypoxic and hypercapnic respiratory failure 2. COVID pneumonia 3. Influenza a 4. CO2 retention, acute on chronic 5. Alcohol dependence with acute alcohol withdrawal 6. Acute metabolic encephalopathy 7. Acute kidney injury, resolved 8. 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 Cigarette nicotine dependency 10. History of deep venous thrombosis 11. Chronic oral anticoagulation with Eliquis Chest CTA:Pulmonary arteries:? Pulmonary arteries are normal in size, and demonstrate no intraluminal filling defects to suggest central pulmonary embolism.? ? Lungs and pleura:? Lungs are clear.? There right basilar infiltrate consistent with atelectasis and/or pneumonia.? There is a lobulated masslike opacity in the left lung base measuring 1.5 x 1.6 x 1.4 cm with several adjacent nodules.? A focal pneumonia is possible, however the area is suspicious for a solid mass.? Recommend follow-up imaging to ensure resolution.? No pleural effusions or pneumothorax.? Central and peripheral airways are patent.? ? Mediastinum:? Heart size is normal, without pericardial effusion.? No mediastinal or hilar adenopathy.? Thoracic aorta is normal in caliber and enhancement.? Esophagus is normal in caliber, without hiatal hernia.? ? Bones and chest wall:? No suspicious bony lesions.? Ribs and thoracic spine appear intact throughout.? Thyroid gland is normal.? No axillary or supraclavicular adenopathy.? ? Abdomen:? Visualized upper abdominal solid organs appear normal in the early arterial phase of enhancement.? Hospital Course: As noted patient presented with severe respiratory failure with acute hypoxia and hypercapnia. Is managed in the ICU on BiPAP. Lung imaging consistent with bibasilar pneumonia. He tested positive for both influenza a and COVID-19. Also was treated for significant alcohol withdrawal likely mixed with acute metabolic encephalopathy. This was all managed in the ICU. For primary management of pneumonia he received IV dexamethasone, nebulizers and Tamiflu as well as BiPAP management. He had resolution of acute renal injury with peak creatinine 3.36 improved down to 0.74. On day of discharge he was able to come off of O2 completely with maintaining good O2 sats at rest. He also had resolution of his alcohol withdrawal and encephalopathy. His CTA showed a left lower lung mass with adjacent nodules. Due to patient's smoking history this is suspicious for primary lung malignancy. Patient is he was discovered to have a lung mass some years ago and in fact was able to pull up a CT scan from March 2020 showing left lower lung mass measuring 1.6 cm in max diameter. He tells me this mass was never biopsied a that he was told it was abnormality due to an accident he had. However, he has extensive smoking history and a slow-growing primary malignancy would remain a concern. Findings were related to patient with recommendation he latest imaging with his PCP and discuss getting further evaluated with a lung biopsy or serial repeat imaging. Status at Discharge Cognitive/behavioral status at discharge: oriented Functional status at discharge: independent ambulation Overall status at discharge: patient is progressing back to baseline Time Spent with Patient Time spent: Greater than 30 minutes Exam Vital Signs (past 8 hours): - 09/04/22 09:16 09/04/22 09:00 09/04/22 09:00 Pulse Rate 60 59 L Respiratory Rate 18 18 Blood Pressure 156/79 H Pulse Oximetry 94 96 Oxygen Flow Rate 3 Fraction of Inspired Oxygen 32 09/04/22 10:00 09/04/22 10:00 09/04/22 11:00 Pulse Rate 79 Respiratory Rate 31 H Blood Pressure 149/83 H 148/78 H Pulse Oximetry 93 Oxygen Flow Rate Fraction of Inspired Oxygen 09/04/22 11:00 09/04/22 11:10 09/04/22 14:35 Pulse Rate 62 113 H Respiratory Rate 19 18 28 H Blood Pressure Pulse Oximetry 97 92 95 Oxygen Flow Rate 0 Fraction of Inspired Oxygen 21 Fraction of Inspired Oxygen 21 SaO2/FiO2 Ratio 452 Oxygen Delivery Method Nasal Cannula Oxygen Flow Rate 0 Narrative Exam Narrative: General: Alert and pleasant male resting comfortably in chair Lungs: Clear to auscultation Heart: Regular rhythm Extremities: No edema Neurological: Affect normal/pleasant, fully oriented Objective Labs Result Diagrams: 09/04/22 03:40 09/04/22 03:40 Labs: Laboratory Results - last 24 hr 09/03/22 09/04/22 09/04/22 10:53 03:40 03:40 WBC 5.9 RBC 4.25 L Hgb 14.5 Hct 43.4 MCV 102.1 H MCH 34.1 H MCHC 33.4 RDW 15.0 H Plt Count 179 Neut % (Auto) 74.3 Lymph % (Auto) 12.6 L [place] % (Auto) 12.7 Eos % (Auto) 0.3 L Baso % (Auto) 0.1 Neut # (Auto) 4300 Lymph # (Auto) 700 L [place] # (Auto) 700 Eos # (Auto) 0 Baso # (Auto) 0 ABG pH 7.45 ABG pCO2 48.6 H ABG pO2 58 L ABG HCO3 34 H ABG Total CO2 35 H ABG O2 Saturation 90 L ABG Base Excess 10.0 H FiO2 21 Sodium 136 L Potassium 3.7 Chloride 98 Carbon Dioxide 36 H BUN 30 H Creatinine 0.78 Estimated GFR > 60 BUN/Creatinine Ratio 38.5 H Glucose 128 H Calcium 10.1 09/04/22 10:40 WBC RBC Hgb Hct MCV MCH MCHC RDW Plt Count Neut % (Auto) Lymph % (Auto) [place] % (Auto) Eos % (Auto) Baso % (Auto) Neut # (Auto) Lymph # (Auto) [place] # (Auto) Eos # (Auto) Baso # (Auto) ABG pH 7.37 ABG pCO2 65.6 H* ABG pO2 79 L ABG HCO3 38 H ABG Total CO2 40 H ABG O2 Saturation 95 ABG Base Excess 12.0 H FiO2 28 Sodium Potassium Chloride Carbon Dioxide BUN Creatinine Estimated GFR BUN/Creatinine Ratio Glucose Calcium [facility] Medical History COPD (chronic obstructive pulmonary disease) Social History household members: spouse Smoking Status: Current every day smoker alcohol intake: current Discharge Plan Discharge Plan Patient Disposition: Home Provider Discharge Comment: You were treated for acute respiratory failure and pneumonia due to both influenza and COVID virus infections. You were also treated for acute alcohol withdrawal. You have a few more doses of the flu medication to complete treatment course. Take it easy for a while until you are feeling all better. Resume your home medications. Your lung imaging here showed a mass in the left lower lung. You informed me this finding is known to you but you have not had a biopsy of this mass. (You had a CT in March 2020 at [facility] which showed a 1.6 cm left lower lung mass.) Please review current CT report with your provider to discuss further evaluation such as biopsy or repeat imaging. Because of your smoking history I remain concerned this mass could represent a slow growing primary lung cancer. Stop smoking and avoid alcohol use as there are very detrimental to your health and well-being. As we discussed you can use nicotine patch to help you quit s moking. You should also give serious consideration to entering an alcohol treatment program such as AA. Discharge orders & Medications Prescriptions: New oseltamivir [Tamiflu] 75 mg Capsule 75 mg PO BID Qty: 3 0RF Continued Eliquis 5 mg tablet 5 mg PO 1XD hydrochlorothiazide 25 mg tablet 25 mg PO 1XD losartan 100 mg tablet 100 mg PO 1XD Diet/Activity/Treatments Diet: Regular Quality VTE Deep Vein Thrombosis/Pulmonary Embolism Present on Admission: No
[2022-09-17 17:30] LABS: pH ABG 7.36 (7.35-7.45)
== END 2022-09-04 18:05 | disposition home or self-care (01) | DRG 177 ==
LOC: ED 20:57 → AC 08-28 00:25 → ICU 08-28 14:33
PROVIDERS: Family Medicine; Internal Medicine; Internal Medicine Pulmonary Disease; Neuromusculoskeletal Medicine, Sports Medicine; Admitting Provider Nurse Practitioner Family; Emergency Provider Emergency Medicine; Referring Provider Emergency Medicine; Visit Provider Nurse Practitioner Family
DX: U07.1 COVID-19 (principal); G93.41 Metabolic encephalopathy; J12.82 Pneumonia due to coronavirus disease 2019; J96.01 Acute respiratory failure with hypoxia; J96.02 Acute respiratory failure with hypercapnia; E87.1 Hypo-osmolality and hyponatremia; F10.239 Alcohol dependence with withdrawal, unspecified; N17.9 Acute kidney failure, unspecified; E87.29 Other acidosis; J10.1 Influenza due to other identified influenza virus with other respiratory manifestations; F17.210 Nicotine dependence, cigarettes, uncomplicated; I10 Essential (primary) hypertension; Z79.01 Long term (current) use of anticoagulants; Z86.718 Personal history of other venous thrombosis and embolism
CPT/HCPCS: 0241U; 36415; 36600; 71045; 71275; 76700; 80048; 80053; 82550; 82570; 82805; 83690; 83735; 83880; 83930; 83935; 84300; 84484; 85025; 85027; 87797; 93005; 93306; 94640; 94660; 96365; 96366; 96367; 96368; 96375; 99285; 99291; C9113; J0692; J0696; J1100; J1650; J1940; J2060; J2930; J3475; J7613